=== PATIENT | female | born 1950 | race Caucasian/White ===

== ENCOUNTER 2017-05-29 08:55 | Inpatient (IN) | payer MEDICARE, MEDICAID ==
[~2017-05-29] VITALS: Ht 167.6 cm; Wt 69.6 kg
--- NOTE | 2017-05-29 09:23 | PHYS DOC ---
Past History Past Medical History: Dementia Past Surgical History: No Surgical History Smoking: Non-smoker Alcohol Use: None Drug Use: None Adult General Chief Complaint Chief Complaint: PSYCH EVALUATION HPI HPI Patient is a pleasant 66-year-old female who is living in a nursing facility right now with her caregivers brought her to the ER for a geriatric psychiatric evaluation secondary to her increased agitation, violence towards other members of the home and increased auditory hallucinations. Patient has had a six-month history of increasing aggression towards staff. There's been no change in medications, no trauma, her main complaint is bilateral ankle pain and foot pain is more increased with walking. She is also been refusing her medications refusing to eat and refusing to be compliant with staff. His continued to the point where staff cannot adequately take care of her. She denies any visual hallucinations, chest pain, shortness of breath, abdominal pain. Past medical problems include schizoaffective disorder SVT, hypothyroidism, Parkinson's, hypokalemia, hypertension, COPD, there is also report that given her schizoaffective disorder she is self harming by punching the wall throwing objects at staff and hallucinating. Hearing voices outside pinto and yelling refusing to eat meals and very paranoid. She was admitted to the monitor twice back in November 2016 in January 2017. Review of Systems Review of Systems Constitutional: Denies fever or chills [] Eyes: Denies change in visual acuity, redness, or eye pain [] HENT: Denies nasal congestion or sore throat [] Respiratory: Denies cough or shortness of breath [] Cardiovascular: No additional information not addressed in HPI [] GI: Denies abdominal pain, nausea, vomiting, bloody stools or diarrhea [] : Denies dysuria or hematuria [] Musculoskeletal: Denies back pain o chronic b/l ankle and foot pain Integument: Denies rash or skin lesions [] Neurologic: Denies headache, focal weakness or sensory changes [] Endocrine: Denies polyuria or polydipsia psych: She does hear voices. [] Physical Exam Physical Exam Impression is vital signs stable within normal limits with a normal blood pressure normal heart rate normal respiratory rate no fever. Constitutional: Well developed, well nourished, no acute distress, non-toxic appearance. [] HENT: Normocephalic, atraumatic, bilateral external ears normal, dry mucous members are no oral exudates poor dentition. Nose normal. [] Eyes: PERRLA, EOMI, conjunctiva normal, no discharge. [] Neck: Normal range of motion, no tenderness, supple, no stridor. [] Cardiovascular:Heart rate regular rhythm, no murmur [] Lungs & Thorax: Bilateral breath sounds clear to auscultation [] Abdomen: Bowel sounds normal, soft, no tenderness, no masses, no pulsatile masses. [] Skin: Warm, dry, no erythema, no rash. [] Back: No tenderness, no CVA tenderness. [] Extremities: No tenderness, no cyanosis, no clubbing, ROM intact, no edema. [] Neurologic: Patient is awake alert and oriented 2 with a resting tremor secondary to her Parkinson's. She was SPONTANEOUSLY WITH NORMAL 5 OUT OF 5 STRENGTH ACCORDING TO STAFF. PATIENT IS VASCULAR VENOUS CONGESTION OF THE LOWER EXTREMITY'S BILATERALLY CHANGE IN SKIN TONE AND COLOR.. [] Psychologic: sHe is very aggressive with regional understanding the situation. Is able to provide most of the history herself. [] Current Patient Data Vital Signs Vital Signs Date Time Temp Pulse Resp B/P (MAP) Pulse Ox O2 Delivery O2 Flow Rate FiO2 05/29/17 08:55 97.6 74 18 95 Room Air Lab Results Laboratory Tests Test 05/29/17 09:25 White Blood Count 8.4 x10^3/uL (4.0-11.0) Red Blood Count 4.10 x10^6/uL (3.50-5.40) Hemoglobin 12.4 g/dL (12.0-15.5) Hematocrit 37.6 % (36.0-47.0) Mean Corpuscular Volume 92 fL (79-100) Mean Corpuscular Hemoglobin 30 pg (25-35) Mean Corpuscular Hemoglobin Concent 33 g/dL (31-37) Red Cell Distribution Width 16.6 % (11.5-14.5) H Platelet Count 231 x10^3/uL (140-400) Neutrophils (%) (Auto) 54 % (31-73) Lymphocytes (%) (Auto) 36 % (24-48) Monocytes (%) (Auto) 6 % (0-9) Eosinophils (%) (Auto) 4 % (0-3) H Basophils (%) (Auto) 1 % (0-3) Neutrophils # (Auto) 4.5 x10^3uL (1.8-7.7) Lymphocytes # (Auto) 3.0 x10^3/uL (1.0-4.8) Monocytes # (Auto) 0.5 x10^3/uL (0.0-1.1) Eosinophils # (Auto) 0.3 x10^3/uL (0.0-0.7) Basophils # (Auto) 0.1 x10^3/uL (0.0-0.2) Sodium Level 146 mmol/L (136-145) H Potassium Level 4.3 mmol/L (3.5-5.1) Chloride Level 109 mmol/L (98-107) H Carbon Dioxide Level 33 mmol/L (21-32) H Anion Gap 4 (6-14) L Blood Urea Nitrogen 19 mg/dL (7-20) Creatinine 1.1 mg/dL (0.6-1.0) H Estimated GFR (Cockcroft-Gault) 49.5 BUN/Creatinine Ratio 17 (6-20) Glucose Level 112 mg/dL (70-99) H Calcium Level 9.2 mg/dL (8.5-10.1) Magnesium Level 2.3 mg/dL (1.8-2.4) Total Bilirubin 0.4 mg/dL (0.2-1.0) Aspartate Amino Transferase (AST) 13 U/L (15-37) L Alanine Aminotransferase (ALT) 11 U/L (14-59) L Alkaline Phosphatase 99 U/L (46-116) Troponin I Quantitative < 0.017 ng/mL (0-0.055) Total Protein 6.6 g/dL (6.4-8.2) Albumin 3.2 g/dL (3.4-5.0) L Albumin/Globulin Ratio 0.9 (1.0-1.7) L Salicylates Level 1.6 mg/dL (2.8-20.0) L Salicylate Last Dose Date 05/29/17 Salicylate Last Dose Time 0000 Acetaminophen Level < 2.0 mcg/mL (10-30) L Acetaminophen Last Dose Date Unknown Acetaminophen Last Dose Time Unknown EKG EKG [] EKG time 9:44 AM demonstrates atrial fibrillation with a heart rate of 56 no P waves discernible on EKG there is a nonspecific intraventricular delay with no specific ST segment elevations consistent with acute cardiac ischemia is a question will subtle ST segment depression in V1 and V2 [address] Krishnamurthy. Radiology/Procedures Radiology/Procedures [] Course & Med Decision Making Course & Med Decision Making Pertinent Labs and Imaging studies reviewed. (See chart for details) Here for medical screening exam for the psychiatric floor. Patient demonstrates an abnormal EKG chronic in nature likely, elevated sodium level CXLVI which will be concerning to her symptoms, elevated BUN/creatinine which looks chronic in nature as well. Patient's tox screen salicylates and acetaminophen level are all within unremarkable levels. Patient's been screened and ready for admission to the hospital once the urinalysis is complete Since urinalysis is returned there are no obvious signs of inflammation or infection causing her acute mental status changes. Patient is ready for admission to the psychiatric floor. [] Dragon Disclaimer Dragon Disclaimer This chart was dictated in whole or in part using Voice Recognition software in a busy, high-work load, and often noisy Emergency Department environment. It may contain unintended and wholly unrecognized errors or omissions. Departure Departure: Impression: Primary Impression: Dementia Additional Impression: Schizoaffective disorder Disposition: ADMITTED INPATIENT Admitting Physician: Other Condition: GUARDED Referrals: MARY ANN GRAY MD (PCP) Problem Qualifiers BRANDAN KRISHNAMURTHY MD May 29, 2017 09:23
[2017-05-29 09:40] LABS: BASO # 0.1 x10^3/uL (0.0-0.2); BASO % 1 % (0-3); EOS # 0.3 x10^3/uL (0.0-0.7); EOS % 4 % (0-3); HEMATOCRIT 37.6 % (36.0-47.0); HEMOGLOBIN 12.4 g/dL (12.0-15.5); LYMPH % 36 % (24-48); MEAN CORPUSCULAR HEMOGLOBIN 30 pg (25-35); MEAN CORPUSCULAR HGB CONC 33 g/dL (31-37); MEAN CORPUSCULAR VOLUME 92 fL (79-100); MONO # 0.5 x10^3/uL (0.0-1.1); MONO % 6 % (0-9); NEUT # 4.5 x10^3uL (1.8-7.7); NEUT % 54 % (31-73); PLATELET COUNT 231 x10^3/uL (140-400); RED CELL DISTRIBUTION WIDTH 16.6 % (11.5-14.5); WHITE BLOOD COUNT 8.4 x10^3/uL (4.0-11.0)
--- NOTE | 2017-05-29 09:53 | EKG ---
[address] [address] Test Date: 2017-05-29 Test Time: 09:44:42 Pat Name: AADIR PRECIADO Department: Room: Gender: F Upsetter: : 1950 Requested By: BRANDAN KRISHNAMURTHY Order Number: [id number] Reading MD: Mu Flores Measurements Intervals Pettigrew Rate: 56 P: PA: QRS: 45 QRSD: 132 T: 26 QT: 488 QTc: 474 Interpretive Statements SINUS RHYTHM NON SPECIFIC INTRAVENTRICULAR BLOCK RVH WITH REPOLARIZATION ABNORMALITY NONSPECIFIC ST-T WAVE CHANGES. RI6.01 Unconfirmed report No previous ECG available for comparison Electronically Signed On 06-04-2017 9:27:50 CDT by Mu Flores
[2017-05-29 09:54] LABS: ALBUMIN 3.2 g/dL (3.4-5.0); ALBUMIN/GLOBULIN RATIO 0.9 (1.0-1.7); CALCIUM 9.2 mg/dL (8.5-10.1); CREATININE 1.1 mg/dL (0.6-1.0); GFR 49.5; MAGNESIUM 2.3 mg/dL (1.8-2.4); POTASSIUM 4.3 mmol/L (3.5-5.1); TOTAL BILIRUBIN 0.4 mg/dL (0.2-1.0); TOTAL PROTEIN 6.6 g/dL (6.4-8.2)
[2017-05-29 09:55] LABS: ACETAMIN < 2.0 mcg/mL (10-30); SALIC 1.6 mg/dL (2.8-20.0)
[2017-05-29 11:37] LABS: AMPHETAMINE/METHAMPHETAMINE NEG (NEG); BARBITURATES NEG (NEG); BENZODIAZEPINES NEG (NEG); CANNABINOIDS NEG (NEG); COCAINE NEG (NEG); METHADONE NEG (NEG); OPIATES NEG (NEG); PHENCYCLIDINE NEG (NEG)
[2017-05-29 11:40] LABS: BACTERIA,URINE 0 /HPF (0-FEW); BILIRUBIN,URINE NEG (NEG); CLARITY,URINE CLEAR; COLOR,URINE YELLOW; GLUCOSE,URINE NEG (NEG); NITRITE,URINE NEG (NEG); RBC,URINE 0 /HPF (0-2); SQUAMOUS EPITHELIAL CELL,UR OCC /LPF; UROBILINOGEN,URINE 0.2 mg/dL (0.2 mg/dL); WBC,URINE RARE /HPF (0-4)
[2017-05-29 12:20] VITALS: BP 167/76
[2017-05-29] MEDS ORDERED: DILT60TA PO (13:32)
[2017-05-29] MEDS ORDERED: ALLO100T66 PO (13:32)
[2017-05-29] MEDS ORDERED: DEXT15DR5 OU (13:32)
[2017-05-29] MEDS ORDERED: ACET325T9 PO (13:32)
[2017-05-29] MEDS ORDERED: LEVO25TA55 PO (13:32)
[2017-05-29] MEDS ORDERED: ASPI-630 PO (13:32)
[2017-05-29] MEDS ORDERED: SENN8.6T99 PO (13:32)
[2017-05-29] MEDS ORDERED: POLY17PO5 PO (13:32)
[2017-05-29] MEDS ORDERED: NYST15PO9 TP (13:35)
[2017-05-29] MEDS ORDERED: DIVA125C PO ×2 (13:52)
[2017-05-29] MEDS ORDERED: OLAN5TAB5 PO (13:52)
[2017-05-29] MEDS ORDERED: QUET50TA5 PO (13:52)
[2017-05-29] MEDS ORDERED: QUET100T4 PO (13:52)
[2017-05-29] MEDS ORDERED: LORA0.5T PO (13:52)
[2017-05-29] MEDS ORDERED: OLAN10VI2 IM (13:52)
[2017-05-29] MEDS ORDERED: PRIM50TA PO (13:52)
[2017-05-29] MEDS ORDERED: NYSTATIN TOPICAL POWDER 15GM BOTTLE. TP PRN (14:15)
[2017-05-29] MEDS ORDERED: MAG HYDROX/AL HYDROX/SIMETH 30 ML ORAL.SUSP PO PRN (16:00)
[2017-05-29 16:05] VITALS: BP 168/71
[2017-05-29] MEDS: QUEtiapine 50 MG TABLET. PO SCH ×3 (16:58→21:00)
[2017-05-29] MEDS: LORazepam 0.5 MG TABLET PO PRN (16:58)
--- NOTE | 2017-05-29 19:57 | PDOC ---
Exam Darvin Demential Exam: Darvin Note: Please also refer to the separate dictated note~for this date of service dictated separately.~Patient seen individually. Discussed the patient with Nursing staff reviewed the chart.~Reviewed interim history and current functioning. Reviewed vital signs,~Labs/ Radiology~and current medications noted below. Continue current treatment with the changes noted in the dictated addendum note Assessment: Vital Signs: Vital Signs Date Time Temp Pulse Resp B/P (MAP) Pulse Ox O2 Delivery O2 Flow Rate FiO2 05/29/17 16:05 98.5 75 18 168/71 (103) 96 05/29/17 12:20 Room Air Labs: Laboratory Tests Test 05/29/17 09:25 05/29/17 11:10 White Blood Count 8.4 x10^3/uL (4.0-11.0) Red Blood Count 4.10 x10^6/uL (3.50-5.40) Hemoglobin 12.4 g/dL (12.0-15.5) Hematocrit 37.6 % (36.0-47.0) Mean Corpuscular Volume 92 fL (79-100) Mean Corpuscular Hemoglobin 30 pg (25-35) Mean Corpuscular Hemoglobin Concent 33 g/dL (31-37) Red Cell Distribution Width 16.6 % (11.5-14.5) H Platelet Count 231 x10^3/uL (140-400) Neutrophils (%) (Auto) 54 % (31-73) Lymphocytes (%) (Auto) 36 % (24-48) Monocytes (%) (Auto) 6 % (0-9) Eosinophils (%) (Auto) 4 % (0-3) H Basophils (%) (Auto) 1 % (0-3) Neutrophils # (Auto) 4.5 x10^3uL (1.8-7.7) Lymphocytes # (Auto) 3.0 x10^3/uL (1.0-4.8) Monocytes # (Auto) 0.5 x10^3/uL (0.0-1.1) Eosinophils # (Auto) 0.3 x10^3/uL (0.0-0.7) Basophils # (Auto) 0.1 x10^3/uL (0.0-0.2) Sodium Level 146 mmol/L (136-145) H Potassium Level 4.3 mmol/L (3.5-5.1) Chloride Level 109 mmol/L (98-107) H Carbon Dioxide Level 33 mmol/L (21-32) H Anion Gap 4 (6-14) L Blood Urea Nitrogen 19 mg/dL (7-20) Creatinine 1.1 mg/dL (0.6-1.0) H Estimated GFR (Cockcroft-Gault) 49.5 BUN/Creatinine Ratio 17 (6-20) Glucose Level 112 mg/dL (70-99) H Calcium Level 9.2 mg/dL (8.5-10.1) Magnesium Level 2.3 mg/dL (1.8-2.4) Iron Level 40 ug/dL (50-170) L Total Iron Binding Capacity 195 ug/dL (250-450) L Iron Saturation 21 % (15-34) Total Bilirubin 0.4 mg/dL (0.2-1.0) Aspartate Amino Transferase (AST) 13 U/L (15-37) L Alanine Aminotransferase (ALT) 11 U/L (14-59) L Alkaline Phosphatase 99 U/L (46-116) Troponin I Quantitative < 0.017 ng/mL (0-0.055) Total Protein 6.6 g/dL (6.4-8.2) Albumin 3.2 g/dL (3.4-5.0) L Albumin/Globulin Ratio 0.9 (1.0-1.7) L Vitamin B12 Level 275 pg/mL (247-911) Salicylates Level 1.6 mg/dL (2.8-20.0) L Salicylate Last Dose Date 05/29/17 Salicylate Last Dose Time 0000 Acetaminophen Level < 2.0 mcg/mL (10-30) L Acetaminophen Last Dose Date Unknown Acetaminophen Last Dose Time Unknown Urine Collection Type U cath Urine Color Yellow Urine Clarity Clear Urine pH 7.0 Urine Specific Dazey 1.015 Urine Protein Trace (NEG-TRACE) Urine Glucose (UA) Neg mg/dL (NEG) Urine Ketones (Stick) Neg mg/dL (NEG) Urine Blood Trace (NEG) Urine Nitrite Neg (NEG) Urine Bilirubin Neg (NEG) Urine Urobilinogen Dipstick 0.2 mg/dL (0.2 mg/dL) Urine Leukocyte Esterase Neg (NEG) Urine RBC 0 /HPF (0-2) Urine WBC Rare /HPF (0-4) Urine Squamous Epithelial Cells Occ /LPF Urine Bacteria 0 /HPF (0-FEW) Urine Opiates Screen Neg (NEG) Urine Methadone Screen Neg (NEG) Urine Barbiturates Neg (NEG) Urine Phencyclidine Screen Neg (NEG) Urine Amphetamine/Methamphetamine Neg (NEG) Urine Benzodiazepines Screen Neg (NEG) Urine Cocaine Screen Neg (NEG) Urine Cannabinoids Screen Neg (NEG) Urine Ethyl Alcohol Neg (NEG) Current Medications: Meds: Current Medications Acetaminophen (Tylenol) 650 mg PRN Q8HRS PRN PO PAIN; Start 05/29/17 at 14:15 Allopurinol (Zyloprim) 100 mg DAILY PO ; Start 05/30/17 at 09:00 Aspirin (Children'S Aspirin) 81 mg DAILY PO ; Start 05/30/17 at 09:00 Levothyroxine Sodium (Synthroid) 25 mcg DAILY06 PO ; Start 05/30/17 at 06:00 Nystatin (Nystop) 1 naida PRN BID PRN TP REDNESS; Start 05/29/17 at 14:15 Polyethylene Glycol (miraLAX) 17 gm DAILY PO ; Start 05/30/17 at 09:00 Primidone (Mysoline) 50 mg BID PO ; Start 05/29/17 at 21:00 Sennosides (Senna) 8.6 mg BID PO ; Start 05/29/17 at 21:00 Artificial Tears (Artificial Tears) 1 drop TID OU ; Start 05/29/17 at 21:00 Diltiazem HCl (Cardizem) 60 mg BID PO ; Start 05/29/17 at 21:00 Al Hydroxide/Mg Hydroxide (Mylanta Plus Xs) 15 ml PRN AFTMEALHC PRN PO DYSPEPSIA; Start 05/29/17 at 16:00 Magnesium Hydroxide (Milk Of Magnesia) 2,400 mg PRN QHS PRN PO CONSTIPATION; Start 05/29/17 at 16:00 Lorazepam (Ativan) 0.5 mg PRN Q4HRS PRN PO ANXIETY / AGITATION Last administered on 05/29/17 16:58; Start 05/29/17 at 16:45 Olanzapine (ZyPREXA ZYDIS) 5 mg PRN Q4HRS PRN PO PSYCHOSIS Last administered on 05/29/17 16:48; Start 8/8/17 at 16:45 Divalproex Sodium (Depakote Sprinkles) 500 mg DAILY PO ; Start 05/30/17 at 09:00 Divalproex Sodium (Depakote Sprinkles) 750 mg QHS PO ; Start 05/29/17 at 21:00 Quetiapine Fumarate (SEROquel) 150 mg 1700,2100 PO ; Start 05/29/17 at 17:00 Quetiapine Fumarate (SEROquel) 100 mg BIDWBKFT/ELINA PO ; Start 05/30/17 at 08:00; Stop 05/30/17 at 08:00; Status DC Pneumococcal Polyvalent Vaccine (Pneumovax 23) 0.5 ml ONCE ONCE VAX IM ; Start 05/30/17 at 09:00; Stop 05/30/17 at 09:01 Quetiapine Fumarate (SEROquel) 100 mg DAILY08 PO ; Start 05/30/17 at 08:00 Quetiapine Fumarate (SEROquel) 200 mg DAILYWLUN PO ; Start 05/30/17 at 12:00 Active Scripts Active Reported Lorazepam 0.5 Mg Tablet 1 Tab PO PRN Q4HRS PRN Zyprexa Zydis (Olanzapine) 5 Mg Tab.rapdis 5 Mg PO Q4HRS PRN Olanzapine Inj (Olanzapine) 10 Mg Vial 10 Mg IM PRN Q4HRS PRN Seroquel (Quetiapine Fumarate) 50 Mg Tablet 3 Tab PO BID17,21 Seroquel (Quetiapine Fumarate) 100 Mg Tablet 1 Tab PO BIDWBKFT/ELINA Primidone 50 Mg Tablet 50 Mg PO BID Depakote Sprinkle (Divalproex Sodium) 125 Mg Cap.sprink 750 Mg PO QHS Depakote Sprinkle (Divalproex Sodium) 125 Mg Cap.sprink 500 Mg PO DAILY Nystatin 15 Gm Powder 1 Naida TP BID PRN Diltiazem Hcl Tablet (Diltiazem Hcl) 60 Mg Tablet 60 Mg PO BID Tylenol (Acetaminophen) 325 Mg Tablet 2 Tab PO PRN Q8HRS PRN Artificial Tears Eye Drops (Dextran 70/Hypromellose) 15 Ml Drops 1 Drop EACHEYE TID Zyloprim (Allopurinol) 100 Mg Tablet 100 Mg PO DAILY Synthroid (Levothyroxine Sodium) 25 Mcg Tablet 1 Tab PO DAILY06 Senokot (Sennosides) 8.6 Mg Tablet 1 Tab PO BID Miralax (Polyethylene Glycol 3350) 17 Gm Powd.pack 1 Packet PO DAILY Aspirin 81 Mg Tab.chew 81 Mg PO DAILY Diagnosis: Problems: (1) Dementia (2) Schizoaffective disorder (3) Anxiety disorder (4) Impulse control disorder CARLA HOWARD MD May 29, 2017 19:57
[2017-05-29] MEDS: dilTIAZem HCL 30 MG TABLET PO SCH (20:09)
[2017-05-29] MEDS: SENNOSIDES 8.6 MG TABLET PO SCH (20:09)
[2017-05-29] MEDS: PRIMIDONE 50 MG TABLET PO SCH (20:09)
[2017-05-29] MEDS: DIVALPROEX 125 MG CAP.SPRINK PO SCH (20:10)
[2017-05-29] MEDS: POLYVINYL ALCOHOL 1.4% OPHTH SOLUTION 15ML BOTTLE. OU SCH (21:00)
--- NOTE | 2017-05-30 01:09 | ACF ---
Admission Criteria Forms PSYCHIATRIC DISORDERS Clinical Indications for Inpatient Care (Place 'X' for any and all applicable criteria): Ongoing inpatient care may be needed for 1 or more of the following(1)(2)(3)(4)( 6)(7)(8): [ ]I. Danger to self or others not manageable at lower level of care. [ ]II. Grave disability (eg, inability to perform self care necessary at lower level of care) [ ]III. Agitation or inappropriate behavior interfering with care for primary condition (eg, attempting to discontinue lines or drains prematurely, unable to cooperate with respiratory care) [X]IV. Severe disability or disorder indicated by ALL of the following: [X]a) Severe behavioral health disorder-related symptoms or condition indicated by 1 or more of the following: [ ]i) Severe problem with cognition, memory, judgment, or impulse control [X]ii) Severe clinical manifestations (eg, hallucinations, delusions, other acute psychotic symptoms, hebert, extreme agitation or anxiety) [X]b) Patient management at lower level of care is not feasible until acute intervention or modification is initiated. Extended stay beyond goal length of stay for the primary condition may be needed untilALLof the following are present(1)(2)(3)(4)(722)(23): [ ]a) Danger to self or others is absent or manageable at lower level of care [ ]b) Behavior crisis management, including physical or chemical restraints, is required and is not available at a lower level of care. [ ]c) Behavioral symptoms (e.g., agitation, somnolence, inappropriate behavior) are present, and are not manageable at a lower level of care. [ ]d) Patient cannot understand follow-up treatment and crisis plan. [ ]e) Provider and supports are sufficiently available at lower level of care. [ ]f) Patient can participate (e.g., verify absence of plan for harm) and is in needed of monitoring. The original [facility] Matter and Form content created by [facility] [employer] has been revised. The portions of the content which have been revised are identified through the use of italic text, and [employer] has neither reviewed nor approved the modified material. All other unmodified content is copyright [facility]. Please see references footnoted in the original [facility] edition 2015 Admission Criteria Met?: Yes MISHEL CRAWLEY May 30, 2017 01:09
--- NOTE | 2017-05-30 01:39 | PN ---
DATE: 05/29/2017 Psychiatric Admission History and Evaluation IDENTIFYING DATA: The patient is a 66-year-old female referred to us from [facility] in [place], [place] by Dr. Almita Gibson, her primary care physician, Dr. Mathew Traylor, psychiatrist, on account of worsening symptoms of her schizoaffective disorder, bipolar type. Reportedly, the patient has been "self harming, punching the pinto, throwing objects at staff members, oblivious of the danger posed by them." She has been hallucinating, hearing voices on the other side of the wall, yelling, refusing medications and paranoid. Symptoms have worsened for the past 3-4 months. She has failed outpatient psychiatric interventions and 2 psychiatric inpatient admissions at [facility] in [place], [place] in 11/2016 and 01/2017. CHIEF COMPLAINT: "Yes, I get upset. I am doing alright." HISTORY OF PRESENT ILLNESS: The patient has a long history of schizoaffective disorder, bipolar type. She has been residing at the [facility] nursing facility for some time. More recently getting angry, agitated, aggressive and increasingly psychotic. She has had significant sleep and appetite changes. Behaviors have been dangerous, staff have been using p.r.n. intramuscular Zyprexa and she has had to be on one-on-one status at the longterm due to her dangerous, out of control, unmanageable behaviors. REVIEW OF SYSTEMS: No clear suicidal or homicidal ideation other than the dangerous behaviors noted above. PAST PSYCHIATRIC HISTORY: Schizoaffective disorder, bipolar type, with psychotic features. MEDICAL HISTORY: Supraventricular tachycardia, hypothyroidism, Parkinson's disease, hypokalemia, hypertension, COPD, dry eye syndrome, functional dyspepsia, dysphagia, type 2 diabetes mellitus, gout. Diet is regular. She takes her medications. Whole UA in the ER is negative. DRUG ALLERGIES: CODEINE, FELDENE, PHENERGAN AND ORPHENOGEN. CODE STATUS: DNR. CURRENT PSYCHOTROPICS: Depakote 500 mg a.m. and 750 at bedtime, primidone 50 mg b.i.d., Seroquel 100 mg 0800 and noon and 150 mg at 1700 and 2100, Zyprexa IM p.r.n. and 5 mg q. 4 hours p.r.n. and Ativan 0.5 mg q. 4 hours p.r.n. FAMILY HISTORY: Noncontributory. SOCIAL HISTORY: No alcohol, drug abuse, physical, sexual or elder abuse history is noted. She is not known to be perpetrator . MENTAL STATUS EXAMINATION: The patient was seen individually on the evening of 05/29. She is oriented to herself and situation and she is in a wheelchair. jail staff report she can transfer herself with assistance, but more recently has been insistent that staff use the Gene lift. She has been paranoid, suspicious and has had intermittent hallucinations. Speech is coherent. Thought processes somewhat loose at times. Abstraction fair, computation impaired, attention span short, language function intact. Mood and affect remains labile. Intellect average. Insight limited, judgment marginal to standard questioning. Labs reviewed. REVIEW OF SYSTEMS: Ambulation impaired. No CV, , pulmonary, eye, ENT system symptoms on review. IMPRESSION: Schizoaffective disorder, bipolar type, mixed with psychotic features; anxiety disorder, unspecified; impulse control disorder, unspecified. Rest diagnoses as above. PLAN: Admit to the Geropsychiatry Unit at [facility]. I will see the patient daily individually from a psychiatric standpoint. Medical followup with Dr. Booth/Dr. Almeida. The patient has been quite demanding during the day today at lunchtime. At around 5:00 p.m., she has been screaming, spitting out her medications, quite psychotic and labile. We will increase her Seroquel, which is currently at a total dosage of 500 mg a day to a total dosage of 600 mg a day and continue Depakote. Check labs and valproic acid level to reach a therapeutic level of the Depakote. We will make further adjustments in the psychotropics as clinically indicated. CARLA HOWARD MD DR: MOISES/tamera JOB#: [id number] / [id number]
[2017-05-30] MEDS: LEVOTHYROXINE 25 MCG TABLET. PO SCH (05:06)
[2017-05-30 06:09] VITALS: BP 133/75
[2017-05-30 06:13] LABS: HEMOGLOBIN A1C 4.8 % (4.8-5.6); T3 TOTAL 81 ng/dL (71-180); THYROXINE 6.5 ug/dL (4.5-12.0)
[2017-05-30] MEDS ORDERED: QUEtiapine 100 MG TABLET. PO SCH (08:00)
[2017-05-30] MEDS: PRIMIDONE 50 MG TABLET PO SCH ×3 (09:00→19:55)
[2017-05-30] MEDS: SENNOSIDES 8.6 MG TABLET PO SCH ×3 (09:00→19:56)
[2017-05-30] MEDS: POLYVINYL ALCOHOL 1.4% OPHTH SOLUTION 15ML BOTTLE. OU SCH ×3 (09:00→20:43)
[2017-05-30] MEDS: ALLOPURINOL 100 MG TABLET. PO SCH ×2 (09:00→09:04)
[2017-05-30] MEDS: ASPIRIN 81 MG TAB.CHEW PO SCH ×2 (09:00→09:04)
[2017-05-30] MEDS ORDERED: PNEUMOC CONJ VACC 23-VALENT 0.5 ML VIAL. VAX IM ONE (09:00)
[2017-05-30] MEDS: dilTIAZem HCL 30 MG TABLET PO SCH ×2 (09:03→19:56)
[2017-05-30] MEDS: POLYETHYLENE GLYCOL 3350 17 GM PACKET. PO SCH (09:04)
[2017-05-30] MEDS: QUEtiapine 100 MG TABLET. PO SCH ×3 (09:04→11:53)
[2017-05-30] MEDS: DIVALPROEX 125 MG CAP.SPRINK PO SCH ×2 (09:04→19:57)
[2017-05-30 10:11] LABS: VAL ACID 46 mcg/mL (50-100)
[2017-05-30 13:46] LABS: THYROID STIM HORMONE (TSH) 3.865 uIU/mL (0.358-3.740)
[2017-05-30 16:18] VITALS: BP 119/69
[2017-05-30] MEDS: QUEtiapine 50 MG TABLET. PO SCH ×2 (17:23→19:55)
--- NOTE | 2017-05-30 19:51 | PDOC ---
Exam Darvin Demential Exam: Darvin Note: Please also refer to the separate dictated note~for this date of service dictated separately.~Patient seen individually. Discussed the patient with Nursing staff reviewed the chart.~Reviewed interim history and current functioning. Reviewed vital signs,~Labs/ Radiology~and current medications noted below. Continue current treatment with the changes noted in the dictated addendum note Assessment: Vital Signs: Vital Signs Date Time Temp Pulse Resp B/P (MAP) Pulse Ox O2 Delivery O2 Flow Rate FiO2 05/30/17 16:18 98.6 80 20 119/69 (86) 93 05/29/17 12:20 Room Air I&O Intake and Output 05/30/17 07:00 Intake Total 840 ml Balance 840 ml Intake Oral 840 ml # Voids 3 Labs: Laboratory Tests Test 05/30/17 09:22 Valproic Acid Level 46 mcg/mL (50-100) L Valproic Acid Last Dose Date 05/29/2017 Valproic Acid Last Dose Time 2100 Current Medications: Meds: Current Medications Acetaminophen (Tylenol) 650 mg PRN Q8HRS PRN PO PAIN; Start 05/29/17 at 14:15 Allopurinol (Zyloprim) 100 mg DAILY PO ; Start 05/30/17 at 09:00 Aspirin (Children'S Aspirin) 81 mg DAILY PO ; Start 05/30/17 at 09:00 Levothyroxine Sodium (Synthroid) 25 mcg DAILY06 PO Last administered on 05:06; Start 05/30/17 at 06:00 Nystatin (Nystop) 1 naida PRN BID PRN TP REDNESS; Start 05/29/17 at 14:15 Polyethylene Glycol (miraLAX) 17 gm DAILY PO Last administered on 05/30/17 09: 04; Start 05/30/17 at 09:00 Primidone (Mysoline) 50 mg BID PO Last administered on 05/29/17 20:09; Start at 21:00 Sennosides (Senna) 8.6 mg BID PO Last administered on 05/29/17 20:09; Start 05/29/17 at 21:00 Artificial Tears (Artificial Tears) 1 drop TID OU ; Start 05/29/17 at 21:00 Diltiazem HCl (Cardizem) 60 mg BID PO Last administered on 05/30/17 09:03; Start 05/29/17 at 21:00 Al Hydroxide/Mg Hydroxide (Mylanta Plus Xs) 15 ml PRN AFTMEALHC PRN PO DYSPEPSIA; Start 05/29/17 at 16:00 Magnesium Hydroxide (Milk Of Magnesia) 2,400 mg PRN QHS PRN PO CONSTIPATION; Start 05/29/17 at 16:00 Lorazepam (Ativan) 0.5 mg PRN Q4HRS PRN PO ANXIETY / AGITATION Last administered on 05/29/17 16:58; Start 05/29/17 at 16:45 Olanzapine (ZyPREXA ZYDIS) 5 mg PRN Q4HRS PRN PO PSYCHOSIS Last administered on 05/29/17 16:48; Start 05/29/17 at 16:45 Divalproex Sodium (Depakote Sprinkles) 500 mg DAILY PO Last administered on 05/30 09:04; Start 05/30/17 at 09:00 Divalproex Sodium (Depakote Sprinkles) 750 mg QHS PO Last administered on 20:10; Start 05/29/17 at 21:00 Quetiapine Fumarate (SEROquel) 150 mg 1700,2100 PO Last administered on 17:23; Start 05/29/17 at 17:00 Quetiapine Fumarate (SEROquel) 100 mg BIDWBKFT/ELINA PO ; Start 05/30/17 at 08:00; Stop 05/30/17 at 08:00; Status DC Pneumococcal Polyvalent Vaccine (Pneumovax 23) 0.5 ml ONCE ONCE VAX IM Last administered on 05/30/17 09:08; Start 05/30/17 at 09:00; Stop 05/30/17 at 09:01; Status DC Quetiapine Fumarate (SEROquel) 100 mg DAILY08 PO Last administered on 05/30/17 09:32; Start 05/30/17 at 08:00 Quetiapine Fumarate (SEROquel) 200 mg DAILYWLUN PO Last administered on 11:53; Start 05/30/17 at 12:00 Active Scripts Active Reported Lorazepam 0.5 Mg Tablet 1 Tab PO PRN Q4HRS PRN Zyprexa Zydis (Olanzapine) 5 Mg Tab.rapdis 5 Mg PO Q4HRS PRN Olanzapine Inj (Olanzapine) 10 Mg Vial 10 Mg IM PRN Q4HRS PRN Seroquel (Quetiapine Fumarate) 50 Mg Tablet 3 Tab PO BID17,21 Seroquel (Quetiapine Fumarate) 100 Mg Tablet 1 Tab PO BIDWBKFT/ELINA Primidone 50 Mg Tablet 50 Mg PO BID Depakote Sprinkle (Divalproex Sodium) 125 Mg Cap.sprink 750 Mg PO QHS Depakote Sprinkle (Divalproex Sodium) 125 Mg Cap.sprink 500 Mg PO DAILY Nystatin 15 Gm Powder 1 Naida TP BID PRN Diltiazem Hcl Tablet (Diltiazem Hcl) 60 Mg Tablet 60 Mg PO BID Tylenol (Acetaminophen) 325 Mg Tablet 2 Tab PO PRN Q8HRS PRN Artificial Tears Eye Drops (Dextran 70/Hypromellose) 15 Ml Drops 1 Drop EACHEYE TID Zyloprim (Allopurinol) 100 Mg Tablet 100 Mg PO DAILY Synthroid (Levothyroxine Sodium) 25 Mcg Tablet 1 Tab PO DAILY06 Senokot (Sennosides) 8.6 Mg Tablet 1 Tab PO BID Miralax (Polyethylene Glycol 3350) 17 Gm Powd.pack 1 Packet PO DAILY Aspirin 81 Mg Tab.chew 81 Mg PO DAILY Diagnosis: Problems: (1) Dementia (2) Schizoaffective disorder (3) Anxiety disorder (4) Impulse control disorder CARLA HOWARD MD May 30, 2017 19:51
[2017-05-31] MEDS: LEVOTHYROXINE 25 MCG TABLET. PO SCH (05:54)
[2017-05-31 06:52] VITALS: BP 102/60
[2017-05-31] MEDS: DIVALPROEX 125 MG CAP.SPRINK PO SCH ×2 (08:58→19:39)
[2017-05-31] MEDS: ALLOPURINOL 100 MG TABLET. PO SCH (08:58)
[2017-05-31] MEDS: dilTIAZem HCL 30 MG TABLET PO SCH ×2 (08:59→19:36)
[2017-05-31] MEDS: SENNOSIDES 8.6 MG TABLET PO SCH ×2 (08:59→19:36)
[2017-05-31] MEDS: ASPIRIN 81 MG TAB.CHEW PO SCH (08:59)
[2017-05-31] MEDS: POLYETHYLENE GLYCOL 3350 17 GM PACKET. PO SCH (08:59)
[2017-05-31] MEDS: PRIMIDONE 50 MG TABLET PO SCH ×2 (08:59→19:36)
[2017-05-31] MEDS: QUEtiapine 100 MG TABLET. PO SCH ×2 (08:59→12:14)
[2017-05-31] MEDS: POLYVINYL ALCOHOL 1.4% OPHTH SOLUTION 15ML BOTTLE. OU SCH ×3 (09:01→19:35)
[2017-05-31] MEDS: LORazepam 0.5 MG TABLET PO PRN (13:12)
[2017-05-31 16:32] VITALS: BP 114/70
[2017-05-31] MEDS: QUEtiapine 50 MG TABLET. PO SCH ×2 (17:28→19:36)
--- NOTE | 2017-05-31 18:51 | OP ---
DATE OF SURGERY: 05/30/2017 PSYCHIATRIC PROGRESS NOTE This is a late entry of 05/30/2017 covers elements not covered in my initial note of 05/30/2017. SUBJECTIVE: The patient slept 6-1/2 hours previous evening was somewhat paranoid in the morning. She is refusing the "white pills" because she feels these are poisonous. She took her Seroquel yelling is better. REVIEW OF SYSTEMS: Ambulation impaired. No CV, , pulmonary, eye, ENT system symptoms on review. MENTAL STATUS EXAM: Reasonably oriented. Speech coherent at times pressured. Abstraction fair, computation impaired, language function intact, attention span short. Mood and affect remains labile. IMPRESSION: Unchanged from initial note. PLAN: Continue current psychotropics including the increased Seroquel together with the Depakote. Check valproic acid level adjust to reach a therapeutic level. MAN Kranthi HOWARD MD DR: MOISES/tamera JOB#: [id number] / [id number]
--- NOTE | 2017-05-31 19:53 | PDOC ---
Exam Darvin Demential Exam: Darvin Note: Please also refer to the separate dictated note~for this date of service dictated separately.~Patient seen individually. Discussed the patient with Nursing staff reviewed the chart.~Reviewed interim history and current functioning. Reviewed vital signs,~Labs/ Radiology~and current medications noted below. Continue current treatment with the changes noted in the dictated addendum note Assessment: Vital Signs: Vital Signs Date Time Temp Pulse Resp B/P (MAP) Pulse Ox O2 Delivery O2 Flow Rate FiO2 05/31/17 19:36 68 114/70 05/31/17 16:32 98.6 18 97 Room Air I&O Intake and Output 05/31/17 07:00 Intake Total 1560 ml Balance 1560 ml Intake Oral 1560 ml # Voids 2 Current Medications: Meds: Current Medications Acetaminophen (Tylenol) 650 mg PRN Q8HRS PRN PO PAIN; Start 05/29/17 at 14:15 Allopurinol (Zyloprim) 100 mg DAILY PO Last administered on 05/31/17 08:58; Start 05/30/17 at 09:00 Aspirin (Children'S Aspirin) 81 mg DAILY PO Last administered on 05/31/17 08: 59; Start 05/30/17 at 09:00 Levothyroxine Sodium (Synthroid) 25 mcg DAILY06 PO Last administered on 05:54; Start 05/30/17 at 06:00 Nystatin (Nystop) 1 naida PRN BID PRN TP REDNESS; Start 05/29/17 at 14:15 Polyethylene Glycol (miraLAX) 17 gm DAILY PO Last administered on 05/31/17 08: 59; Start 05/30/17 at 09:00 Primidone (Mysoline) 50 mg BID PO Last administered on 05/31/17 19:36; Start 05/29/17 at 21:00 Sennosides (Senna) 8.6 mg BID PO Last administered on 05/31/17 19:36; Start at 21:00 Artificial Tears (Artificial Tears) 1 drop TID OU Last administered on 19:35; Start 05/29/17 at 21:00 Diltiazem HCl (Cardizem) 60 mg BID PO Last administered on 05/31/17 19:36; Start 05/29/17 at 21:00 Al Hydroxide/Mg Hydroxide (Mylanta Plus Xs) 15 ml PRN AFTMEALHC PRN PO DYSPEPSIA; Start 05/29/17 at 16:00 Magnesium Hydroxide (Milk Of Magnesia) 2,400 mg PRN QHS PRN PO CONSTIPATION; Start 05/29/17 at 16:00 Lorazepam (Ativan) 0.5 mg PRN Q4HRS PRN PO ANXIETY / AGITATION Last administered on 05/31/17 13:12; Start 05/29/17 at 16:45 Olanzapine (ZyPREXA ZYDIS) 5 mg PRN Q4HRS PRN PO PSYCHOSIS Last administered on 05/29/17 16:48; Start 05/29/17 at 16:45 Divalproex Sodium (Depakote Sprinkles) 500 mg DAILY PO Last administered on 08:58; Start 05/30/17 at 09:00; Stop 05/31/17 at 12:04; Status DC Divalproex Sodium (Depakote Sprinkles) 750 mg QHS PO Last administered on 19:57; Start 05/29/17 at 21:00; Stop 05/31/17 at 12:04; Status DC Quetiapine Fumarate (SEROquel) 150 mg 1700,2100 PO Last administered on 19:36; Start 05/29/17 at 17:00 Quetiapine Fumarate (SEROquel) 100 mg BIDWBKFT/ELINA PO ; Start 05/30/17 at 08:00; Stop 05/30/17 at 08:00; Status DC Pneumococcal Polyvalent Vaccine (Pneumovax 23) 0.5 ml ONCE ONCE VAX IM Last administered on 05/30/17 09:08; Start 05/30/17 at 09:00; Stop 05/30/17 at 09:01; Status DC Quetiapine Fumarate (SEROquel) 100 mg DAILY08 PO Last administered on 08:59; Start 05/30/17 at 08:00 Quetiapine Fumarate (SEROquel) 200 mg DAILYWLUN PO Last administered on 12:14; Start 05/30/17 at 12:00 Divalproex Sodium (Depakote Sprinkles) 1,000 mg QHS PO Last administered on t 19:39; Start 05/31/17 at 21:00 Divalproex Sodium (Depakote Sprinkles) 750 mg DAILY PO ; Start 06/01/17 at 09:00 Atorvastatin Calcium (Lipitor) 20 mg QHS PO ; Start 05/31/17 at 21:00 Cyanocobalamin (Vitamin B-12) 1,000 mcg [id number] IM ; Start 06/01/17 at 09:00 Vitamin D (Vitamin D3) 50,000 unit WEEKLY PO ; Start 06/01/17 at 09:00 Active Scripts Active Reported Lorazepam 0.5 Mg Tablet 1 Tab PO PRN Q4HRS PRN Zyprexa Zydis (Olanzapine) 5 Mg Tab.rapdis 5 Mg PO Q4HRS PRN Olanzapine Inj (Olanzapine) 10 Mg Vial 10 Mg IM PRN Q4HRS PRN Seroquel (Quetiapine Fumarate) 50 Mg Tablet 3 Tab PO BID17, Seroquel (Quetiapine Fumarate) 100 Mg Tablet 1 Tab PO BIDWBKFT/ELINA Primidone 50 Mg Tablet 50 Mg PO BID Depakote Sprinkle (Divalproex Sodium) 125 Mg Cap.sprink 750 Mg PO QHS Depakote Sprinkle (Divalproex Sodium) 125 Mg Cap.sprink 500 Mg PO DAILY Nystatin 15 Gm Powder 1 Naida TP BID PRN Diltiazem Hcl Tablet (Diltiazem Hcl) 60 Mg Tablet 60 Mg PO BID Tylenol (Acetaminophen) 325 Mg Tablet 2 Tab PO PRN Q8HRS PRN Artificial Tears Eye Drops (Dextran 70/Hypromellose) 15 Ml Drops 1 Drop EACHEYE TID Zyloprim (Allopurinol) 100 Mg Tablet 100 Mg PO DAILY Synthroid (Levothyroxine Sodium) 25 Mcg Tablet 1 Tab PO DAILY06 Senokot (Sennosides) 8.6 Mg Tablet 1 Tab PO BID Miralax (Polyethylene Glycol 3350) 17 Gm Powd.pack 1 Packet PO DAILY Aspirin 81 Mg Tab.chew 81 Mg PO DAILY Diagnosis: Problems: (1) Dementia (2) Schizoaffective disorder (3) Anxiety disorder (4) Impulse control disorder CARLA HOWARD MD May 31, 2017 19:53
--- NOTE | 2017-05-31 20:22 | HP ---
ADMIT DATE: 05/29/2017 REASON FOR ADMISSION TO [facility]: A 66-year-old female who was admitted on 05/29/2017 from [facility] in [place], [place]. She has been throwing objects at staff, hallucinating, hearing voices on the other side of the wall, yelling, refusing her meds and having paranoia. Onset of symptoms 3-4 months. PAST MEDICAL HISTORY: Schizoaffective disorder, supraventricular tachycardia, hypothyroidism, Parkinson disease, hypokalemia, hypertension, COPD, type 2 diabetes. ALLERGIES: CODEINE, ORPHENADRINE, PIROXICAM, PROMETHAZINE. MEDICATIONS: Reviewed. Do not see any p.r.n's that have been added except for lorazepam p.r.n. on 05/04/2017. HABITS: Do not believe she is able to smoke or drink. Functionality: The patient is [employer] total care patient. SOCIAL HISTORY: She does not walk. REVIEW OF SYSTEMS: The patient is very withdrawn and is not answering very many questions, very difficult to hear what she is saying. So did not get accurate review of systems because she is not answering my questions. OBJECTIVE: VITAL SIGNS: Blood pressure 119/69, pulse 80, respirations 20, temperature 98.6, pulse ox 93% on room air. Please note I had also gone to see this patient on 05/30/2017, but she was sleeping. GENERAL: The patient's color is pale. HEENT: Her eyes are clear. She has a significant ptosis of her eyelids, could not check the pupils. Her nose was patent. Her tongue was moist. NECK: Supple. LUNGS: Clear. CARDIOVASCULAR: Regular rhythm and rate with a 2/6 systolic murmur. ABDOMEN: Soft, nontender. EXTREMITIES: Without edema. NEUROLOGIC: Functionality, very limited use of hands and legs, can move her arms but minimally. She does have a tremor and could not take her through the cranial nerves. MENTAL STATUS: The patient is very quiet and withdrawn. LABORATORY DATA: Normal CBC and TSH is 3.865, vitamin D is 11.8. She also has elevated cholesterol and vitamin B12 was 275. ASSESSMENT: 1. Schizoaffective disorder. 2. Functional quadriplegia. 3. Fall risk. 4. Vitamin D deficiency. 5. Hyperlipidemia. 6. Low normal B12. We will replace per biological science technician's recommendation. 7. Diabetes. 8. Chronic obstructive pulmonary disease. 9. Hypertension. PLAN: Follow up with Dr. Fofana. Treat medical conditions. PAO ARRIOLA DO DR: JB/tamera JOB#: [id number] / [id number]
[2017-05-31] MEDS: ATORVASTATIN CALCIUM 20 MG TABLET PO SCH (21:00)
[2017-06-01 05:52] VITALS: BP 154/54
[2017-06-01] MEDS: LEVOTHYROXINE 25 MCG TABLET. PO SCH (06:42)
[2017-06-01] MEDS: QUEtiapine 100 MG TABLET. PO SCH ×3 (08:59→12:51)
[2017-06-01] MEDS ORDERED: CYANOCOBALAMIN (VITAMIN B-12) 1,000 MCG/ML VIAL IM SCH (09:00)
[2017-06-01] MEDS: SENNOSIDES 8.6 MG TABLET PO SCH ×2 (09:00→19:28)
[2017-06-01] MEDS: CHOLECALCIFEROL (VITAMIN D3) 50,000 UNIT CAPSULE PO SCH (09:00)
[2017-06-01] MEDS: DIVALPROEX 125 MG CAP.SPRINK PO SCH ×2 (09:06→19:25)
[2017-06-01] MEDS: POLYVINYL ALCOHOL 1.4% OPHTH SOLUTION 15ML BOTTLE. OU SCH ×3 (09:31→20:39)
[2017-06-01] MEDS: ASPIRIN 81 MG TAB.CHEW PO SCH (12:49)
[2017-06-01] MEDS: dilTIAZem HCL 30 MG TABLET PO SCH ×2 (12:49→19:25)
[2017-06-01] MEDS: POLYETHYLENE GLYCOL 3350 17 GM PACKET. PO SCH (12:50)
[2017-06-01] MEDS: ALLOPURINOL 100 MG TABLET. PO SCH (12:50)
[2017-06-01] MEDS: PRIMIDONE 50 MG TABLET PO SCH ×2 (12:50→19:29)
[2017-06-01 16:11] VITALS: BP 117/62
[2017-06-01] MEDS: QUEtiapine 50 MG TABLET. PO SCH ×2 (16:27→19:26)
[2017-06-01] MEDS: ATORVASTATIN CALCIUM 20 MG TABLET PO SCH (19:29)
[2017-06-01] MEDS: risperiDONE 0.5 MG TABLET. PO SCH (19:30)
--- NOTE | 2017-06-01 20:01 | PDOC ---
Exam Darvin Demential Exam: Darvin Note: Please also refer to the separate dictated note~for this date of service dictated separately.~Patient seen individually. Discussed the patient with Nursing staff reviewed the chart.~Reviewed interim history and current functioning. Reviewed vital signs,~Labs/ Radiology~and current medications noted below. Continue current treatment with the changes noted in the dictated addendum note Assessment: Vital Signs: Vital Signs Date Time Temp Pulse Resp B/P (MAP) Pulse Ox O2 Delivery O2 Flow Rate FiO2 06/01/17 19:25 81 117/62 06/01/17 16:11 97.9 16 98 05/31/17 16:32 Room Air I&O Intake and Output 06/01/17 07:00 Intake Total 1240 ml Balance 1240 ml Intake Oral 1240 ml Current Medications: Meds: Current Medications Acetaminophen (Tylenol) 650 mg PRN Q8HRS PRN PO PAIN; Start 05/29/17 at 14:15 Allopurinol (Zyloprim) 100 mg DAILY PO Last administered on 06/01/17 12:50; Start 05/30/17 at 09:00 Aspirin (Children'S Aspirin) 81 mg DAILY PO Last administered on 06/01/17 12: 49; Start 05/30/17 at 09:00 Levothyroxine Sodium (Synthroid) 25 mcg DAILY06 PO Last administered on 06:42; Start 05/30/17 at 06:00 Nystatin (Nystop) 1 naida PRN BID PRN TP REDNESS; Start 05/29/17 at 14:15 Polyethylene Glycol (miraLAX) 17 gm DAILY PO Last administered on 06/01/17 12: 50; Start 05/30/17 at 09:00 Primidone (Mysoline) 50 mg BID PO Last administered on 06/01/17 19:29; Start 05/29/17 at 21:00 Sennosides (Senna) 8.6 mg BID PO Last administered on 06/01/17 19:28; Start at 21:00 Artificial Tears (Artificial Tears) 1 drop TID OU Last administered on 19:35; Start 05/29/17 at 21:00 Diltiazem HCl (Cardizem) 60 mg BID PO Last administered on 06/01/17 19:25; Start 05/29/17 at 21:00 Al Hydroxide/Mg Hydroxide (Mylanta Plus Xs) 15 ml PRN AFTMEALHC PRN PO DYSPEPSIA; Start 05/29/17 at 16:00 Magnesium Hydroxide (Milk Of Magnesia) 2,400 mg PRN QHS PRN PO CONSTIPATION; Start 05/29/17 at 16:00 Lorazepam (Ativan) 0.5 mg PRN Q4HRS PRN PO ANXIETY / AGITATION Last administered on 05/31/17 13:12; Start 05/29/17 at 16:45 Olanzapine (ZyPREXA ZYDIS) 5 mg PRN Q4HRS PRN PO PSYCHOSIS Last administered on 06/01/17 18:37; Start 05/29/17 at 16:45 Divalproex Sodium (Depakote Sprinkles) 500 mg DAILY PO Last administered on 08:58; Start 05/30/17 at 09:00; Stop 05/31/17 at 12:04; Status DC Divalproex Sodium (Depakote Sprinkles) 750 mg QHS PO Last administered on 19:57; Start 05/29/17 at 21:00; Stop 05/31/17 at 12:04; Status DC Quetiapine Fumarate (SEROquel) 150 mg 1700,2100 PO Last administered on 19:26; Start 05/29/17 at 17:00 Quetiapine Fumarate (SEROquel) 100 mg BIDWBKFT/ELINA PO ; Start 05/30/17 at 08:00; Stop 05/30/17 at 08:00; Status DC Pneumococcal Polyvalent Vaccine (Pneumovax 23) 0.5 ml ONCE ONCE VAX IM Last administered on 05/30/17 09:08; Start 05/30/17 at 09:00; Stop 05/30/17 at 09:01; Status DC Quetiapine Fumarate (SEROquel) 100 mg DAILY08 PO Last administered on 12:51; Start 05/30/17 at 08:00; Stop 06/01/17 at 18:41; Status DC Quetiapine Fumarate (SEROquel) 200 mg DAILYWLUN PO Last administered on 12:14; Start 05/30/17 at 12:00 Divalproex Sodium (Depakote Sprinkles) 1,000 mg QHS PO Last administered on 19:25; Start 05/31/17 at 21:00 Divalproex Sodium (Depakote Sprinkles) 750 mg DAILY PO Last administered on 09:06; Start 06/01/17 at 09:00 Atorvastatin Calcium (Lipitor) 20 mg QHS PO Last administered on 06/01/17 19: 29; Start 05/31/17 at 21:00 Cyanocobalamin (Vitamin B-12) 1,000 mcg [id number] IM ; Start 06/01/17 at 09:00 Vitamin D (Vitamin D3) 50,000 unit WEEKLY PO ; Start 06/01/17 at 09:00 Quetiapine Fumarate (SEROquel) 50 mg DAILY08 PO ; Start 06/02/17 at 08:00 Risperidone (RisperDAL) 0.5 mg BID PO Last administered on 06/01/17 19:30; Start 06/01/17 at 21:00 Active Scripts Active Reported Lorazepam 0.5 Mg Tablet 1 Tab PO PRN Q4HRS PRN Zyprexa Zydis (Olanzapine) 5 Mg Tab.rapdis 5 Mg PO Q4HRS PRN Olanzapine Inj (Olanzapine) 10 Mg Vial 10 Mg IM PRN Q4HRS PRN Seroquel (Quetiapine Fumarate) 50 Mg Tablet 3 Tab PO BID17,21 Seroquel (Quetiapine Fumarate) 100 Mg Tablet 1 Tab PO BIDWBKFT/ELINA Primidone 50 Mg Tablet 50 Mg PO BID Depakote Sprinkle (Divalproex Sodium) 125 Mg Cap.sprink 750 Mg PO QHS Depakote Sprinkle (Divalproex Sodium) 125 Mg Cap.sprink 500 Mg PO DAILY Nystatin 15 Gm Powder 1 Naida TP BID PRN Diltiazem Hcl Tablet (Diltiazem Hcl) 60 Mg Tablet 60 Mg PO BID Tylenol (Acetaminophen) 325 Mg Tablet 2 Tab PO PRN Q8HRS PRN Artificial Tears Eye Drops (Dextran 70/Hypromellose) 15 Ml Drops 1 Drop EACHEYE TID Zyloprim (Allopurinol) 100 Mg Tablet 100 Mg PO DAILY Synthroid (Levothyroxine Sodium) 25 Mcg Tablet 1 Tab PO DAILY06 Senokot (Sennosides) 8.6 Mg Tablet 1 Tab PO BID Miralax (Polyethylene Glycol 3350) 17 Gm Powd.pack 1 Packet PO DAILY Aspirin 81 Mg Tab.chew 81 Mg PO DAILY Diagnosis: Problems: (1) Dementia (2) Schizoaffective disorder (3) Anxiety disorder (4) Impulse control disorder (5) Mild cognitive disorder CARLA HOWARD MD Jun 01, 2017 20:01
[2017-06-01] MEDS ORDERED: CHOL500050 PO (22:15)
[2017-06-01] MEDS ORDERED: CYAN10002 IM (22:17)
--- NOTE | 2017-06-01 22:18 | PN ---
DATE: 05/31/2017 This is a late entry for 05/31/2017 and covers elements not covered in my initial note of 05/31/2017. SUBJECTIVE: The patient was staffed at a treatment team meeting with the entire team the morning of 05/31/2017. She remains somewhat paranoid, psychotic, refuses white pills because she states they are poison and as I met with her the evening of 05/31/2017, she was convinced Seroquel was poison. She talks about having 31 children and then 300 children, something about burning the blending the bodies. REVIEW OF SYSTEMS: Ambulation impaired. No CV, , pulmonary, eye, ENT system symptoms on review. Reliability poor. MENTAL STATUS EXAM: Oriented to herself and situation. Speech is coherent, abstraction fair, computation impaired, language function intact. Attention span short. No active suicidal or homicidal ideation. LABORATORY DATA: Reviewed. IMPRESSION: Unchanged from initial note. PLAN: Valproic acid level is 47 on Depakote 500 in the morning and 750 at night, we will increase to 750 morning and 1000 at night. Check CBC, CMP, valproic acid level in 3 days. Maintain Seroquel at current dosage, Zyprexa and Ativan p.r.n. Adjust further as clinically indicated. If psychotic symptoms persist, may change Seroquel to Risperdal. MAN Kranthi HOWARD MD DR: MOISES/tamera JOB#: [id number] / [id number]
[2017-06-02 06:27] VITALS: BP 131/71
[2017-06-02] MEDS: LEVOTHYROXINE 25 MCG TABLET. PO SCH (06:38)
[2017-06-02] MEDS: POLYVINYL ALCOHOL 1.4% OPHTH SOLUTION 15ML BOTTLE. OU SCH ×4 (08:19→20:22)
[2017-06-02] MEDS: QUEtiapine 50 MG TABLET. PO SCH ×3 (08:19→20:00)
[2017-06-02] MEDS: dilTIAZem HCL 30 MG TABLET PO SCH ×2 (08:20→19:58)
[2017-06-02] MEDS: DIVALPROEX 125 MG CAP.SPRINK PO SCH ×2 (08:21→19:59)
[2017-06-02] MEDS: ASPIRIN 81 MG TAB.CHEW PO SCH (08:21)
[2017-06-02] MEDS: POLYETHYLENE GLYCOL 3350 17 GM PACKET. PO SCH (08:22)
[2017-06-02] MEDS: ALLOPURINOL 100 MG TABLET. PO SCH (08:22)
[2017-06-02] MEDS: SENNOSIDES 8.6 MG TABLET PO SCH ×3 (08:22→20:22)
[2017-06-02] MEDS: risperiDONE 0.5 MG TABLET. PO SCH ×2 (08:22→19:57)
[2017-06-02] MEDS: PRIMIDONE 50 MG TABLET PO SCH ×2 (08:22→19:57)
[2017-06-02] MEDS: QUEtiapine 100 MG TABLET. PO SCH (12:06)
[2017-06-02 16:32] VITALS: BP 119/64
[2017-06-02] MEDS: ATORVASTATIN CALCIUM 20 MG TABLET PO SCH (19:57)
--- NOTE | 2017-06-02 20:44 | PN ---
DATE: 06/01/2017 SUBJECTIVE: This is a late entry 06/01/2017, covers elements not covered in my initial note of 06/01/2017. The patient was seen individually evening of 06/01/2017. The patient has been actively hallucinating having visual hallucinations seeing people that are not there. She is quite labile in her mood, loud, verbally aggressive using racial slurs, and believes food is being poisoned, but she still got a reasonable appetite. She believes she is being fed rat poison and cyanide and that the Seroquel is rat poison. As a nursing staff attempted to administer her psychotropics, she looked to the corner of the room and said "the doctor told me not to take the medication." REVIEW OF SYSTEMS: Ambulation impaired in a wheelchair. No CV, , pulmonary, eye, or ENT system symptoms on review. Reliability is poor due to his psychotic symptoms. MENTAL STATUS EXAM: Oriented to herself and situation. Speech coherent, rapid, and loud at times. Insight limited, judgment marginal, and language function intact. Mood and affect labile and quite psychotic intermittently. LABORATORY DATA: Reviewed. IMPRESSION: Unchanged from initial note. PLAN: Staring it we will reduce the morning Seroquel from 100 mg down to 50 mg for two days and stop it. Maintain the rest of the Seroquel dosage and Depakote. Repeat labs level on the Depakote awaited on 06/03/2017. We will also start Risperdal 0.5 mg twice a day and as we get this to a therapeutic level, we will further taper and stop the Seroquel. Reviewed drug interactions in detail. Risk/benefit ratio favors no further change at this time. MAN Kranthi HOWARD MD DR: MOISES/tamera JOB#: [id number] / [id number]
--- NOTE | 2017-06-02 23:19 | PDOC ---
Exam Darvin Demential Exam: Darvin Note: Please also refer to the separate dictated note~for this date of service dictated separately.~Patient seen individually. Discussed the patient with Nursing staff reviewed the chart.~Reviewed interim history and current functioning. Reviewed vital signs,~Labs/ Radiology~and current medications noted below. Continue current treatment with the changes noted in the dictated addendum note Assessment: Vital Signs: Vital Signs Date Time Temp Pulse Resp B/P (MAP) Pulse Ox O2 Delivery O2 Flow Rate FiO2 06/02/17 19:58 66 119/64 06/02/17 16:32 98.7 16 95 06/02/17 06:27 Room Air I&O Intake and Output 06/02/17 07:00 Intake Total 840 ml Balance 840 ml Intake Oral 840 ml Current Medications: Meds: Current Medications Acetaminophen (Tylenol) 650 mg PRN Q8HRS PRN PO PAIN; Start 05/29/17 at 14:15 Allopurinol (Zyloprim) 100 mg DAILY PO Last administered on 06/02/17 08:22; Start 05/30/17 at 09:00 Aspirin (Children'S Aspirin) 81 mg DAILY PO Last administered on 06/02/17 08: 21; Start 05/30/17 at 09:00 Levothyroxine Sodium (Synthroid) 25 mcg DAILY06 PO Last administered on 06:38; Start 05/30/17 at 06:00 Nystatin (Nystop) 1 naida PRN BID PRN TP REDNESS; Start 05/29/17 at 14:15 Polyethylene Glycol (miraLAX) 17 gm DAILY PO Last administered on 06/02/17 08: 22; Start 05/30/17 at 09:00 Primidone (Mysoline) 50 mg BID PO Last administered on 06/02/17 19:57; Start 05/29/17 at 21:00 Sennosides (Senna) 8.6 mg BID PO Last administered on 06/02/17 08:22; Start at 21:00 Artificial Tears (Artificial Tears) 1 drop TID OU Last administered on 08:19; Start 05/29/17 at 21:00 Diltiazem HCl (Cardizem) 60 mg BID PO Last administered on 06/02/17 19:58; Start 05/29/17 at 21:00 Al Hydroxide/Mg Hydroxide (Mylanta Plus Xs) 15 ml PRN AFTMEALHC PRN PO DYSPEPSIA; Start 05/29/17 at 16:00 Magnesium Hydroxide (Milk Of Magnesia) 2,400 mg PRN QHS PRN PO CONSTIPATION; Start 05/29/17 at 16:00 Lorazepam (Ativan) 0.5 mg PRN Q4HRS PRN PO ANXIETY / AGITATION Last administered on 05/31/17 13:12; Start 05/29/17 at 16:45 Olanzapine (ZyPREXA ZYDIS) 5 mg PRN Q4HRS PRN PO PSYCHOSIS Last administered on 06/01/17 18:37; Start 05/29/17 at 16:45 Divalproex Sodium (Depakote Sprinkles) 500 mg DAILY PO Last administered on 08:58; Start 05/30/17 at 09:00; Stop 05/31/17 at 12:04; Status DC Divalproex Sodium (Depakote Sprinkles) 750 mg QHS PO Last administered on 19:57; Start 05/29/17 at 21:00; Stop 05/31/17 at 12:04; Status DC Quetiapine Fumarate (SEROquel) 150 mg 1700,2100 PO Last administered on 20:00; Start 05/29/17 at 17:00 Quetiapine Fumarate (SEROquel) 100 mg BIDWBKFT/ELINA PO ; Start 05/30/17 at 08:00; Stop 05/30/17 at 08:00; Status DC Pneumococcal Polyvalent Vaccine (Pneumovax 23) 0.5 ml ONCE ONCE VAX IM Last administered on 05/30/17 09:08; Start 05/30/17 at 09:00; Stop 05/30/17 at 09:01; Status DC Quetiapine Fumarate (SEROquel) 100 mg DAILY08 PO Last administered on 12:51; Start 05/30/17 at 08:00; Stop 06/01/17 at 18:41; Status DC Quetiapine Fumarate (SEROquel) 200 mg DAILYWLUN PO Last administered on 12:06; Start 05/30/17 at 12:00 Divalproex Sodium (Depakote Sprinkles) 1,000 mg QHS PO Last administered on 19:59; Start 05/31/17 at 21:00 Divalproex Sodium (Depakote Sprinkles) 750 mg DAILY PO Last administered on 08:21; Start 06/01/17 at 09:00 Atorvastatin Calcium (Lipitor) 20 mg QHS PO Last administered on 06/02/17 19: 57; Start 05/31/17 at 21:00 Cyanocobalamin (Vitamin B-12) 1,000 mcg [id number] IM ; Start 06/01/17 at 09:00 Vitamin D (Vitamin D3) 50,000 unit WEEKLY PO ; Start 06/01/17 at 09:00 Quetiapine Fumarate (SEROquel) 50 mg DAILY08 PO Last administered on 06/02/17 08:19; Start 06/02/17 at 08:00 Risperidone (RisperDAL) 0.5 mg BID PO Last administered on 06/02/17 19:57; Start 06/01/17 at 21:00 Active Scripts Active Reported Lorazepam 0.5 Mg Tablet 1 Tab PO PRN Q4HRS PRN Zyprexa Zydis (Olanzapine) 5 Mg Tab.rapdis 5 Mg PO Q4HRS PRN Olanzapine Inj (Olanzapine) 10 Mg Vial 10 Mg IM PRN Q4HRS PRN Seroquel (Quetiapine Fumarate) 50 Mg Tablet 3 Tab PO BID17,21 Seroquel (Quetiapine Fumarate) 100 Mg Tablet 1 Tab PO BIDWBKFT/ELINA Primidone 50 Mg Tablet 50 Mg PO BID Depakote Sprinkle (Divalproex Sodium) 125 Mg Cap.sprink 750 Mg PO QHS Depakote Sprinkle (Divalproex Sodium) 125 Mg Cap.sprink 500 Mg PO DAILY Nystatin 15 Gm Powder 1 Naida TP BID PRN Diltiazem Hcl Tablet (Diltiazem Hcl) 60 Mg Tablet 60 Mg PO BID Tylenol (Acetaminophen) 325 Mg Tablet 2 Tab PO PRN Q8HRS PRN Artificial Tears Eye Drops (Dextran 70/Hypromellose) 15 Ml Drops 1 Drop EACHEYE TID Zyloprim (Allopurinol) 100 Mg Tablet 100 Mg PO DAILY Synthroid (Levothyroxine Sodium) 25 Mcg Tablet 1 Tab PO DAILY06 Senokot (Sennosides) 8.6 Mg Tablet 1 Tab PO BID Miralax (Polyethylene Glycol 3350) 17 Gm Powd.pack 1 Packet PO DAILY Aspirin 81 Mg Tab.chew 81 Mg PO DAILY Diagnosis: Problems: (1) Dementia (2) Schizoaffective disorder (3) Anxiety disorder (4) Impulse control disorder (5) Mild cognitive disorder CARLA HOWARD MD Jun 02, 2017 23:19
[2017-06-03] MEDS: LEVOTHYROXINE 25 MCG TABLET. PO SCH (05:32)
[2017-06-03 06:20] VITALS: BP 159/69
[2017-06-03 07:51] LABS: BASO % 0 % (0-3); EOS # 0.1 x10^3/uL (0.0-0.7); EOS % 1 % (0-3); HEMATOCRIT 35.9 % (36.0-47.0); HEMOGLOBIN 11.7 g/dL (12.0-15.5); LYMPH # 2.1 x10^3/uL (1.0-4.8); LYMPH % 30 % (24-48); MEAN CORPUSCULAR HEMOGLOBIN 30 pg (25-35); MEAN CORPUSCULAR HGB CONC 33 g/dL (31-37); MEAN CORPUSCULAR VOLUME 91 fL (79-100); MONO # 0.4 x10^3/uL (0.0-1.1); MONO % 6 % (0-9); NEUT # 4.4 x10^3uL (1.8-7.7); NEUT % 63 % (31-73); PLATELET COUNT 224 x10^3/uL (140-400); RED BLOOD COUNT 3.93 x10^6/uL (3.50-5.40); RED CELL DISTRIBUTION WIDTH 16.2 % (11.5-14.5)
[2017-06-03] MEDS: QUEtiapine 50 MG TABLET. PO SCH ×4 (07:55→20:53)
[2017-06-03] MEDS: dilTIAZem HCL 30 MG TABLET PO SCH ×2 (07:56→20:55)
[2017-06-03] MEDS: ASPIRIN 81 MG TAB.CHEW PO SCH (07:56)
[2017-06-03] MEDS: risperiDONE 0.5 MG TABLET. PO SCH ×2 (07:58→20:53)
[2017-06-03] MEDS: PRIMIDONE 50 MG TABLET PO SCH ×2 (07:58→20:53)
[2017-06-03] MEDS: DIVALPROEX 125 MG CAP.SPRINK PO SCH (07:58)
[2017-06-03] MEDS: ALLOPURINOL 100 MG TABLET. PO SCH (07:59)
[2017-06-03 08:09] LABS: ALBUMIN/GLOBULIN RATIO 0.9 (1.0-1.7); ALK PHOS 96 U/L (46-116); ALT (SGPT) 7 U/L (14-59); ANION GAP 7 (6-14); AST (SGOT) 7 U/L (15-37); BLOOD UREA NITROGEN 33 mg/dL (7-20); BUN/CREATININE RATIO 28 (6-20); CALCIUM 9.6 mg/dL (8.5-10.1); CARBON DIOXIDE 29 mmol/L (21-32); CHLORIDE 106 mmol/L (98-107); CREATININE 1.2 mg/dL (0.6-1.0); GFR 44.8; GLUCOSE 101 mg/dL (70-99); MAGNESIUM 2.7 mg/dL (1.8-2.4); POTASSIUM 4.5 mmol/L (3.5-5.1); SODIUM 142 mmol/L (136-145); TOTAL BILIRUBIN 0.3 mg/dL (0.2-1.0); TOTAL PROTEIN 6.5 g/dL (6.4-8.2)
[2017-06-03 08:11] LABS: VAL ACID 129 mcg/mL (50-100)
[2017-06-03] MEDS: POLYVINYL ALCOHOL 1.4% OPHTH SOLUTION 15ML BOTTLE. OU SCH ×3 (09:00→20:52)
[2017-06-03] MEDS: POLYETHYLENE GLYCOL 3350 17 GM PACKET. PO SCH (09:00)
[2017-06-03] MEDS: SENNOSIDES 8.6 MG TABLET PO SCH ×2 (09:00→20:55)
[2017-06-03] MEDS: QUEtiapine 100 MG TABLET. PO SCH (13:06)
[2017-06-03 17:33] VITALS: BP 67/54
[2017-06-03 17:36] VITALS: BP 106/76
--- NOTE | 2017-06-03 20:26 | PDOC ---
Exam Dravin Demential Exam: Darvin Note: Please also refer to the separate dictated note~for this date of service dictated separately.~Patient seen individually. Discussed the patient with Nursing staff reviewed the chart.~Reviewed interim history and current functioning. Reviewed vital signs,~Labs/ Radiology~and current medications noted below. Continue current treatment with the changes noted in the dictated addendum note Assessment: Vital Signs: Vital Signs Date Time Temp Pulse Resp B/P (MAP) Pulse Ox O2 Delivery O2 Flow Rate FiO2 06/03/17 17:36 98.6 72 16 106/76 (86) 98 06/02/17 06:27 Room Air I&O Intake and Output 06/03/17 07:00 Intake Total 1300 ml Balance 1300 ml Intake Oral 1300 ml Labs: Laboratory Tests Test 06/03/17 07:20 White Blood Count 7.0 x10^3/uL (4.0-11.0) Red Blood Count 3.93 x10^6/uL (3.50-5.40) Hemoglobin 11.7 g/dL (12.0-15.5) L Hematocrit 35.9 % (36.0-47.0) L Mean Corpuscular Volume 91 fL (79-100) Mean Corpuscular Hemoglobin 30 pg (25-35) Mean Corpuscular Hemoglobin Concent 33 g/dL (31-37) Red Cell Distribution Width 16.2 % (11.5-14.5) H Platelet Count 224 x10^3/uL (140-400) Neutrophils (%) (Auto) 63 % (31-73) Lymphocytes (%) (Auto) 30 % (24-48) Monocytes (%) (Auto) 6 % (0-9) Eosinophils (%) (Auto) 1 % (0-3) Basophils (%) (Auto) 0 % (0-3) Neutrophils # (Auto) 4.4 x10^3uL (1.8-7.7) Lymphocytes # (Auto) 2.1 x10^3/uL (1.0-4.8) Monocytes # (Auto) 0.4 x10^3/uL (0.0-1.1) Eosinophils # (Auto) 0.1 x10^3/uL (0.0-0.7) Basophils # (Auto) 0.0 x10^3/uL (0.0-0.2) Sodium Level 142 mmol/L (136-145) Potassium Level 4.5 mmol/L (3.5-5.1) Chloride Level 106 mmol/L (98-107) Carbon Dioxide Level 29 mmol/L (21-32) Anion Gap 7 (6-14) Blood Urea Nitrogen 33 mg/dL (7-20) H Creatinine 1.2 mg/dL (0.6-1.0) H Estimated GFR (Cockcroft-Gault) 44.8 BUN/Creatinine Ratio 28 (6-20) H Glucose Level 101 mg/dL (70-99) H Calcium Level 9.6 mg/dL (8.5-10.1) Magnesium Level 2.7 mg/dL (1.8-2.4) H Total Bilirubin 0.3 mg/dL (0.2-1.0) Aspartate Amino Transferase (AST) 7 U/L (15-37) L Alanine Aminotransferase (ALT) 7 U/L (14-59) L Alkaline Phosphatase 96 U/L (46-116) Total Protein 6.5 g/dL (6.4-8.2) Albumin 3.0 g/dL (3.4-5.0) L Albumin/Globulin Ratio 0.9 (1.0-1.7) L Valproic Acid Level 129 mcg/mL (50-100) H Valproic Acid Last Dose Date 06/02/17 Valproic Acid Last Dose Time 2100 Current Medications: Meds: Current Medications Acetaminophen (Tylenol) 650 mg PRN Q8HRS PRN PO PAIN; Start 05/29/17 at 14:15 Allopurinol (Zyloprim) 100 mg DAILY PO Last administered on 06/03/17 07:59; Start 05/30/17 at 09:00 Aspirin (Children'S Aspirin) 81 mg DAILY PO Last administered on 06/03/17 07: 56; Start 05/30/17 at 09:00 Levothyroxine Sodium (Synthroid) 25 mcg DAILY06 PO Last administered on 05:32; Start 05/30/17 at 06:00 Nystatin (Nystop) 1 naida PRN BID PRN TP REDNESS; Start 05/29/17 at 14:15 Polyethylene Glycol (miraLAX) 17 gm DAILY PO Last administered on 06/02/17 08: 22; Start 05/30/17 at 09:00 Primidone (Mysoline) 50 mg BID PO Last administered on 06/03/17 07:58; Start 05/29/17 at 21:00 Sennosides (Senna) 8.6 mg BID PO Last administered on 06/02/17 08:22; Start at 21:00 Artificial Tears (Artificial Tears) 1 drop TID OU Last administered on 08:19; Start 05/29/17 at 21:00 Diltiazem HCl (Cardizem) 60 mg BID PO Last administered on 06/03/17 07:56; Start 05/29/17 at 21:00 Al Hydroxide/Mg Hydroxide (Mylanta Plus Xs) 15 ml PRN AFTMEALHC PRN PO DYSPEPSIA; Start 05/29/17 at 16:00 Magnesium Hydroxide (Milk Of Magnesia) 2,400 mg PRN QHS PRN PO CONSTIPATION; Start 05/29/17 at 16:00 Lorazepam (Ativan) 0.5 mg PRN Q4HRS PRN PO ANXIETY / AGITATION Last administered on 05/31/17 13:12; Start 05/29/17 at 16:45 Olanzapine (ZyPREXA ZYDIS) 5 mg PRN Q4HRS PRN PO PSYCHOSIS Last administered on 06/01/17 18:37; Start 05/29/17 at 16:45 Divalproex Sodium (Depakote Sprinkles) 500 mg DAILY PO Last administered on 08:58; Start 05/30/17 at 09:00; Stop 05/31/17 at 12:04; Status DC Divalproex Sodium (Depakote Sprinkles) 750 mg QHS PO Last administered on 19:57; Start 05/29/17 at 21:00; Stop 05/31/17 at 12:04; Status DC Quetiapine Fumarate (SEROquel) 150 mg 1700,2100 PO Last administered on 17:10; Start 05/29/17 at 17:00 Quetiapine Fumarate (SEROquel) 100 mg BIDWBKFT/ELINA PO ; Start 05/30/17 at 08:00; Stop 05/30/17 at 08:00; Status DC Pneumococcal Polyvalent Vaccine (Pneumovax 23) 0.5 ml ONCE ONCE VAX IM Last administered on 05/30/17 09:08; Start 05/30/17 at 09:00; Stop 05/30/17 at 09:01; Status DC Quetiapine Fumarate (SEROquel) 100 mg DAILY08 PO Last administered on 12:51; Start 05/30/17 at 08:00; Stop 06/01/17 at 18:41; Status DC Quetiapine Fumarate (SEROquel) 200 mg DAILYWLUN PO Last administered on 13:06; Start 05/30/17 at 12:00; Stop 06/03/17 at 19:21; Status DC Divalproex Sodium (Depakote Sprinkles) 1,000 mg QHS PO Last administered on 19:59; Start 05/31/17 at 21:00; Stop 06/03/17 at 09:51; Status DC Divalproex Sodium (Depakote Sprinkles) 750 mg DAILY PO Last administered on 07:58; Start 06/01/17 at 09:00; Stop 06/03/17 at 09:51; Status DC Atorvastatin Calcium (Lipitor) 20 mg QHS PO Last administered on 06/02/17 19: 57; Start 05/31/17 at 21:00 Cyanocobalamin (Vitamin B-12) 1,000 mcg [id number] IM ; Start 06/01/17 at 09:00 Vitamin D (Vitamin D3) 50,000 unit WEEKLY PO ; Start 06/01/17 at 09:00 Quetiapine Fumarate (SEROquel) 50 mg DAILY08 PO Last administered on 06/02/17 08:19; Start 06/02/17 at 08:00; Stop 06/03/17 at 19:22; Status DC Risperidone (RisperDAL) 0.5 mg BID PO Last administered on 06/03/17 07:58; Start 06/01/17 at 21:00 Divalproex Sodium (Depakote Sprinkles) 500 mg 1X ONCE PO ; Start 06/03/17 at 21 :00; Stop 06/03/17 at 21:01 Divalproex Sodium (Depakote Sprinkles) 500 mg DAILY PO ; Start 06/04/17 at 09:00 Divalproex Sodium (Depakote Sprinkles) 750 mg HS PO ; Start 06/04/17 at 21:00 Quetiapine Fumarate (SEROquel) 100 mg DAILYWLUN PO ; Start 06/04/17 at 12:00; Stop 06/05/17 at 12:01 Active Scripts Active Reported Lorazepam 0.5 Mg Tablet 1 Tab PO PRN Q4HRS PRN Zyprexa Zydis (Olanzapine) 5 Mg Tab.rapdis 5 Mg PO Q4HRS PRN Olanzapine Inj (Olanzapine) 10 Mg Vial 10 Mg IM PRN Q4HRS PRN Seroquel (Quetiapine Fumarate) 50 Mg Tablet 3 Tab PO BID17,21 Seroquel (Quetiapine Fumarate) 100 Mg Tablet 1 Tab PO BIDWBKFT/LEINA Primidone 50 Mg Tablet 50 Mg PO BID Depakote Sprinkle (Divalproex Sodium) 125 Mg Cap.sprink 750 Mg PO QHS Depakote Sprinkle (Divalproex Sodium) 125 Mg Cap.sprink 500 Mg PO DAILY Nystatin 15 Gm Powder 1 Naida TP BID PRN Diltiazem Hcl Tablet (Diltiazem Hcl) 60 Mg Tablet 60 Mg PO BID Tylenol (Acetaminophen) 325 Mg Tablet 2 Tab PO PRN Q8HRS PRN Artificial Tears Eye Drops (Dextran 70/Hypromellose) 15 Ml Drops 1 Drop EACHEYE TID Zyloprim (Allopurinol) 100 Mg Tablet 100 Mg PO DAILY Synthroid (Levothyroxine Sodium) 25 Mcg Tablet 1 Tab PO DAILY06 Senokot (Sennosides) 8.6 Mg Tablet 1 Tab PO BID Miralax (Polyethylene Glycol 3350) 17 Gm Powd.pack 1 Packet PO DAILY Aspirin 81 Mg Tab.chew 81 Mg PO DAILY Diagnosis: Problems: (1) Dementia (2) Schizoaffective disorder (3) Anxiety disorder (4) Impulse control disorder (5) Mild cognitive disorder CARLA HOWARD MD Jun 03, 2017 20:26
[2017-06-03] MEDS: ATORVASTATIN CALCIUM 20 MG TABLET PO SCH (20:55)
[2017-06-03] MEDS ORDERED: DIVALPROEX 125 MG CAP.SPRINK PO ONE (21:00)
--- NOTE | 2017-06-03 22:02 | PN ---
DATE: 06/02/2017 I met with the patient evening of 06/02/2017. Per nursing report, the patient remains somewhat paranoid, but has had a better day, less labile, less aggressive. REVIEW OF SYSTEMS: Ambulation impaired. No CV, , pulmonary, eye, ENT system symptoms on review, lability poor. MENTAL STATUS EXAM: Oriented to herself and situation. Speech is coherent, less pressured. Abstraction fair, computation impaired, language function intact, attention span short. Mood and affect less labile. LABORATORY DATA: Reviewed. IMPRESSION: Unchanged from initial note. PLAN: Check valproic acid level in the morning of 06/03/2017 and then adjust the Depakote. Last valproic acid level was 47, continue Risperdal, Seroquel and we will go ahead and increase the Risperdal by 0.25 mg daily and then reduce the Seroquel further. MAN Kranthi HOWARD MD DR: MOISES/tamera JOB#: [id number] / [id number]
[2017-06-04] MEDS: LEVOTHYROXINE 25 MCG TABLET. PO SCH (05:12)
[2017-06-04 06:28] VITALS: BP 144/80
[2017-06-04] MEDS: ASPIRIN 81 MG TAB.CHEW PO SCH (08:19)
[2017-06-04] MEDS: dilTIAZem HCL 30 MG TABLET PO SCH ×2 (08:19→20:18)
[2017-06-04] MEDS: DIVALPROEX 125 MG CAP.SPRINK PO SCH ×2 (08:20→20:21)
[2017-06-04] MEDS: PRIMIDONE 50 MG TABLET PO SCH ×2 (08:20→20:18)
[2017-06-04] MEDS: risperiDONE 0.5 MG TABLET. PO SCH (08:20)
[2017-06-04] MEDS: ALLOPURINOL 100 MG TABLET. PO SCH (08:21)
[2017-06-04] MEDS: POLYETHYLENE GLYCOL 3350 17 GM PACKET. PO SCH (09:00)
[2017-06-04] MEDS: SENNOSIDES 8.6 MG TABLET PO SCH ×2 (09:00→20:17)
[2017-06-04] MEDS: POLYVINYL ALCOHOL 1.4% OPHTH SOLUTION 15ML BOTTLE. OU SCH ×3 (09:00→20:19)
[2017-06-04] MEDS: QUEtiapine 100 MG TABLET. PO SCH (12:33)
[2017-06-04 16:58] VITALS: BP 146/79
[2017-06-04] MEDS: QUEtiapine 50 MG TABLET. PO SCH ×2 (17:14→20:17)
[2017-06-04] MEDS: ATORVASTATIN CALCIUM 20 MG TABLET PO SCH (20:18)
[2017-06-04] MEDS: risperiDONE 1 MG TABLET. PO SCH (20:20)
--- NOTE | 2017-06-04 20:25 | PDOC ---
Exam Darvin Demential Exam: Darvin Note: Please also refer to the separate dictated note~for this date of service dictated separately.~Patient seen individually. Discussed the patient with Nursing staff reviewed the chart.~Reviewed interim history and current functioning. Reviewed vital signs,~Labs/ Radiology~and current medications noted below. Continue current treatment with the changes noted in the dictated addendum note Assessment: Vital Signs: Vital Signs Date Time Temp Pulse Resp B/P (MAP) Pulse Ox O2 Delivery O2 Flow Rate FiO2 06/04/17 20:18 79 146/79 06/04/17 16:58 98.1 18 99 06/02/17 06:27 Room Air I&O Intake and Output 06/04/17 07:00 Intake Total 1460 ml Balance 1460 ml Intake Oral 1460 ml # Voids 3 Current Medications: Meds: Current Medications Acetaminophen (Tylenol) 650 mg PRN Q8HRS PRN PO PAIN; Start 05/29/17 at 14:15 Allopurinol (Zyloprim) 100 mg DAILY PO Last administered on 06/04/17 08:21; Start 05/30/17 at 09:00 Aspirin (Children'S Aspirin) 81 mg DAILY PO Last administered on 06/04/17 08: 19; Start 05/30/17 at 09:00 Levothyroxine Sodium (Synthroid) 25 mcg DAILY06 PO Last administered on 05:12; Start 05/30/17 at 06:00 Nystatin (Nystop) 1 naida PRN BID PRN TP REDNESS; Start 05/29/17 at 14:15 Polyethylene Glycol (miraLAX) 17 gm DAILY PO Last administered on 06/02/17 08: 22; Start 05/30/17 at 09:00 Primidone (Mysoline) 50 mg BID PO Last administered on 06/04/17 20:18; Start 05/29/17 at 21:00 Sennosides (Senna) 8.6 mg BID PO Last administered on 06/04/17 20:17; Start at 21:00 Artificial Tears (Artificial Tears) 1 drop TID OU Last administered on 20:19; Start 05/29/17 at 21:00 Diltiazem HCl (Cardizem) 60 mg BID PO Last administered on 06/04/17 20:18; Start 05/29/17 at 21:00 Al Hydroxide/Mg Hydroxide (Mylanta Plus Xs) 15 ml PRN AFTMEALHC PRN PO DYSPEPSIA; Start 05/29/17 at 16:00 Magnesium Hydroxide (Milk Of Magnesia) 2,400 mg PRN QHS PRN PO CONSTIPATION; Start 05/29/17 at 16:00 Lorazepam (Ativan) 0.5 mg PRN Q4HRS PRN PO ANXIETY / AGITATION Last administered on 05/31/17 13:12; Start 05/29/17 at 16:45 Olanzapine (ZyPREXA ZYDIS) 5 mg PRN Q4HRS PRN PO PSYCHOSIS Last administered on 06/01/17 18:37; Start 05/29/17 at 16:45 Divalproex Sodium (Depakote Sprinkles) 500 mg DAILY PO Last administered on 08:58; Start 05/30/17 at 09:00; Stop 05/31/17 at 12:04; Status DC Divalproex Sodium (Depakote Sprinkles) 750 mg QHS PO Last administered on 19:57; Start 05/29/17 at 21:00; Stop 05/31/17 at 12:04; Status DC Quetiapine Fumarate (SEROquel) 150 mg 1700,2100 PO Last administered on 20:17; Start 05/29/17 at 17:00 Quetiapine Fumarate (SEROquel) 100 mg BIDWBKFT/ELINA PO ; Start 05/30/17 at 08:00; Stop 05/30/17 at 08:00; Status DC Pneumococcal Polyvalent Vaccine (Pneumovax 23) 0.5 ml ONCE ONCE VAX IM Last administered on 05/30/17 09:08; Start 05/30/17 at 09:00; Stop 05/30/17 at 09:01; Status DC Quetiapine Fumarate (SEROquel) 100 mg DAILY08 PO Last administered on 12:51; Start 05/30/17 at 08:00; Stop 06/01/17 at 18:41; Status DC Quetiapine Fumarate (SEROquel) 200 mg DAILYWLUN PO Last administered on 13:06; Start 05/30/17 at 12:00; Stop 06/03/17 at 19:21; Status DC Divalproex Sodium (Depakote Sprinkles) 1,000 mg QHS PO Last administered on 19:59; Start 05/31/17 at 21:00; Stop 06/03/17 at 09:51; Status DC Divalproex Sodium (Depakote Sprinkles) 750 mg DAILY PO Last administered on 07:58; Start 06/01/17 at 09:00; Stop 06/03/17 at 09:51; Status DC Atorvastatin Calcium (Lipitor) 20 mg QHS PO Last administered on 06/04/17 20: 18; Start 05/31/17 at 21:00 Cyanocobalamin (Vitamin B-12) 1,000 mcg [id number] IM ; Start 06/01/17 at 09:00 Vitamin D (Vitamin D3) 50,000 unit WEEKLY PO ; Start 06/01/17 at 09:00 Quetiapine Fumarate (SEROquel) 50 mg DAILY08 PO Last administered on 06/02/17 08:19; Start 06/02/17 at 08:00; Stop 06/03/17 at 19:22; Status DC Risperidone (RisperDAL) 0.5 mg BID PO Last administered on 06/04/17 08:20; Start 06/01/17 at 21:00; Stop 06/04/17 at 17:55; Status DC Divalproex Sodium (Depakote Sprinkles) 500 mg 1X ONCE PO Last administered on 06/03/17 20:58; Start 06/03/17 at 21:00; Stop 06/03/17 at 21:01; Status DC Divalproex Sodium (Depakote Sprinkles) 500 mg DAILY PO Last administered on 08:20; Start 06/04/17 at 09:00 Divalproex Sodium (Depakote Sprinkles) 750 mg HS PO Last administered on 20:21; Start 06/04/17 at 21:00 Quetiapine Fumarate (SEROquel) 100 mg DAILYWLUN PO Last administered on 12:33; Start 06/04/17 at 12:00; Stop 06/05/17 at 12:01 Risperidone (RisperDAL) 0.5 mg DAILY PO ; Start 06/05/17 at 09:00 Risperidone (RisperDAL) 1 mg HS PO Last administered on 06/04/17t 20:20; Start 06/04/17 at 21:00 Active Scripts Active Reported Lorazepam 0.5 Mg Tablet 1 Tab PO PRN Q4HRS PRN Zyprexa Zydis (Olanzapine) 5 Mg Tab.rapdis 5 Mg PO Q4HRS PRN Olanzapine Inj (Olanzapine) 10 Mg Vial 10 Mg IM PRN Q4HRS PRN Seroquel (Quetiapine Fumarate) 50 Mg Tablet 3 Tab PO BID17,21 Seroquel (Quetiapine Fumarate) 100 Mg Tablet 1 Tab PO BIDWBKFT/ELINA Primidone 50 Mg Tablet 50 Mg PO BID Depakote Sprinkle (Divalproex Sodium) 125 Mg Cap.sprink 750 Mg PO QHS Depakote Sprinkle (Divalproex Sodium) 125 Mg Cap.sprink 500 Mg PO DAILY Nystatin 15 Gm Powder 1 Naida TP BID PRN Diltiazem Hcl Tablet (Diltiazem Hcl) 60 Mg Tablet 60 Mg PO BID Tylenol (Acetaminophen) 325 Mg Tablet 2 Tab PO PRN Q8HRS PRN Artificial Tears Eye Drops (Dextran 70/Hypromellose) 15 Ml Drops 1 Drop EACHEYE TID Zyloprim (Allopurinol) 100 Mg Tablet 100 Mg PO DAILY Synthroid (Levothyroxine Sodium) 25 Mcg Tablet 1 Tab PO DAILY06 Senokot (Sennosides) 8.6 Mg Tablet 1 Tab PO BID Miralax (Polyethylene Glycol 3350) 17 Gm Powd.pack 1 Packet PO DAILY Aspirin 81 Mg Tab.chew 81 Mg PO DAILY Diagnosis: Problems: (1) Dementia (2) Schizoaffective disorder (3) Anxiety disorder (4) Impulse control disorder (5) Mild cognitive disorder CARLA HOWARD MD Jun 04, 2017 20:25
[2017-06-04] MEDS: ACETAMINOPHEN 325 MG TABLET PO PRN (20:49)
[2017-06-05 05:36] VITALS: BP 139/92
[2017-06-05] MEDS: LEVOTHYROXINE 25 MCG TABLET. PO SCH (06:03)
[2017-06-05] MEDS: ALLOPURINOL 100 MG TABLET. PO SCH (08:21)
[2017-06-05] MEDS: POLYETHYLENE GLYCOL 3350 17 GM PACKET. PO SCH (08:22)
[2017-06-05] MEDS: dilTIAZem HCL 30 MG TABLET PO SCH ×2 (08:22→19:29)
[2017-06-05] MEDS: ASPIRIN 81 MG TAB.CHEW PO SCH (08:22)
[2017-06-05] MEDS: PRIMIDONE 50 MG TABLET PO SCH ×2 (08:22→19:29)
[2017-06-05] MEDS: DIVALPROEX 125 MG CAP.SPRINK PO SCH ×2 (08:22→19:28)
[2017-06-05] MEDS: SENNOSIDES 8.6 MG TABLET PO SCH ×2 (08:22→19:28)
[2017-06-05] MEDS: risperiDONE 0.5 MG TABLET. PO SCH (08:24)
[2017-06-05] MEDS: POLYVINYL ALCOHOL 1.4% OPHTH SOLUTION 15ML BOTTLE. OU SCH ×3 (08:24→19:34)
--- NOTE | 2017-06-05 10:24 | PN ---
DATE: 06/03/2017 PSYCHIATRIC PROGRESS NOTE This is a late entry of 06/03/2017 covers elements not covered in my initial note. SUBJECTIVE: I met with the patient evening of 06/03/2017. The patient slept 7-3/4 hours previous evening, still remains psychotic, believes Seroquel is rat poison, less resistive to care, less demanding. Nursing staff states she feels clearer. I have reviewed about 50-70 pages of records from [facility] where she was inpatient on the Psychiatry Service. She is being treated on Clozaril in the past and during that hospitalization was placed on Seroquel. REVIEW OF SYSTEMS: Ambulation impaired, in a wheelchair. No CV, , pulmonary, eye, ENT system symptoms on review. MENTAL STATUS EXAM: Oriented to herself and situation. Speech coherent, less pressured. Abstraction fair, computation impaired, language function intact, attention span short. Mood and affect remain somewhat labile, but less so than before. LABORATORY DATA: Reviewed. IMPRESSION: Unchanged from initial note. PLAN: Maintain Risperdal 0.5 mg b.i.d. Seroquel is at 200 mg at noon. We will reduce this to 100 mg for 2 days and stop the noon dosage, continue 150 mg at 1700 and 2100 and then gradually increase the Risperdal and taper off the Seroquel. Repeat valproic acid level since earlier level was at 129 and we will drop the dosage lower. Reviewed drug interactions, risk, benefit ratio for favors, no further change at this time. CARLA HOWARD MD DR: MOISES/tamera JOB#: [id number] / [id number]
[2017-06-05] MEDS: QUEtiapine 100 MG TABLET. PO SCH (14:24)
[2017-06-05 16:34] VITALS: BP 159/76
[2017-06-05] MEDS: QUEtiapine 50 MG TABLET. PO SCH ×2 (17:24→19:28)
[2017-06-05] MEDS: risperiDONE 1 MG TABLET. PO SCH (19:29)
[2017-06-05] MEDS: ATORVASTATIN CALCIUM 20 MG TABLET PO SCH (19:29)
--- NOTE | 2017-06-05 20:01 | PDOC ---
Exam Darvin Demential Exam: Darvin Note: Please also refer to the separate dictated note~for this date of service dictated separately.~Patient seen individually. Discussed the patient with Nursing staff reviewed the chart.~Reviewed interim history and current functioning. Reviewed vital signs,~Labs/ Radiology~and current medications noted below. Continue current treatment with the changes noted in the dictated addendum note Assessment: Vital Signs: Vital Signs Date Time Temp Pulse Resp B/P (MAP) Pulse Ox O2 Delivery O2 Flow Rate FiO2 06/05/17 19:29 72 159/76 06/05/17 16:34 98.0 18 100 06/02/17 06:27 Room Air I&O Intake and Output 06/05/17 07:00 Intake Total 600 ml Balance 600 ml Intake Oral 600 ml Current Medications: Meds: Current Medications Acetaminophen (Tylenol) 650 mg PRN Q8HRS PRN PO PAIN Last administered on 20:49; Start 05/29/17 at 14:15 Allopurinol (Zyloprim) 100 mg DAILY PO Last administered on 06/05/17 08:21; Start 05/30/17 at 09:00 Aspirin (Children'S Aspirin) 81 mg DAILY PO Last administered on 06/05/17 08: 22; Start 05/30/17 at 09:00 Levothyroxine Sodium (Synthroid) 25 mcg DAILY06 PO Last administered on 06:03; Start 05/30/17 at 06:00 Nystatin (Nystop) 1 naida PRN BID PRN TP REDNESS; Start 05/29/17 at 14:15 Polyethylene Glycol (miraLAX) 17 gm DAILY PO Last administered on 06/05/17 08: 22; Start 05/30/17 at 09:00 Primidone (Mysoline) 50 mg BID PO Last administered on 06/05/17 19:29; Start 05/29/17 at 21:00 Sennosides (Senna) 8.6 mg BID PO Last administered on 06/05/17 19:28; Start at 21:00 Artificial Tears (Artificial Tears) 1 drop TID OU Last administered on 19:34; Start 05/29/17 at 21:00 Diltiazem HCl (Cardizem) 60 mg BID PO Last administered on 06/05/17 19:29; Start 05/29/17 at 21:00 Al Hydroxide/Mg Hydroxide (Mylanta Plus Xs) 15 ml PRN AFTMEALHC PRN PO DYSPEPSIA; Start 05/29/17 at 16:00 Magnesium Hydroxide (Milk Of Magnesia) 2,400 mg PRN QHS PRN PO CONSTIPATION; Start 05/29/17 at 16:00 Lorazepam (Ativan) 0.5 mg PRN Q4HRS PRN PO ANXIETY / AGITATION Last administered on 05/31/17 13:12; Start 05/29/17 at 16:45 Olanzapine (ZyPREXA ZYDIS) 5 mg PRN Q4HRS PRN PO PSYCHOSIS Last administered on 06/01/17 18:37; Start 05/29/17 at 16:45 Divalproex Sodium (Depakote Sprinkles) 500 mg DAILY PO Last administered on 08:58; Start 05/30/17 at 09:00; Stop 05/31/17 at 12:04; Status DC Divalproex Sodium (Depakote Sprinkles) 750 mg QHS PO Last administered on 19:57; Start 05/29/17 at 21:00; Stop 05/31/17 at 12:04; Status DC Quetiapine Fumarate (SEROquel) 150 mg 1700,2100 PO Last administered on 19:28; Start 05/29/17 at 17:00 Quetiapine Fumarate (SEROquel) 100 mg BIDWBKFT/ELINA PO ; Start 05/30/17 at 08:00; Stop 05/30/17 at 08:00; Status DC Pneumococcal Polyvalent Vaccine (Pneumovax 23) 0.5 ml ONCE ONCE VAX IM Last administered on 05/30/17 09:08; Start 05/30/17 at 09:00; Stop 05/30/17 at 09:01; Status DC Quetiapine Fumarate (SEROquel) 100 mg DAILY08 PO Last administered on 12:51; Start 05/30/17 at 08:00; Stop 06/01/17 at 18:41; Status DC Quetiapine Fumarate (SEROquel) 200 mg DAILYWLUN PO Last administered on 13:06; Start 05/30/17 at 12:00; Stop 06/03/17 at 19:21; Status DC Divalproex Sodium (Depakote Sprinkles) 1,000 mg QHS PO Last administered on 19:59; Start 05/31/17 at 21:00; Stop 06/03/17 at 09:51; Status DC Divalproex Sodium (Depakote Sprinkles) 750 mg DAILY PO Last administered on 07:58; Start 06/01/17 at 09:00; Stop 06/03/17 at 09:51; Status DC Atorvastatin Calcium (Lipitor) 20 mg QHS PO Last administered on 06/05/17 19: 29; Start 05/31/17 at 21:00 Cyanocobalamin (Vitamin B-12) 1,000 mcg [id number] IM ; Start 06/01/17 at 09:00 Vitamin D (Vitamin D3) 50,000 unit WEEKLY PO ; Start 06/01/17 at 09:00 Quetiapine Fumarate (SEROquel) 50 mg DAILY08 PO Last administered on 06/02/17 08:19; Start 06/02/17 at 08:00; Stop 06/03/17 at 19:22; Status DC Risperidone (RisperDAL) 0.5 mg BID PO Last administered on 06/04/17 08:20; Start 06/01/17 at 21:00; Stop 06/04/17 at 17:55; Status DC Divalproex Sodium (Depakote Sprinkles) 500 mg 1X ONCE PO Last administered on 06/03/17 20:58; Start 06/03/17 at 21:00; Stop 06/03/17 at 21:01; Status DC Divalproex Sodium (Depakote Sprinkles) 500 mg DAILY PO Last administered on 08:22; Start 06/04/17 at 09:00 Divalproex Sodium (Depakote Sprinkles) 750 mg HS PO Last administered on 19:28; Start 06/04/17 at 21:00 Quetiapine Fumarate (SEROquel) 100 mg DAILYWLUN PO Last administered on 14:24; Start 06/04/17 at 12:00; Stop 06/05/17 at 12:01; Status DC Risperidone (RisperDAL) 0.5 mg DAILY PO Last administered on 06/05/17 08:24; Start 06/05/17 at 09:00 Risperidone (RisperDAL) 1 mg HS PO Last administered on 06/05/17 19:29; Start 06/04/17 at 21:00 Active Scripts Active Reported Lorazepam 0.5 Mg Tablet 1 Tab PO PRN Q4HRS PRN Zyprexa Zydis (Olanzapine) 5 Mg Tab.rapdis 5 Mg PO Q4HRS PRN Olanzapine Inj (Olanzapine) 10 Mg Vial 10 Mg IM PRN Q4HRS PRN Seroquel (Quetiapine Fumarate) 50 Mg Tablet 3 Tab PO BID17,21 Seroquel (Quetiapine Fumarate) 100 Mg Tablet 1 Tab PO BIDWBKFT/ELINA Primidone 50 Mg Tablet 50 Mg PO BID Depakote Sprinkle (Divalproex Sodium) 125 Mg Cap.sprink 750 Mg PO QHS Depakote Sprinkle (Divalproex Sodium) 125 Mg Cap.sprink 500 Mg PO DAILY Nystatin 15 Gm Powder 1 Naida TP BID PRN Diltiazem Hcl Tablet (Diltiazem Hcl) 60 Mg Tablet 60 Mg PO BID Tylenol (Acetaminophen) 325 Mg Tablet 2 Tab PO PRN Q8HRS PRN Artificial Tears Eye Drops (Dextran 70/Hypromellose) 15 Ml Drops 1 Drop EACHEYE TID Zyloprim (Allopurinol) 100 Mg Tablet 100 Mg PO DAILY Synthroid (Levothyroxine Sodium) 25 Mcg Tablet 1 Tab PO DAILY06 Senokot (Sennosides) 8.6 Mg Tablet 1 Tab PO BID Miralax (Polyethylene Glycol 3350) 17 Gm Powd.pack 1 Packet PO DAILY Aspirin 81 Mg Tab.chew 81 Mg PO DAILY Diagnosis: Problems: (1) Dementia (2) Schizoaffective disorder (3) Anxiety disorder (4) Impulse control disorder (5) Mild cognitive disorder CARLA HOWARD MD Jun 05, 2017 20:01
--- NOTE | 2017-06-06 04:14 | PN ---
DATE: 06/04/2017 This late entry for 06/04/2017 covers elements not covered in my initial note of 06/04/2017. SUBJECTIVE: I met with the patient in the evening of 06/04/2017. The patient remains intermittently psychotic, refuses some of her medications including Synthroid saying it is a rat poison, took it later. She has been delusional per nursing report regarding a banana, had an outburst earlier in the day, threw food on the floor, had to be placed in a separate hallway to reduce stimuli to help her. She thought that [employer] wanted to hurt her. REVIEW OF SYSTEMS: Ambulation impaired, in wheelchair. No CV, , pulmonary, eye, ENT system symptoms on review. MENTAL STATUS EXAM: Oriented to herself and situation. Speech has some latency, coherent. Abstraction fair, computation impaired, language function intact, attention span short. Mood and affect somewhat labile at times. LABORATORY DATA: Reviewed. IMPRESSION: Unchanged from initial note. PLAN: Risperdal is currently 0.5 mg b.i.d. We will increase to 0.5 mg in the morning and 1 mg at night. Continue to gradually taper the Seroquel. Maintain Depakote. We reduced the dosage since the level was 129 on the higher dosage. Repeat level. Adjust further as clinically indicated. MAN Kranthi HOWARD MD DR: MOISES/tamera JOB#: [id number] / [id number]
[2017-06-06] MEDS: LEVOTHYROXINE 25 MCG TABLET. PO SCH (05:34)
[2017-06-06 06:32] VITALS: BP 143/86
[2017-06-06] MEDS: PRIMIDONE 50 MG TABLET PO SCH ×2 (08:33→21:58)
[2017-06-06] MEDS: SENNOSIDES 8.6 MG TABLET PO SCH ×2 (08:35→21:58)
[2017-06-06] MEDS: dilTIAZem HCL 30 MG TABLET PO SCH (08:35)
[2017-06-06] MEDS: DIVALPROEX 125 MG CAP.SPRINK PO SCH ×2 (08:35→21:57)
[2017-06-06] MEDS: risperiDONE 0.5 MG TABLET. PO SCH (08:35)
[2017-06-06] MEDS: ASPIRIN 81 MG TAB.CHEW PO SCH (08:36)
[2017-06-06] MEDS: POLYVINYL ALCOHOL 1.4% OPHTH SOLUTION 15ML BOTTLE. OU SCH ×3 (08:36→21:00)
[2017-06-06] MEDS: POLYETHYLENE GLYCOL 3350 17 GM PACKET. PO SCH (08:36)
[2017-06-06] MEDS: ALLOPURINOL 100 MG TABLET. PO SCH (08:36)
[2017-06-06 16:36] VITALS: BP 162/93
[2017-06-06] MEDS: QUEtiapine 50 MG TABLET. PO SCH ×2 (16:59→21:58)
--- NOTE | 2017-06-06 20:00 | PDOC ---
Exam Darvin Demential Exam: Darvin Note: Please also refer to the separate dictated note~for this date of service dictated separately.~Patient seen individually. Discussed the patient with Nursing staff reviewed the chart.~Reviewed interim history and current functioning. Reviewed vital signs,~Labs/ Radiology~and current medications noted below. Continue current treatment with the changes noted in the dictated addendum note Assessment: Vital Signs: Vital Signs Date Time Temp Pulse Resp B/P (MAP) Pulse Ox O2 Delivery O2 Flow Rate FiO2 06/06/17 16:59 77 162/93 06/06/17 16:36 97.2 20 98 06/02/17 06:27 Room Air I&O Intake and Output 06/06/17 07:00 Intake Total 1660 ml Balance 1660 ml Intake Oral 1660 ml Current Medications: Meds: Current Medications Acetaminophen (Tylenol) 650 mg PRN Q8HRS PRN PO PAIN Last administered on 20:49; Start 05/29/17 at 14:15 Allopurinol (Zyloprim) 100 mg DAILY PO Last administered on 06/06/17 08:36; Start 05/30/17 at 09:00 Aspirin (Children'S Aspirin) 81 mg DAILY PO Last administered on 06/06/17 08: 36; Start 05/30/17 at 09:00 Levothyroxine Sodium (Synthroid) 25 mcg DAILY06 PO Last administered on 05:34; Start 05/30/17 at 06:00 Nystatin (Nystop) 1 naida PRN BID PRN TP REDNESS; Start 05/29/17 at 14:15 Polyethylene Glycol (miraLAX) 17 gm DAILY PO Last administered on 06/06/17 08: 36; Start 05/30/17 at 09:00 Primidone (Mysoline) 50 mg BID PO Last administered on 06/06/17 08:33; Start 05/29/17 at 21:00 Sennosides (Senna) 8.6 mg BID PO Last administered on 06/06/17 08:35; Start at 21:00 Artificial Tears (Artificial Tears) 1 drop TID OU Last administered on 08:36; Start 05/29/17 at 21:00 Diltiazem HCl (Cardizem) 60 mg BID PO Last administered on 06/06/17 08:35; Start 05/29/17 at 21:00; Stop 06/06/17 at 16:16; Status DC Al Hydroxide/Mg Hydroxide (Mylanta Plus Xs) 15 ml PRN AFTMEALHC PRN PO DYSPEPSIA; Start 05/29/17 at 16:00 Magnesium Hydroxide (Milk Of Magnesia) 2,400 mg PRN QHS PRN PO CONSTIPATION; Start 05/29/17 at 16:00 Lorazepam (Ativan) 0.5 mg PRN Q4HRS PRN PO ANXIETY / AGITATION Last administered on 05/31/17 13:12; Start 05/29/17 at 16:45 Olanzapine (ZyPREXA ZYDIS) 5 mg PRN Q4HRS PRN PO PSYCHOSIS Last administered on 06/01/17 18:37; Start 05/29/17 at 16:45 Divalproex Sodium (Depakote Sprinkles) 500 mg DAILY PO Last administered on 08:58; Start 05/30/17 at 09:00; Stop 05/31/17 at 12:04; Status DC Divalproex Sodium (Depakote Sprinkles) 750 mg QHS PO Last administered on 19:57; Start 05/29/17 at 21:00; Stop 05/31/17 at 12:04; Status DC Quetiapine Fumarate (SEROquel) 150 mg 1700,2100 PO Last administered on 16:59; Start 05/29/17 at 17:00 Quetiapine Fumarate (SEROquel) 100 mg BIDWBKFT/ELINA PO ; Start 05/30/17 at 08:00; Stop 05/30/17 at 08:00; Status DC Pneumococcal Polyvalent Vaccine (Pneumovax 23) 0.5 ml ONCE ONCE VAX IM Last administered on 05/30/17 09:08; Start 05/30/17 at 09:00; Stop 05/30/17 at 09:01; Status DC Quetiapine Fumarate (SEROquel) 100 mg DAILY08 PO Last administered on 12:51; Start 05/30/17 at 08:00; Stop 06/01/17 at 18:41; Status DC Quetiapine Fumarate (SEROquel) 200 mg DAILYWLUN PO Last administered on 13:06; Start 05/30/17 at 12:00; Stop 06/03/17 at 19:21; Status DC Divalproex Sodium (Depakote Sprinkles) 1,000 mg QHS PO Last administered on 19:59; Start 05/31/17 at 21:00; Stop 06/03/17 at 09:51; Status DC Divalproex Sodium (Depakote Sprinkles) 750 mg DAILY PO Last administered on 07:58; Start 06/01/17 at 09:00; Stop 06/03/17 at 09:51; Status DC Atorvastatin Calcium (Lipitor) 20 mg QHS PO Last administered on 06/05/17 19: 29; Start 05/31/17 at 21:00 Cyanocobalamin (Vitamin B-12) 1,000 mcg [id number] IM ; Start 06/01/17 at 09:00 Vitamin D (Vitamin D3) 50,000 unit WEEKLY PO ; Start 06/01/17 at 09:00 Quetiapine Fumarate (SEROquel) 50 mg DAILY08 PO Last administered on 06/02/17 08:19; Start 06/02/17 at 08:00; Stop 06/03/17 at 19:22; Status DC Risperidone (RisperDAL) 0.5 mg BID PO Last administered on 06/04/17 08:20; Start 06/01/17 at 21:00; Stop 06/04/17 at 17:55; Status DC Divalproex Sodium (Depakote Sprinkles) 500 mg 1X ONCE PO Last administered on 06/03/17 20:58; Start 06/03/17 at 21:00; Stop 06/03/17 at 21:01; Status DC Divalproex Sodium (Depakote Sprinkles) 500 mg DAILY PO Last administered on 08:35; Start 06/04/17 at 09:00 Divalproex Sodium (Depakote Sprinkles) 750 mg HS PO Last administered on 19:28; Start 06/04/17 at 21:00 Quetiapine Fumarate (SEROquel) 100 mg DAILYWLUN PO Last administered on 14:24; Start 06/04/17 at 12:00; Stop 06/05/17 at 12:01; Status DC Risperidone (RisperDAL) 0.5 mg DAILY PO Last administered on 06/06/17 08:35; Start 06/05/17 at 09:00; Stop 06/06/17 at 18:20; Status DC Risperidone (RisperDAL) 1 mg HS PO Last administered on 06/05/17 19:29; Start 06/04/17 at 21:00 Diltiazem HCl (Cardizem 24hr Cd) 120 mg 1X ONCE PO Last administered on 16:59; Start 06/06/17 at 16:30; Stop 06/06/17 at 16:31; Status DC Diltiazem HCl (Cardizem 24hr Cd) 120 mg DAILY PO ; Start 06/07/17 at 09:00 Risperidone (RisperDAL) 1 mg DAILY PO ; Start 06/07/17 at 09:00 Active Scripts Active Reported Lorazepam 0.5 Mg Tablet 1 Tab PO PRN Q4HRS PRN Zyprexa Zydis (Olanzapine) 5 Mg Tab.rapdis 5 Mg PO Q4HRS PRN Olanzapine Inj (Olanzapine) 10 Mg Vial 10 Mg IM PRN Q4HRS PRN Seroquel (Quetiapine Fumarate) 50 Mg Tablet 3 Tab PO BID17,21 Seroquel (Quetiapine Fumarate) 100 Mg Tablet 1 Tab PO BIDWBKFT/ELINA Primidone 50 Mg Tablet 50 Mg PO BID Depakote Sprinkle (Divalproex Sodium) 125 Mg Cap.sprink 750 Mg PO QHS Depakote Sprinkle (Divalproex Sodium) 125 Mg Cap.sprink 500 Mg PO DAILY Nystatin 15 Gm Powder 1 Naida TP BID PRN Diltiazem Hcl Tablet (Diltiazem Hcl) 60 Mg Tablet 60 Mg PO BID Tylenol (Acetaminophen) 325 Mg Tablet 2 Tab PO PRN Q8HRS PRN Artificial Tears Eye Drops (Dextran 70/Hypromellose) 15 Ml Drops 1 Drop EACHEYE TID Zyloprim (Allopurinol) 100 Mg Tablet 100 Mg PO DAILY Synthroid (Levothyroxine Sodium) 25 Mcg Tablet 1 Tab PO DAILY06 Senokot (Sennosides) 8.6 Mg Tablet 1 Tab PO BID Miralax (Polyethylene Glycol 3350) 17 Gm Powd.pack 1 Packet PO DAILY Aspirin 81 Mg Tab.chew 81 Mg PO DAILY Diagnosis: Problems: (1) Dementia (2) Schizoaffective disorder (3) Anxiety disorder (4) Impulse control disorder (5) Mild cognitive disorder CARLA HOWARD MD Jun 06, 2017 20:00
[2017-06-06] MEDS: risperiDONE 1 MG TABLET. PO SCH (21:58)
[2017-06-06] MEDS: ATORVASTATIN CALCIUM 20 MG TABLET PO SCH (21:58)
[2017-06-07] MEDS: LEVOTHYROXINE 25 MCG TABLET. PO SCH (05:54)
[2017-06-07 05:58] VITALS: BP 142/71
[2017-06-07 08:48] LABS: BASO % 0 % (0-3); EOS # 0.2 x10^3/uL (0.0-0.7); EOS % 2 % (0-3); HEMATOCRIT 39.8 % (36.0-47.0); LYMPH # 2.2 x10^3/uL (1.0-4.8); LYMPH % 33 % (24-48); MEAN CORPUSCULAR HEMOGLOBIN 30 pg (25-35); MEAN CORPUSCULAR HGB CONC 33 g/dL (31-37); MEAN CORPUSCULAR VOLUME 93 fL (79-100); MONO # 0.4 x10^3/uL (0.0-1.1); MONO % 7 % (0-9); NEUT # 3.9 x10^3uL (1.8-7.7); NEUT % 58 % (31-73); PLATELET COUNT 211 x10^3/uL (140-400); RED BLOOD COUNT 4.29 x10^6/uL (3.50-5.40); RED CELL DISTRIBUTION WIDTH 16.3 % (11.5-14.5); WHITE BLOOD COUNT 6.6 x10^3/uL (4.0-11.0)
[2017-06-07] MEDS: POLYVINYL ALCOHOL 1.4% OPHTH SOLUTION 15ML BOTTLE. OU SCH ×3 (09:00→19:31)
[2017-06-07 09:11] LABS: ALBUMIN 3.4 g/dL (3.4-5.0); ALK PHOS 119 U/L (46-116); ALT (SGPT) 8 U/L (14-59); ANION GAP 9 (6-14); AST (SGOT) 8 U/L (15-37); BLOOD UREA NITROGEN 32 mg/dL (7-20); BUN/CREATININE RATIO 27 (6-20); CALCIUM 9.4 mg/dL (8.5-10.1); CARBON DIOXIDE 30 mmol/L (21-32); CHLORIDE 105 mmol/L (98-107); CREATININE 1.2 mg/dL (0.6-1.0); GFR 44.8; GLUCOSE 108 mg/dL (70-99); SODIUM 144 mmol/L (136-145); TOTAL BILIRUBIN 0.3 mg/dL (0.2-1.0); TOTAL PROTEIN 6.7 g/dL (6.4-8.2)
[2017-06-07 09:28] LABS: VAL ACID 114 mcg/mL (50-100)
[2017-06-07] MEDS: PRIMIDONE 50 MG TABLET PO SCH ×2 (09:35→19:32)
[2017-06-07] MEDS: DIVALPROEX 125 MG CAP.SPRINK PO SCH ×2 (09:35→19:32)
[2017-06-07] MEDS: ALLOPURINOL 100 MG TABLET. PO SCH (09:35)
[2017-06-07] MEDS: SENNOSIDES 8.6 MG TABLET PO SCH ×2 (09:35→19:32)
[2017-06-07] MEDS: ASPIRIN 81 MG TAB.CHEW PO SCH (09:35)
[2017-06-07] MEDS: POLYETHYLENE GLYCOL 3350 17 GM PACKET. PO SCH (09:36)
[2017-06-07] MEDS: risperiDONE 0.5 MG TABLET. PO SCH (09:37)
--- NOTE | 2017-06-07 13:10 | PN ---
DATE: 06/05/2017 SUBJECTIVE: This late entry 05/26/2017 covers elements not covered in my initial note of 06/05/2017. Met with the patient evening of 06/05/2017. The patient has been little irritable through her medications on the floor on the morning of 06/05/2017, said they were cyanide and poison. She took them later, gets irritable, labile. REVIEW OF SYSTEMS: Ambulation impaired, in a wheelchair. No CV, , pulmonary, eye, ENT system symptoms on review. MENTAL STATUS EXAM: Oriented to herself and situation. Speech has some latency, coherent. Abstraction fair, computation impaired, language function intact, attention span short. Mood and affect remains intermittently labile. LABORATORY DATA: Reviewed. IMPRESSION: Schizoaffective disorder, bipolar type, mixed; anxiety disorder, unspecified; impulse control disorder, unspecified. Rest unchanged. PLAN: Continue Risperdal, which was increased to 0.5 mg in the morning and 1 mg at night, Depakote, primidone, Zyprexa, Ativan p.r.n. Seroquel is being tapered. Check valproic acid level in the morning of 06/06/2017 to ensure it is therapeutic. CARLA HOWARD MD DR: MOISES/tamera JOB#: [id number] / [id number]
[2017-06-07] MEDS: QUEtiapine 50 MG TABLET. PO SCH ×2 (16:07→19:37)
[2017-06-07 16:21] VITALS: BP 139/63
[2017-06-07] MEDS: risperiDONE 1 MG TABLET. PO SCH (19:32)
[2017-06-07] MEDS: ATORVASTATIN CALCIUM 20 MG TABLET PO SCH (19:32)
--- NOTE | 2017-06-07 19:59 | PDOC ---
Exam Darvin Demential Exam: Darvin Note: Please also refer to the separate dictated note~for this date of service dictated separately.~Patient seen individually. Discussed the patient with Nursing staff reviewed the chart.~Reviewed interim history and current functioning. Reviewed vital signs,~Labs/ Radiology~and current medications noted below. Continue current treatment with the changes noted in the dictated addendum note Assessment: Vital Signs: Vital Signs Date Time Temp Pulse Resp B/P (MAP) Pulse Ox O2 Delivery O2 Flow Rate FiO2 06/07/17 16:21 98.1 58 20 139/63 (88) 100 06/02/17 06:27 Room Air I&O Intake and Output 06/07/17 07:00 Intake Total 960 ml Balance 960 ml Intake Oral 960 ml # Voids 1 Labs: Laboratory Tests Test 06/07/17 08:34 White Blood Count 6.6 x10^3/uL (4.0-11.0) Red Blood Count 4.29 x10^6/uL (3.50-5.40) Hemoglobin 13.0 g/dL (12.0-15.5) Hematocrit 39.8 % (36.0-47.0) Mean Corpuscular Volume 93 fL (79-100) Mean Corpuscular Hemoglobin 30 pg (25-35) Mean Corpuscular Hemoglobin Concent 33 g/dL (31-37) Red Cell Distribution Width 16.3 % (11.5-14.5) H Platelet Count 211 x10^3/uL (140-400) Neutrophils (%) (Auto) 58 % (31-73) Lymphocytes (%) (Auto) 33 % (24-48) Monocytes (%) (Auto) 7 % (0-9) Eosinophils (%) (Auto) 2 % (0-3) Basophils (%) (Auto) 0 % (0-3) Neutrophils # (Auto) 3.9 x10^3uL (1.8-7.7) Lymphocytes # (Auto) 2.2 x10^3/uL (1.0-4.8) Monocytes # (Auto) 0.4 x10^3/uL (0.0-1.1) Eosinophils # (Auto) 0.2 x10^3/uL (0.0-0.7) Basophils # (Auto) 0.0 x10^3/uL (0.0-0.2) Sodium Level 144 mmol/L (136-145) Potassium Level 4.0 mmol/L (3.5-5.1) Chloride Level 105 mmol/L (98-107) Carbon Dioxide Level 30 mmol/L (21-32) Anion Gap 9 (6-14) Blood Urea Nitrogen 32 mg/dL (7-20) H Creatinine 1.2 mg/dL (0.6-1.0) H Estimated GFR (Cockcroft-Gault) 44.8 BUN/Creatinine Ratio 27 (6-20) H Glucose Level 108 mg/dL (70-99) H Calcium Level 9.4 mg/dL (8.5-10.1) Total Bilirubin 0.3 mg/dL (0.2-1.0) Aspartate Amino Transferase (AST) 8 U/L (15-37) L Alanine Aminotransferase (ALT) 8 U/L (14-59) L Alkaline Phosphatase 119 U/L (46-116) H Total Protein 6.7 g/dL (6.4-8.2) Albumin 3.4 g/dL (3.4-5.0) Albumin/Globulin Ratio 1.0 (1.0-1.7) Valproic Acid Level 114 mcg/mL (50-100) H Valproic Acid Last Dose Date 06/06/17 Valproic Acid Last Dose Time 2100 Current Medications: Meds: Current Medications Acetaminophen (Tylenol) 650 mg PRN Q8HRS PRN PO PAIN Last administered on 20:49; Start 05/29/17 at 14:15 Allopurinol (Zyloprim) 100 mg DAILY PO Last administered on 06/07/17 09:35; Start 05/30/17 at 09:00 Aspirin (Children'S Aspirin) 81 mg DAILY PO Last administered on 06/07/17 09: 35; Start 05/30/17 at 09:00 Levothyroxine Sodium (Synthroid) 25 mcg DAILY06 PO Last administered on 05:54; Start 05/30/17 at 06:00 Nystatin (Nystop) 1 naida PRN BID PRN TP REDNESS; Start 05/29/17 at 14:15 Polyethylene Glycol (miraLAX) 17 gm DAILY PO Last administered on 06/07/17 09: 36; Start 05/30/17 at 09:00 Primidone (Mysoline) 50 mg BID PO Last administered on 06/07/17 19:32; Start 05/29/17 at 21:00 Sennosides (Senna) 8.6 mg BID PO Last administered on 06/07/17 19:32; Start at 21:00 Artificial Tears (Artificial Tears) 1 drop TID OU Last administered on 14:50; Start 05/29/17 at 21:00 Diltiazem HCl (Cardizem) 60 mg BID PO Last administered on 06/06/17 08:35; Start 05/29/17 at 21:00; Stop 06/06/17 at 16:16; Status DC Al Hydroxide/Mg Hydroxide (Mylanta Plus Xs) 15 ml PRN AFTMEALHC PRN PO DYSPEPSIA; Start 05/29/17 at 16:00 Magnesium Hydroxide (Milk Of Magnesia) 2,400 mg PRN QHS PRN PO CONSTIPATION; Start 05/29/17 at 16:00 Lorazepam (Ativan) 0.5 mg PRN Q4HRS PRN PO ANXIETY / AGITATION Last administered on 05/31/17 13:12; Start 05/29/17 at 16:45 Olanzapine (ZyPREXA ZYDIS) 5 mg PRN Q4HRS PRN PO PSYCHOSIS Last administered on 06/01/17 18:37; Start 05/29/17 at 16:45 Divalproex Sodium (Depakote Sprinkles) 500 mg DAILY PO Last administered on 08:58; Start 05/30/17 at 09:00; Stop 05/31/17 at 12:04; Status DC Divalproex Sodium (Depakote Sprinkles) 750 mg QHS PO Last administered on 19:57; Start 05/29/17 at 21:00; Stop 05/31/17 at 12:04; Status DC Quetiapine Fumarate (SEROquel) 150 mg 1700,2100 PO Last administered on 19:37; Start 05/29/17 at 17:00 Quetiapine Fumarate (SEROquel) 100 mg BIDWBK/ PO ; Start 05/30/17 at 08:00; Stop 05/30/17 at 08:00; Status DC Pneumococcal Polyvalent Vaccine (Pneumovax 23) 0.5 ml ONCE ONCE VAX IM Last administered on 05/30/17 09:08; Start 05/30/17 at 09:00; Stop 05/30/17 at 09:01; Status DC Quetiapine Fumarate (SEROquel) 100 mg DAILY08 PO Last administered on 12:51; Start 05/30/17 at 08:00; Stop 06/01/17 at 18:41; Status DC Quetiapine Fumarate (SEROquel) 200 mg DAILYWLUN PO Last administered on 13:06; Start 05/30/17 at 12:00; Stop 06/03/17 at 19:21; Status DC Divalproex Sodium (Depakote Sprinkles) 1,000 mg QHS PO Last administered on 19:59; Start 05/31/17 at 21:00; Stop 06/03/17 at 09:51; Status DC Divalproex Sodium (Depakote Sprinkles) 750 mg DAILY PO Last administered on 07:58; Start 06/01/17 at 09:00; Stop 06/03/17 at 09:51; Status DC Atorvastatin Calcium (Lipitor) 20 mg QHS PO Last administered on 06/07/17 19: 32; Start 05/31/17 at 21:00 Cyanocobalamin (Vitamin B-12) 1,000 mcg [id number] IM ; Start 06/01/17 at 09:00 Vitamin D (Vitamin D3) 50,000 unit WEEKLY PO ; Start 06/01/17 at 09:00 Quetiapine Fumarate (SEROquel) 50 mg DAILY08 PO Last administered on 06/02/17 08:19; Start 06/02/17 at 08:00; Stop 06/03/17 at 19:22; Status DC Risperidone (RisperDAL) 0.5 mg BID PO Last administered on 06/04/17 08:20; Start 06/01/17 at 21:00; Stop 06/04/17 at 17:55; Status DC Divalproex Sodium (Depakote Sprinkles) 500 mg 1X ONCE PO Last administered on 06/03/17 20:58; Start 06/03/17 at 21:00; Stop 06/03/17 at 21:01; Status DC Divalproex Sodium (Depakote Sprinkles) 500 mg DAILY PO Last administered on 09:35; Start 06/04/17 at 09:00 Divalproex Sodium (Depakote Sprinkles) 750 mg HS PO Last administered on 19:32; Start 06/04/17 at 21:00 Quetiapine Fumarate (SEROquel) 100 mg DAILYWLUN PO Last administered on 14:24; Start 06/04/17 at 12:00; Stop 06/05/17 at 12:01; Status DC Risperidone (RisperDAL) 0.5 mg DAILY PO Last administered on 06/06/17 08:35; Start 06/05/17 at 09:00; Stop 06/06/17 at 18:20; Status DC Risperidone (RisperDAL) 1 mg HS PO Last administered on 06/07/17 19:32; Start 06/04/17 at 21:00 Diltiazem HCl (Cardizem 24hr Cd) 120 mg 1X ONCE PO Last administered on 16:59; Start 06/06/17 at 16:30; Stop 06/06/17 at 16:31; Status DC Diltiazem HCl (Cardizem 24hr Cd) 120 mg DAILY PO Last administered on 09:37; Start 06/07/17 at 09:00 Risperidone (RisperDAL) 1 mg DAILY PO Last administered on 06/07/17 09:37; Start 06/07/17 at 09:00 Active Scripts Active Reported Lorazepam 0.5 Mg Tablet 1 Tab PO PRN Q4HRS PRN Zyprexa Zydis (Olanzapine) 5 Mg Tab.rapdis 5 Mg PO Q4HRS PRN Olanzapine Inj (Olanzapine) 10 Mg Vial 10 Mg IM PRN Q4HRS PRN Seroquel (Quetiapine Fumarate) 50 Mg Tablet 3 Tab PO BID17,21 Seroquel (Quetiapine Fumarate) 100 Mg Tablet 1 Tab PO BIDWBKFT/ELINA Primidone 50 Mg Tablet 50 Mg PO BID Depakote Sprinkle (Divalproex Sodium) 125 Mg Cap.sprink 750 Mg PO QHS Depakote Sprinkle (Divalproex Sodium) 125 Mg Cap.sprink 500 Mg PO DAILY Nystatin 15 Gm Powder 1 Naida TP BID PRN Diltiazem Hcl Tablet (Diltiazem Hcl) 60 Mg Tablet 60 Mg PO BID Tylenol (Acetaminophen) 325 Mg Tablet 2 Tab PO PRN Q8HRS PRN Artificial Tears Eye Drops (Dextran 70/Hypromellose) 15 Ml Drops 1 Drop EACHEYE TID Zyloprim (Allopurinol) 100 Mg Tablet 100 Mg PO DAILY Synthroid (Levothyroxine Sodium) 25 Mcg Tablet 1 Tab PO DAILY06 Senokot (Sennosides) 8.6 Mg Tablet 1 Tab PO BID Miralax (Polyethylene Glycol 3350) 17 Gm Powd.pack 1 Packet PO DAILY Aspirin 81 Mg Tab.chew 81 Mg PO DAILY Diagnosis: Problems: (1) Dementia (2) Schizoaffective disorder (3) Anxiety disorder (4) Impulse control disorder CARLA HOWARD MD Jun 07, 2017 19:59
[2017-06-08 06:17] VITALS: BP 144/85
[2017-06-08] MEDS: LEVOTHYROXINE 25 MCG TABLET. PO SCH (06:26)
--- NOTE | 2017-06-08 07:45 | PN ---
DATE: 06/06/2017 This late entry 06/06/2017 covers elements not covered in my initial note. SUBJECTIVE: I met with the patient evening of 06/06/2017. The patient has had a very difficult day, has been loud, yelling, screaming, evening of 06/06/2017. States her medications are dipped in motor oil. She refused to take them earlier, took them later, resistive in this respect. Ambulation impaired. No CV, , pulmonary, eye, ENT system symptoms on review. Reliability poor. MENTAL STATUS EXAM: Oriented to herself and situation. Speech coherent, rapid, loud, yelling, screaming, disrupting the entire unit evening of 06/06/2017 as I met with her. Insight limited, judgment marginal, language function intact, attention span short, mood and affect labile and psychotic. LABORATORY DATA: Labs were to be done on 06/06/2017 were not drawn, we will draw then on 06/07/2017. IMPRESSION: Unchanged from initial note. PLAN: The patient is currently on Risperdal 0.5 mg in the morning and 1 mg at night. We will increase to 1 mg twice a day. Continue Seroquel at current dosage and we will continue to taper this. Check labs level on the Depakote. Remains on primidone along with Ativan p.r.n. Adjust further as clinically indicated. MAN Kranthi HOWARD MD DR: MOISES/tamera JOB#: [id number] / [id number]
[2017-06-08] MEDS: POLYVINYL ALCOHOL 1.4% OPHTH SOLUTION 15ML BOTTLE. OU SCH ×2 (08:37→14:00)
[2017-06-08] MEDS: risperiDONE 0.5 MG TABLET. PO SCH (08:39)
[2017-06-08] MEDS: DIVALPROEX 125 MG CAP.SPRINK PO SCH ×2 (08:39→19:31)
[2017-06-08] MEDS: PRIMIDONE 50 MG TABLET PO SCH ×2 (08:39→19:32)
[2017-06-08] MEDS: SENNOSIDES 8.6 MG TABLET PO SCH ×2 (08:39→19:32)
[2017-06-08] MEDS: ALLOPURINOL 100 MG TABLET. PO SCH (08:39)
[2017-06-08] MEDS: ASPIRIN 81 MG TAB.CHEW PO SCH (08:39)
[2017-06-08] MEDS: POLYETHYLENE GLYCOL 3350 17 GM PACKET. PO SCH (08:40)
[2017-06-08] MEDS: CHOLECALCIFEROL (VITAMIN D3) 50,000 UNIT CAPSULE PO SCH (08:40)
[2017-06-08 16:47] VITALS: BP 143/62
[2017-06-08] MEDS: QUEtiapine 50 MG TABLET. PO SCH ×2 (17:26→19:30)
[2017-06-08] MEDS: risperiDONE 1 MG TABLET. PO SCH (19:31)
[2017-06-08] MEDS: ATORVASTATIN CALCIUM 20 MG TABLET PO SCH (19:32)
--- NOTE | 2017-06-08 20:04 | PDOC ---
Exam Darvin Demential Exam: Darvin Note: Please also refer to the separate dictated note~for this date of service dictated separately.~Patient seen individually. Discussed the patient with Nursing staff reviewed the chart.~Reviewed interim history and current functioning. Reviewed vital signs,~Labs/ Radiology~and current medications noted below. Continue current treatment with the changes noted in the dictated addendum note Assessment: Vital Signs: Vital Signs Date Time Temp Pulse Resp B/P (MAP) Pulse Ox O2 Delivery O2 Flow Rate FiO2 06/08/17 16:47 97.9 83 16 143/62 (89) 99 I&O Intake and Output 06/08/17 07:00 Intake Total 860 ml Balance 860 ml Intake Oral 860 ml Current Medications: Meds: Current Medications Acetaminophen (Tylenol) 650 mg PRN Q8HRS PRN PO PAIN Last administered on 20:49; Start 05/29/17 at 14:15 Allopurinol (Zyloprim) 100 mg DAILY PO Last administered on 06/08/17 08:39; Start 05/30/17 at 09:00 Aspirin (Children'S Aspirin) 81 mg DAILY PO Last administered on 06/08/17 08: 39; Start 05/30/17 at 09:00 Levothyroxine Sodium (Synthroid) 25 mcg DAILY06 PO Last administered on 06:26; Start 05/30/17 at 06:00 Nystatin (Nystop) 1 naida PRN BID PRN TP REDNESS; Start 05/29/17 at 14:15 Polyethylene Glycol (miraLAX) 17 gm DAILY PO Last administered on 06/07/17 09: 36; Start 05/30/17 at 09:00 Primidone (Mysoline) 50 mg BID PO Last administered on 06/08/17 19:32; Start 05/29/17 at 21:00 Sennosides (Senna) 8.6 mg BID PO Last administered on 06/08/17 19:32; Start at 21:00 Artificial Tears (Artificial Tears) 1 drop TID OU Last administered on 14:50; Start 05/29/17 at 21:00 Diltiazem HCl (Cardizem) 60 mg BID PO Last administered on 06/06/17 08:35; Start 05/29/17 at 21:00; Stop 06/06/17 at 16:16; Status DC Al Hydroxide/Mg Hydroxide (Mylanta Plus Xs) 15 ml PRN AFTMEALHC PRN PO DYSPEPSIA; Start 05/29/17 at 16:00 Magnesium Hydroxide (Milk Of Magnesia) 2,400 mg PRN QHS PRN PO CONSTIPATION; Start 05/29/17 at 16:00 Lorazepam (Ativan) 0.5 mg PRN Q4HRS PRN PO ANXIETY / AGITATION Last administered on 05/31/17 13:12; Start 05/29/17 at 16:45 Olanzapine (ZyPREXA ZYDIS) 5 mg PRN Q4HRS PRN PO PSYCHOSIS Last administered on 06/01/17 18:37; Start 05/29/17 at 16:45 Divalproex Sodium (Depakote Sprinkles) 500 mg DAILY PO Last administered on 08:58; Start 05/30/17 at 09:00; Stop 05/31/17 at 12:04; Status DC Divalproex Sodium (Depakote Sprinkles) 750 mg QHS PO Last administered on 19:57; Start 05/29/17 at 21:00; Stop 05/31/17 at 12:04; Status DC Quetiapine Fumarate (SEROquel) 150 mg 1700,2100 PO Last administered on 19:30; Start 05/29/17 at 17:00 Quetiapine Fumarate (SEROquel) 100 mg BIDWBKFT/ELINA PO ; Start 05/30/17 at 08:00; Stop 05/30/17 at 08:00; Status DC Pneumococcal Polyvalent Vaccine (Pneumovax 23) 0.5 ml ONCE ONCE VAX IM Last administered on 05/30/17 09:08; Start 05/30/17 at 09:00; Stop 05/30/17 at 09:01; Status DC Quetiapine Fumarate (SEROquel) 100 mg DAILY08 PO Last administered on 12:51; Start 05/30/17 at 08:00; Stop 06/01/17 at 18:41; Status DC Quetiapine Fumarate (SEROquel) 200 mg DAILYWLUN PO Last administered on 13:06; Start 05/30/17 at 12:00; Stop 06/03/17 at 19:21; Status DC Divalproex Sodium (Depakote Sprinkles) 1,000 mg QHS PO Last administered on 19:59; Start 05/31/17 at 21:00; Stop 06/03/17 at 09:51; Status DC Divalproex Sodium (Depakote Sprinkles) 750 mg DAILY PO Last administered on 07:58; Start 06/01/17 at 09:00; Stop 06/03/17 at 09:51; Status DC Atorvastatin Calcium (Lipitor) 20 mg QHS PO Last administered on 06/08/17 19: 32; Start 05/31/17 at 21:00 Cyanocobalamin (Vitamin B-12) 1,000 mcg [id number] IM ; Start 06/01/17 at 09:00 Vitamin D (Vitamin D3) 50,000 unit WEEKLY PO Last administered on 06/08/17 08: 40; Start 06/01/17 at 09:00 Quetiapine Fumarate (SEROquel) 50 mg DAILY08 PO Last administered on 06/02/17 08:19; Start 06/02/17 at 08:00; Stop 06/03/17 at 19:22; Status DC Risperidone (RisperDAL) 0.5 mg BID PO Last administered on 06/04/17 08:20; Start 06/01/17 at 21:00; Stop 06/04/17 at 17:55; Status DC Divalproex Sodium (Depakote Sprinkles) 500 mg 1X ONCE PO Last administered on 06/03/17 20:58; Start 06/03/17 at 21:00; Stop 06/03/17 at 21:01; Status DC Divalproex Sodium (Depakote Sprinkles) 500 mg DAILY PO Last administered on 08:39; Start 06/04/17 at 09:00 Divalproex Sodium (Depakote Sprinkles) 750 mg HS PO Last administered on 19:31; Start 06/04/17 at 21:00 Quetiapine Fumarate (SEROquel) 100 mg DAILYWLUN PO Last administered on 14:24; Start 06/04/17 at 12:00; Stop 06/05/17 at 12:01; Status DC Risperidone (RisperDAL) 0.5 mg DAILY PO Last administered on 06/06/17 08:35; Start 06/05/17 at 09:00; Stop 06/06/17 at 18:20; Status DC Risperidone (RisperDAL) 1 mg HS PO Last administered on 06/07/17 19:32; Start 06/04/17 at 21:00; Stop 06/08/17 at 18:30; Status DC Diltiazem HCl (Cardizem 24hr Cd) 120 mg 1X ONCE PO Last administered on 16:59; Start 06/06/17 at 16:30; Stop 06/06/17 at 16:31; Status DC Diltiazem HCl (Cardizem 24hr Cd) 120 mg DAILY PO Last administered on 08:39; Start 06/07/17 at 09:00 Risperidone (RisperDAL) 1 mg DAILY PO Last administered on 06/08/17 08:39; Start 06/07/17 at 09:00 Risperidone (RisperDAL) 1.5 mg HS PO Last administered on 06/08/17 19:31; Start 06/08/17 at 21:00 Active Scripts Active Reported Lorazepam 0.5 Mg Tablet 1 Tab PO PRN Q4HRS PRN Zyprexa Zydis (Olanzapine) 5 Mg Tab.rapdis 5 Mg PO Q4HRS PRN Olanzapine Inj (Olanzapine) 10 Mg Vial 10 Mg IM PRN Q4HRS PRN Seroquel (Quetiapine Fumarate) 50 Mg Tablet 3 Tab PO BID17,21 Seroquel (Quetiapine Fumarate) 100 Mg Tablet 1 Tab PO BIDWBKFT/ELINA Primidone 50 Mg Tablet 50 Mg PO BID Depakote Sprinkle (Divalproex Sodium) 125 Mg Cap.sprink 750 Mg PO QHS Depakote Sprinkle (Divalproex Sodium) 125 Mg Cap.sprink 500 Mg PO DAILY Nystatin 15 Gm Powder 1 Naida TP BID PRN Diltiazem Hcl Tablet (Diltiazem Hcl) 60 Mg Tablet 60 Mg PO BID Tylenol (Acetaminophen) 325 Mg Tablet 2 Tab PO PRN Q8HRS PRN Artificial Tears Eye Drops (Dextran 70/Hypromellose) 15 Ml Drops 1 Drop EACHEYE TID Zyloprim (Allopurinol) 100 Mg Tablet 100 Mg PO DAILY Synthroid (Levothyroxine Sodium) 25 Mcg Tablet 1 Tab PO DAILY06 Senokot (Sennosides) 8.6 Mg Tablet 1 Tab PO BID Miralax (Polyethylene Glycol 3350) 17 Gm Powd.pack 1 Packet PO DAILY Aspirin 81 Mg Tab.chew 81 Mg PO DAILY Diagnosis: Problems: (1) Dementia (2) Schizoaffective disorder (3) Anxiety disorder (4) Impulse control disorder (5) Mild cognitive disorder CARLA HOWARD MD Jun 08, 2017 20:04
[2017-06-09] MEDS: POLYVINYL ALCOHOL 1.4% OPHTH SOLUTION 15ML BOTTLE. OU SCH ×4 (01:26→19:32)
--- NOTE | 2017-06-09 02:28 | PN ---
DATE: 06/07/2017 This late entry 06/07/2017 covers elements not covered in my initial note of 06/07/2017. SUBJECTIVE: The patient was staffed at a treatment team meeting morning of 06/07/2017, seen individually evening of 06/07/2017. She often refuses her psychotropics saying that dipped in motor oil or the cyanide. REVIEW OF SYSTEMS: Ambulation impaired. No CV, , pulmonary, eye, ENT system symptoms on review. Reliability poor. MENTAL STATUS EXAM: Oriented to herself. Insight, judgment, recent and remote memory, attention, concentration, fund of knowledge poor, consistent with her diagnosis as mentioned in my initial note, schizoaffective disorder, bipolar type, mixed with psychotic features; anxiety disorder, unspecified; impulse control disorder, unspecified mild cognitive impairment. PLAN: Continue psychotropics mentioned in my initial note, increase Risperdal to 1 mg twice a day, Seroquel is being tapered. Check labs level and ammonia level on Sunday06/09/2017 and adjust Depakote thereafter. MAN Kranthi HOWARD MD DR: MOISES/tamera JOB#: [id number] / [id number]
[2017-06-09] MEDS: LEVOTHYROXINE 25 MCG TABLET. PO SCH (05:45)
[2017-06-09 06:16] VITALS: BP 119/67
[2017-06-09] MEDS: DIVALPROEX 125 MG CAP.SPRINK PO SCH ×2 (08:59→19:26)
[2017-06-09] MEDS: ASPIRIN 81 MG TAB.CHEW PO SCH (08:59)
[2017-06-09] MEDS: PRIMIDONE 50 MG TABLET PO SCH ×2 (09:00→19:24)
[2017-06-09] MEDS: POLYETHYLENE GLYCOL 3350 17 GM PACKET. PO SCH (09:00)
[2017-06-09] MEDS: SENNOSIDES 8.6 MG TABLET PO SCH ×3 (09:00→19:32)
[2017-06-09] MEDS: ALLOPURINOL 100 MG TABLET. PO SCH (09:01)
[2017-06-09] MEDS: risperiDONE 0.5 MG TABLET. PO SCH (09:01)
[2017-06-09 15:54] VITALS: BP 147/65
[2017-06-09] MEDS: QUEtiapine 50 MG TABLET. PO SCH ×2 (16:58→19:25)
[2017-06-09] MEDS: risperiDONE 1 MG TABLET. PO SCH (19:25)
[2017-06-09] MEDS: ATORVASTATIN CALCIUM 20 MG TABLET PO SCH (19:25)
--- NOTE | 2017-06-09 22:03 | PN ---
DATE: 06/08/2017 This late entry 06/08/2017 covers elements not covered in my initial note of 06/08/2017. SUBJECTIVE: Met with the patient evening of 06/08/2017. Per nursing report, the patient remains paranoid, suspicious, somewhat bizarre in the behavior. Has drinks in cup. Her psychotropics are mixed and refused MiraLax. REVIEW OF SYSTEMS: Ambulation impaired, in a wheelchair. No CV, , pulmonary, eye, ENT system symptoms on review. MENTAL STATUS EXAM: Oriented to herself and situation. Speech is coherent, has some latency. Abstraction fair, computation impaired, language function intact. Mood and affect somewhat withdrawn. She is much calmer as I met with her, said she felt "much better." She said she felt less anxious, was thankful that she met with me. LABORATORY DATA: Reviewed. IMPRESSION: Unchanged from initial note. PLAN: Continue current psychotropics. Depakote was reduced. Repeat labs are awaited. Risperdal was increased. Adjust further as clinically indicated. CARLA HOWARD MD DR: MOISES/tamera JOB#: [id number] / [id number]
--- NOTE | 2017-06-09 23:30 | PDOC ---
Exam Darvin Demential Exam: Darvin Note: Please also refer to the separate dictated note~for this date of service dictated separately.~Patient seen individually. Discussed the patient with Nursing staff reviewed the chart.~Reviewed interim history and current functioning. Reviewed vital signs,~Labs/ Radiology~and current medications noted below. Continue current treatment with the changes noted in the dictated addendum note Assessment: Vital Signs: Vital Signs Date Time Temp Pulse Resp B/P (MAP) Pulse Ox O2 Delivery O2 Flow Rate FiO2 06/09/17 15:54 98.5 79 20 147/65 (92) 100 I&O Intake and Output 06/09/17 07:00 Intake Total 1120 ml Balance 1120 ml Intake Oral 1120 ml Current Medications: Meds: Current Medications Acetaminophen (Tylenol) 650 mg PRN Q8HRS PRN PO PAIN Last administered on 20:49; Start 05/29/17 at 14:15 Allopurinol (Zyloprim) 100 mg DAILY PO Last administered on 06/09/17 09:01; Start 05/30/17 at 09:00 Aspirin (Children'S Aspirin) 81 mg DAILY PO Last administered on 06/09/17 08: 59; Start 05/30/17 at 09:00 Levothyroxine Sodium (Synthroid) 25 mcg DAILY06 PO Last administered on 05:45; Start 05/30/17 at 06:00 Nystatin (Nystop) 1 naida PRN BID PRN TP REDNESS; Start 05/29/17 at 14:15 Polyethylene Glycol (miraLAX) 17 gm DAILY PO Last administered on 06/07/17 09: 36; Start 05/30/17 at 09:00 Primidone (Mysoline) 50 mg BID PO Last administered on 06/09/17 19:24; Start 05/29/17 at 21:00 Sennosides (Senna) 8.6 mg BID PO Last administered on 06/09/17 19:32; Start at 21:00 Artificial Tears (Artificial Tears) 1 drop TID OU Last administered on 19:32; Start 05/29/17 at 21:00 Diltiazem HCl (Cardizem) 60 mg BID PO Last administered on 06/06/17 08:35; Start 05/29/17 at 21:00; Stop 06/06/17 at 16:16; Status DC Al Hydroxide/Mg Hydroxide (Mylanta Plus Xs) 15 ml PRN AFTMEALHC PRN PO DYSPEPSIA; Start 05/29/17 at 16:00 Magnesium Hydroxide (Milk Of Magnesia) 2,400 mg PRN QHS PRN PO CONSTIPATION; Start 05/29/17 at 16:00 Lorazepam (Ativan) 0.5 mg PRN Q4HRS PRN PO ANXIETY / AGITATION Last administered on 05/31/17 13:12; Start 05/29/17 at 16:45 Olanzapine (ZyPREXA ZYDIS) 5 mg PRN Q4HRS PRN PO PSYCHOSIS Last administered on 06/01/17 18:37; Start 05/29/17 at 16:45 Divalproex Sodium (Depakote Sprinkles) 500 mg DAILY PO Last administered on 08:58; Start 05/30/17 at 09:00; Stop 05/31/17 at 12:04; Status DC Divalproex Sodium (Depakote Sprinkles) 750 mg QHS PO Last administered on 19:57; Start 05/29/17 at 21:00; Stop 05/31/17 at 12:04; Status DC Quetiapine Fumarate (SEROquel) 150 mg 1700,2100 PO Last administered on 19:25; Start 05/29/17 at 17:00; Stop 06/09/17 at 22:05; Status DC Quetiapine Fumarate (SEROquel) 100 mg BIDWBKFT/ELINA PO ; Start 05/30/17 at 08:00; Stop 05/30/17 at 08:00; Status DC Pneumococcal Polyvalent Vaccine (Pneumovax 23) 0.5 ml ONCE ONCE VAX IM Last administered on 05/30/17 09:08; Start 05/30/17 at 09:00; Stop 05/30/17 at 09:01; Status DC Quetiapine Fumarate (SEROquel) 100 mg DAILY08 PO Last administered on 12:51; Start 05/30/17 at 08:00; Stop 06/01/17 at 18:41; Status DC Quetiapine Fumarate (SEROquel) 200 mg DAILYWLUN PO Last administered on 13:06; Start 05/30/17 at 12:00; Stop 06/03/17 at 19:21; Status DC Divalproex Sodium (Depakote Sprinkles) 1,000 mg QHS PO Last administered on 19:59; Start 05/31/17 at 21:00; Stop 06/03/17 at 09:51; Status DC Divalproex Sodium (Depakote Sprinkles) 750 mg DAILY PO Last administered on 07:58; Start 06/01/17 at 09:00; Stop 06/03/17 at 09:51; Status DC Atorvastatin Calcium (Lipitor) 20 mg QHS PO Last administered on 06/09/17 19: 25; Start 05/31/17 at 21:00 Cyanocobalamin (Vitamin B-12) 1,000 mcg [id number] IM ; Start 06/01/17 at 09:00 Vitamin D (Vitamin D3) 50,000 unit WEEKLY PO Last administered on 06/08/17 08: 40; Start 06/01/17 at 09:00 Quetiapine Fumarate (SEROquel) 50 mg DAILY08 PO Last administered on 06/02/17 08:19; Start 06/02/17 at 08:00; Stop 06/03/17 at 19:22; Status DC Risperidone (RisperDAL) 0.5 mg BID PO Last administered on 06/04/17 08:20; Start 06/01/17 at 21:00; Stop 06/04/17 at 17:55; Status DC Divalproex Sodium (Depakote Sprinkles) 500 mg 1X ONCE PO Last administered on 06/03/17 20:58; Start 06/03/17 at 21:00; Stop 06/03/17 at 21:01; Status DC Divalproex Sodium (Depakote Sprinkles) 500 mg DAILY PO Last administered on 08:59; Start 06/04/17 at 09:00 Divalproex Sodium (Depakote Sprinkles) 750 mg HS PO Last administered on 19:26; Start 06/04/17 at 21:00 Quetiapine Fumarate (SEROquel) 100 mg DAILYWLUN PO Last administered on 14:24; Start 06/04/17 at 12:00; Stop 06/05/17 at 12:01; Status DC Risperidone (RisperDAL) 0.5 mg DAILY PO Last administered on 06/06/17 08:35; Start 06/05/17 at 09:00; Stop 06/06/17 at 18:20; Status DC Risperidone (RisperDAL) 1 mg HS PO Last administered on 06/07/17 19:32; Start 06/04/17 at 21:00; Stop 06/08/17 at 18:30; Status DC Diltiazem HCl (Cardizem 24hr Cd) 120 mg 1X ONCE PO Last administered on 16:59; Start 06/06/17 at 16:30; Stop 06/06/17 at 16:31; Status DC Diltiazem HCl (Cardizem 24hr Cd) 120 mg DAILY PO Last administered on 08:59; Start 06/07/17 at 09:00 Risperidone (RisperDAL) 1 mg DAILY PO Last administered on 06/09/17 09:01; Start 06/07/17 at 09:00 Risperidone (RisperDAL) 1.5 mg HS PO Last administered on 06/09/17 19:25; Start 06/08/17 at 21:00 Quetiapine Fumarate (SEROquel) 100 mg QHS PO ; Start 06/10/17 at 21:00; Stop at 21:01 Quetiapine Fumarate (SEROquel) 150 mg QPM PO ; Start 06/10/17 at 17:00; Stop at 17:01 Quetiapine Fumarate (SEROquel) 100 mg BID@1700,2100 PO ; Start 06/13/17 at 17:00 Active Scripts Active Reported Lorazepam 0.5 Mg Tablet 1 Tab PO PRN Q4HRS PRN Zyprexa Zydis (Olanzapine) 5 Mg Tab.rapdis 5 Mg PO Q4HRS PRN Olanzapine Inj (Olanzapine) 10 Mg Vial 10 Mg IM PRN Q4HRS PRN Seroquel (Quetiapine Fumarate) 50 Mg Tablet 3 Tab PO BID17,21 Seroquel (Quetiapine Fumarate) 100 Mg Tablet 1 Tab PO BIDWBKFT/ELINA Primidone 50 Mg Tablet 50 Mg PO BID Depakote Sprinkle (Divalproex Sodium) 125 Mg Cap.sprink 750 Mg PO QHS Depakote Sprinkle (Divalproex Sodium) 125 Mg Cap.sprink 500 Mg PO DAILY Nystatin 15 Gm Powder 1 Naida TP BID PRN Diltiazem Hcl Tablet (Diltiazem Hcl) 60 Mg Tablet 60 Mg PO BID Tylenol (Acetaminophen) 325 Mg Tablet 2 Tab PO PRN Q8HRS PRN Artificial Tears Eye Drops (Dextran 70/Hypromellose) 15 Ml Drops 1 Drop EACHEYE TID Zyloprim (Allopurinol) 100 Mg Tablet 100 Mg PO DAILY Synthroid (Levothyroxine Sodium) 25 Mcg Tablet 1 Tab PO DAILY06 Senokot (Sennosides) 8.6 Mg Tablet 1 Tab PO BID Miralax (Polyethylene Glycol 3350) 17 Gm Powd.pack 1 Packet PO DAILY Aspirin 81 Mg Tab.chew 81 Mg PO DAILY Diagnosis: Problems: (1) Dementia (2) Schizoaffective disorder (3) Anxiety disorder (4) Impulse control disorder (5) Mild cognitive disorder CARLA HOWARD MD Jun 09, 2017 23:30
[2017-06-10] MEDS: LEVOTHYROXINE 25 MCG TABLET. PO SCH (05:28)
[2017-06-10 05:48] VITALS: BP 141/75
[2017-06-10] MEDS: POLYVINYL ALCOHOL 1.4% OPHTH SOLUTION 15ML BOTTLE. OU SCH ×3 (07:58→20:18)
[2017-06-10] MEDS: ASPIRIN 81 MG TAB.CHEW PO SCH (07:59)
[2017-06-10] MEDS: DIVALPROEX 125 MG CAP.SPRINK PO SCH ×2 (07:59→20:18)
[2017-06-10] MEDS: POLYETHYLENE GLYCOL 3350 17 GM PACKET. PO SCH (08:00)
[2017-06-10] MEDS: risperiDONE 0.5 MG TABLET. PO SCH (08:01)
[2017-06-10] MEDS: SENNOSIDES 8.6 MG TABLET PO SCH ×2 (08:01→20:19)
[2017-06-10] MEDS: PRIMIDONE 50 MG TABLET PO SCH ×2 (08:01→20:19)
[2017-06-10] MEDS: ALLOPURINOL 100 MG TABLET. PO SCH (08:01)
[2017-06-10 16:03] LABS: BASO % 0 % (0-3); EOS # 0.2 x10^3/uL (0.0-0.7); EOS % 2 % (0-3); HEMATOCRIT 32.6 % (36.0-47.0); HEMOGLOBIN 10.9 g/dL (12.0-15.5); LYMPH # 2.7 x10^3/uL (1.0-4.8); LYMPH % 37 % (24-48); MEAN CORPUSCULAR HEMOGLOBIN 31 pg (25-35); MEAN CORPUSCULAR HGB CONC 34 g/dL (31-37); MEAN CORPUSCULAR VOLUME 92 fL (79-100); MONO # 0.5 x10^3/uL (0.0-1.1); MONO % 7 % (0-9); NEUT # 3.8 x10^3uL (1.8-7.7); NEUT % 53 % (31-73); PLATELET COUNT 188 x10^3/uL (140-400); RED BLOOD COUNT 3.55 x10^6/uL (3.50-5.40); RED CELL DISTRIBUTION WIDTH 15.8 % (11.5-14.5); WHITE BLOOD COUNT 7.1 x10^3/uL (4.0-11.0)
[2017-06-10 16:11] LABS: ALBUMIN 2.8 g/dL (3.4-5.0); ALBUMIN/GLOBULIN RATIO 0.9 (1.0-1.7); ALK PHOS 93 U/L (46-116); ANION GAP 5 (6-14); AST (SGOT) 5 U/L (15-37); BLOOD UREA NITROGEN 31 mg/dL (7-20); BUN/CREATININE RATIO 26 (6-20); CALCIUM 8.7 mg/dL (8.5-10.1); CARBON DIOXIDE 28 mmol/L (21-32); CHLORIDE 109 mmol/L (98-107); CREATININE 1.2 mg/dL (0.6-1.0); DIRECT BILIRUBIN 0.1 mg/dL (0.0-0.2); GFR 44.8; GLUCOSE 117 mg/dL (70-99); POTASSIUM 4.4 mmol/L (3.5-5.1); SODIUM 142 mmol/L (136-145); TOTAL BILIRUBIN 0.2 mg/dL (0.2-1.0); TOTAL PROTEIN 5.9 g/dL (6.4-8.2)
[2017-06-10 16:13] LABS: ALT (SGPT) < 6 U/L (14-59); VAL ACID 102 mcg/mL (50-100)
[2017-06-10 16:25] VITALS: BP 148/68
[2017-06-10] MEDS: QUEtiapine 100 MG TABLET. PO SCH ×2 (17:30→18:00)
--- NOTE | 2017-06-10 19:58 | PDOC ---
Exam Darvin Demential Exam: Darvin Note: Please also refer to the separate dictated note~for this date of service dictated separately.~Patient seen individually. Discussed the patient with Nursing staff reviewed the chart.~Reviewed interim history and current functioning. Reviewed vital signs,~Labs/ Radiology~and current medications noted below. Continue current treatment with the changes noted in the dictated addendum note Assessment: Vital Signs: Vital Signs Date Time Temp Pulse Resp B/P (MAP) Pulse Ox O2 Delivery O2 Flow Rate FiO2 06/10/17 16:25 97.6 67 20 148/68 (94) 100 Room Air I&O Intake and Output 06/10/17 07:00 Intake Total 820 ml Balance 820 ml Intake Oral 820 ml # Voids 1 Labs: Laboratory Tests Test 06/10/17 15:45 White Blood Count 7.1 x10^3/uL (4.0-11.0) Red Blood Count 3.55 x10^6/uL (3.50-5.40) Hemoglobin 10.9 g/dL (12.0-15.5) L Hematocrit 32.6 % (36.0-47.0) L Mean Corpuscular Volume 92 fL (79-100) Mean Corpuscular Hemoglobin 31 pg (25-35) Mean Corpuscular Hemoglobin Concent 34 g/dL (31-37) Red Cell Distribution Width 15.8 % (11.5-14.5) H Platelet Count 188 x10^3/uL (140-400) Neutrophils (%) (Auto) 53 % (31-73) Lymphocytes (%) (Auto) 37 % (24-48) Monocytes (%) (Auto) 7 % (0-9) Eosinophils (%) (Auto) 2 % (0-3) Basophils (%) (Auto) 0 % (0-3) Neutrophils # (Auto) 3.8 x10^3uL (1.8-7.7) Lymphocytes # (Auto) 2.7 x10^3/uL (1.0-4.8) Monocytes # (Auto) 0.5 x10^3/uL (0.0-1.1) Eosinophils # (Auto) 0.2 x10^3/uL (0.0-0.7) Basophils # (Auto) 0.0 x10^3/uL (0.0-0.2) Sodium Level 142 mmol/L (136-145) Potassium Level 4.4 mmol/L (3.5-5.1) Chloride Level 109 mmol/L (98-107) H Carbon Dioxide Level 28 mmol/L (21-32) Anion Gap 5 (6-14) L Blood Urea Nitrogen 31 mg/dL (7-20) H Creatinine 1.2 mg/dL (0.6-1.0) H Estimated GFR (Cockcroft-Gault) 44.8 BUN/Creatinine Ratio 26 (6-20) H Glucose Level 117 mg/dL (70-99) H Calcium Level 8.7 mg/dL (8.5-10.1) Total Bilirubin 0.2 mg/dL (0.2-1.0) Direct Bilirubin 0.1 mg/dL (0.0-0.2) Aspartate Amino Transferase (AST) 5 U/L (15-37) L Alanine Aminotransferase (ALT) < 6 U/L (14-59) L Alkaline Phosphatase 93 U/L (46-116) Ammonia 68 mcmol/L (11-34) H Total Protein 5.9 g/dL (6.4-8.2) L Albumin 2.8 g/dL (3.4-5.0) L Albumin/Globulin Ratio 0.9 (1.0-1.7) L Valproic Acid Level 102 mcg/mL (50-100) H Valproic Acid Last Dose Date 06/09/17 Valproic Acid Last Dose Time 0900 Current Medications: Meds: Current Medications Acetaminophen (Tylenol) 650 mg PRN Q8HRS PRN PO PAIN Last administered on 20:49; Start 05/29/17 at 14:15 Allopurinol (Zyloprim) 100 mg DAILY PO Last administered on 06/10/17 08:01; Start 05/30/17 at 09:00 Aspirin (Children'S Aspirin) 81 mg DAILY PO Last administered on 06/10/17 07: 59; Start 05/30/17 at 09:00 Levothyroxine Sodium (Synthroid) 25 mcg DAILY06 PO Last administered on 05:28; Start 05/30/17 at 06:00 Nystatin (Nystop) 1 naida PRN BID PRN TP REDNESS; Start 05/29/17 at 14:15 Polyethylene Glycol (miraLAX) 17 gm DAILY PO Last administered on 06/07/17 09: 36; Start 05/30/17 at 09:00 Primidone (Mysoline) 50 mg BID PO Last administered on 06/10/17 08:01; Start 05/29/17 at 21:00 Sennosides (Senna) 8.6 mg BID PO Last administered on 06/09/17 19:32; Start at 21:00 Artificial Tears (Artificial Tears) 1 drop TID OU Last administered on 19:32; Start 05/29/17 at 21:00 Diltiazem HCl (Cardizem) 60 mg BID PO Last administered on 06/06/17 08:35; Start 05/29/17 at 21:00; Stop 06/06/17 at 16:16; Status DC Al Hydroxide/Mg Hydroxide (Mylanta Plus Xs) 15 ml PRN AFTMEALHC PRN PO DYSPEPSIA; Start 05/29/17 at 16:00 Magnesium Hydroxide (Milk Of Magnesia) 2,400 mg PRN QHS PRN PO CONSTIPATION; Start 05/29/17 at 16:00 Lorazepam (Ativan) 0.5 mg PRN Q4HRS PRN PO ANXIETY / AGITATION Last administered on 05/31/17 13:12; Start 05/29/17 at 16:45 Olanzapine (ZyPREXA ZYDIS) 5 mg PRN Q4HRS PRN PO PSYCHOSIS Last administered on 06/01/17 18:37; Start 05/29/17 at 16:45 Divalproex Sodium (Depakote Sprinkles) 500 mg DAILY PO Last administered on 08:58; Start 05/30/17 at 09:00; Stop 05/31/17 at 12:04; Status DC Divalproex Sodium (Depakote Sprinkles) 750 mg QHS PO Last administered on 19:57; Start 05/29/17 at 21:00; Stop 05/31/17 at 12:04; Status DC Quetiapine Fumarate (SEROquel) 150 mg 1700,2100 PO Last administered on 19:25; Start 05/29/17 at 17:00; Stop 06/09/17 at 22:05; Status DC Quetiapine Fumarate (SEROquel) 100 mg BIDWBKFT/ELINA PO ; Start 05/30/17 at 08:00; Stop 05/30/17 at 08:00; Status DC Pneumococcal Polyvalent Vaccine (Pneumovax 23) 0.5 ml ONCE ONCE VAX IM Last administered on 05/30/17 09:08; Start 05/30/17 at 09:00; Stop 05/30/17 at 09:01; Status DC Quetiapine Fumarate (SEROquel) 100 mg DAILY08 PO Last administered on 12:51; Start 05/30/17 at 08:00; Stop 06/01/17 at 18:41; Status DC Quetiapine Fumarate (SEROquel) 200 mg DAILYWLUN PO Last administered on 13:06; Start 05/30/17 at 12:00; Stop 06/03/17 at 19:21; Status DC Divalproex Sodium (Depakote Sprinkles) 1,000 mg QHS PO Last administered on 19:59; Start 05/31/17 at 21:00; Stop 06/03/17 at 09:51; Status DC Divalproex Sodium (Depakote Sprinkles) 750 mg DAILY PO Last administered on 07:58; Start 06/01/17 at 09:00; Stop 06/03/17 at 09:51; Status DC Atorvastatin Calcium (Lipitor) 20 mg QHS PO Last administered on 06/09/17 19: 25; Start 05/31/17 at 21:00 Cyanocobalamin (Vitamin B-12) 1,000 mcg [id number] IM ; Start 06/01/17 at 09:00 Vitamin D (Vitamin D3) 50,000 unit WEEKLY PO Last administered on 06/08/17 08: 40; Start 06/01/17 at 09:00 Quetiapine Fumarate (SEROquel) 50 mg DAILY08 PO Last administered on 06/02/17 08:19; Start 06/02/17 at 08:00; Stop 06/03/17 at 19:22; Status DC Risperidone (RisperDAL) 0.5 mg BID PO Last administered on 06/04/17 08:20; Start 06/01/17 at 21:00; Stop 06/04/17 at 17:55; Status DC Divalproex Sodium (Depakote Sprinkles) 500 mg 1X ONCE PO Last administered on 06/03/17 20:58; Start 06/03/17 at 21:00; Stop 06/03/17 at 21:01; Status DC Divalproex Sodium (Depakote Sprinkles) 500 mg DAILY PO Last administered on 07:59; Start 06/04/17 at 09:00 Divalproex Sodium (Depakote Sprinkles) 750 mg HS PO Last administered on 19:26; Start 06/04/17 at 21:00 Quetiapine Fumarate (SEROquel) 100 mg DAILYWLUN PO Last administered on 14:24; Start 06/04/17 at 12:00; Stop 06/05/17 at 12:01; Status DC Risperidone (RisperDAL) 0.5 mg DAILY PO Last administered on 06/06/17 08:35; Start 06/05/17 at 09:00; Stop 06/06/17 at 18:20; Status DC Risperidone (RisperDAL) 1 mg HS PO Last administered on 06/07/17 19:32; Start 06/04/17 at 21:00; Stop 06/08/17 at 18:30; Status DC Diltiazem HCl (Cardizem 24hr Cd) 120 mg 1X ONCE PO Last administered on 16:59; Start 06/06/17 at 16:30; Stop 06/06/17 at 16:31; Status DC Diltiazem HCl (Cardizem 24hr Cd) 120 mg DAILY PO Last administered on 07:59; Start 06/07/17 at 09:00 Risperidone (RisperDAL) 1 mg DAILY PO Last administered on 06/10/17 08:01; Start 06/07/17 at 09:00 Risperidone (RisperDAL) 1.5 mg HS PO Last administered on 06/09/17 19:25; Start 06/08/17 at 21:00 Quetiapine Fumarate (SEROquel) 100 mg QHS PO ; Start 06/10/17 at 21:00; Stop at 21:01 Quetiapine Fumarate (SEROquel) 150 mg QPM PO Last administered on 06/10/17t 17: 30; Start 06/10/17 at 17:00; Stop 06/12/17 at 17:01 Quetiapine Fumarate (SEROquel) 100 mg BID@1700,2100 PO ; Start 06/13/17 at 17:00 Active Scripts Active Reported Lorazepam 0.5 Mg Tablet 1 Tab PO PRN Q4HRS PRN Zyprexa Zydis (Olanzapine) 5 Mg Tab.rapdis 5 Mg PO Q4HRS PRN Olanzapine Inj (Olanzapine) 10 Mg Vial 10 Mg IM PRN Q4HRS PRN Seroquel (Quetiapine Fumarate) 50 Mg Tablet 3 Tab PO BID17,21 Seroquel (Quetiapine Fumarate) 100 Mg Tablet 1 Tab PO BIDWBKFT/ELINA Primidone 50 Mg Tablet 50 Mg PO BID Depakote Sprinkle (Divalproex Sodium) 125 Mg Cap.sprink 750 Mg PO QHS Depakote Sprinkle (Divalproex Sodium) 125 Mg Cap.sprink 500 Mg PO DAILY Nystatin 15 Gm Powder 1 Naida TP BID PRN Diltiazem Hcl Tablet (Diltiazem Hcl) 60 Mg Tablet 60 Mg PO BID Tylenol (Acetaminophen) 325 Mg Tablet 2 Tab PO PRN Q8HRS PRN Artificial Tears Eye Drops (Dextran 70/Hypromellose) 15 Ml Drops 1 Drop EACHEYE TID Zyloprim (Allopurinol) 100 Mg Tablet 100 Mg PO DAILY Synthroid (Levothyroxine Sodium) 25 Mcg Tablet 1 Tab PO DAILY06 Senokot (Sennosides) 8.6 Mg Tablet 1 Tab PO BID Miralax (Polyethylene Glycol 3350) 17 Gm Powd.pack 1 Packet PO DAILY Aspirin 81 Mg Tab.chew 81 Mg PO DAILY Diagnosis: Problems: (1) Dementia (2) Schizoaffective disorder (3) Anxiety disorder (4) Impulse control disorder CARLA HOWARD MD Jun 10, 2017 19:58
[2017-06-10] MEDS: ATORVASTATIN CALCIUM 20 MG TABLET PO SCH (20:19)
[2017-06-10] MEDS: risperiDONE 1 MG TABLET. PO SCH (20:20)
[2017-06-10] MEDS: QUEtiapine 25 MG TABLET. PO SCH (20:23)
--- NOTE | 2017-06-11 00:34 | PN ---
DATE: 06/09/2017 SUBJECTIVE: This is a late entry 06/09/2017, covers elements not covered in my initial note of 06/09/2017. I met with the patient evening of 06/09/2017. The patient took her medications, compliant, calmer, less psychotic, less delusional, and less agitated. REVIEW OF SYSTEMS: Ambulation impaired in wheelchair. Complains of some sedation. No CV, , pulmonary, or eye system symptoms on review. MENTAL STATUS EXAM: Oriented to herself and situation. Speech moderate latency and often responses monosyllabic. Insight limited, judgment marginal, language function intact, and attention span short. Mood, affect, and lability is improved and less psychotic. LABORATORY DATA: Reviewed. IMPRESSION: Unchanged from initial note. PLAN: Continue Risperdal total of 2.5 mg a day and Depakote at current dosages. Labs to be repeated 06/10/2017 to make sure level is therapeutic and Seroquel will be reduced ____ dosage from 150 down to 100 and in three days ____ 150 mg dosage will be reduced down as well to 100. We will taper it further thereafter to avoid using two atypical antipsychotics. CARLA HOWARD MD DR: MOISES/tamera JOB#: [id number] / [id number]
[2017-06-11] MEDS: LEVOTHYROXINE 25 MCG TABLET. PO SCH (05:58)
[2017-06-11 06:15] VITALS: BP 141/70
[2017-06-11] MEDS: ALLOPURINOL 100 MG TABLET. PO SCH (07:18)
[2017-06-11] MEDS: PRIMIDONE 50 MG TABLET PO SCH ×2 (07:19→19:25)
[2017-06-11] MEDS: risperiDONE 0.5 MG TABLET. PO SCH (07:20)
[2017-06-11] MEDS: ASPIRIN 81 MG TAB.CHEW PO SCH (07:20)
[2017-06-11] MEDS: SENNOSIDES 8.6 MG TABLET PO SCH ×2 (07:20→19:25)
[2017-06-11] MEDS: POLYETHYLENE GLYCOL 3350 17 GM PACKET. PO SCH (07:21)
[2017-06-11] MEDS: DIVALPROEX 125 MG CAP.SPRINK PO SCH ×2 (07:21→19:25)
[2017-06-11] MEDS: POLYVINYL ALCOHOL 1.4% OPHTH SOLUTION 15ML BOTTLE. OU SCH ×3 (07:23→19:24)
[2017-06-11] MEDS: MAGNESIUM HYDROXIDE 2,400 MG/30 ML ORAL.SUSP. PO PRN (08:39)
[2017-06-11 16:08] VITALS: BP 158/92
[2017-06-11] MEDS: QUEtiapine 100 MG TABLET. PO SCH (17:33)
[2017-06-11] MEDS: ATORVASTATIN CALCIUM 20 MG TABLET PO SCH (19:25)
[2017-06-11] MEDS: risperiDONE 1 MG TABLET. PO SCH (19:25)
[2017-06-11] MEDS: QUEtiapine 25 MG TABLET. PO SCH (19:28)
--- NOTE | 2017-06-11 19:55 | PDOC ---
Exam Darvin Demential Exam: Darvin Note: Please also refer to the separate dictated note~for this date of service dictated separately.~Patient seen individually. Discussed the patient with Nursing staff reviewed the chart.~Reviewed interim history and current functioning. Reviewed vital signs,~Labs/ Radiology~and current medications noted below. Continue current treatment with the changes noted in the dictated addendum note Assessment: Vital Signs: Vital Signs Date Time Temp Pulse Resp B/P (MAP) Pulse Ox O2 Delivery O2 Flow Rate FiO2 06/11/17 16:08 97.1 68 18 158/92 (114) 06/11/17 06:15 97 06/10/17 16:25 Room Air I&O Intake and Output 06/11/17 06:59 Intake Total 1480 ml Balance 1480 ml Intake Oral 1480 ml # Voids 2 Current Medications: Meds: Current Medications Acetaminophen (Tylenol) 650 mg PRN Q8HRS PRN PO PAIN Last administered on 20:49; Start 05/29/17 at 14:15 Allopurinol (Zyloprim) 100 mg DAILY PO Last administered on 06/11/17 07:18; Start 05/30/17 at 09:00 Aspirin (Children'S Aspirin) 81 mg DAILY PO Last administered on 06/11/17 07: 20; Start 05/30/17 at 09:00 Levothyroxine Sodium (Synthroid) 25 mcg DAILY06 PO Last administered on 05:58; Start 05/30/17 at 06:00 Nystatin (Nystop) 1 naida PRN BID PRN TP REDNESS; Start 05/29/17 at 14:15 Polyethylene Glycol (miraLAX) 17 gm DAILY PO Last administered on 06/11/17 07: 21; Start 05/30/17 at 09:00 Primidone (Mysoline) 50 mg BID PO Last administered on 06/11/17 19:25; Start 05/29/17 at 21:00 Sennosides (Senna) 8.6 mg BID PO Last administered on 06/11/17 19:25; Start at 21:00 Artificial Tears (Artificial Tears) 1 drop TID OU Last administered on 19:24; Start 05/29/17 at 21:00 Diltiazem HCl (Cardizem) 60 mg BID PO Last administered on 06/06/17 08:35; Start 05/29/17 at 21:00; Stop 06/06/17 at 16:16; Status DC Al Hydroxide/Mg Hydroxide (Mylanta Plus Xs) 15 ml PRN AFTMEALHC PRN PO DYSPEPSIA; Start 05/29/17 at 16:00 Magnesium Hydroxide (Milk Of Magnesia) 2,400 mg PRN QHS PRN PO CONSTIPATION Last administered on 06/11/17 08:39; Start 05/29/17 at 16:00 Lorazepam (Ativan) 0.5 mg PRN Q4HRS PRN PO ANXIETY / AGITATION Last administered on 05/31/17 13:12; Start 05/29/17 at 16:45 Olanzapine (ZyPREXA ZYDIS) 5 mg PRN Q4HRS PRN PO PSYCHOSIS Last administered on 06/01/17 18:37; Start 05/29/17 at 16:45 Divalproex Sodium (Depakote Sprinkles) 500 mg DAILY PO Last administered on 08:58; Start 05/30/17 at 09:00; Stop 05/31/17 at 12:04; Status DC Divalproex Sodium (Depakote Sprinkles) 750 mg QHS PO Last administered on 19:57; Start 05/29/17 at 21:00; Stop 05/31/17 at 12:04; Status DC Quetiapine Fumarate (SEROquel) 150 mg 1700,2100 PO Last administered on 19:25; Start 05/29/17 at 17:00; Stop 06/09/17 at 22:05; Status DC Quetiapine Fumarate (SEROquel) 100 mg BIDWBKFT/ELINA PO ; Start 05/30/17 at 08:00; Stop 05/30/17 at 08:00; Status DC Pneumococcal Polyvalent Vaccine (Pneumovax 23) 0.5 ml ONCE ONCE VAX IM Last administered on 05/30/17 09:08; Start 05/30/17 at 09:00; Stop 05/30/17 at 09:01; Status DC Quetiapine Fumarate (SEROquel) 100 mg DAILY08 PO Last administered on 12:51; Start 05/30/17 at 08:00; Stop 06/01/17 at 18:41; Status DC Quetiapine Fumarate (SEROquel) 200 mg DAILYWLUN PO Last administered on 13:06; Start 05/30/17 at 12:00; Stop 06/03/17 at 19:21; Status DC Divalproex Sodium (Depakote Sprinkles) 1,000 mg QHS PO Last administered on 19:59; Start 05/31/17 at 21:00; Stop 06/03/17 at 09:51; Status DC Divalproex Sodium (Depakote Sprinkles) 750 mg DAILY PO Last administered on 07:58; Start 06/01/17 at 09:00; Stop 06/03/17 at 09:51; Status DC Atorvastatin Calcium (Lipitor) 20 mg QHS PO Last administered on 06/11/17 19: 25; Start 05/31/17 at 21:00 Cyanocobalamin (Vitamin B-12) 1,000 mcg [id number] IM ; Start 06/01/17 at 09:00 Vitamin D (Vitamin D3) 50,000 unit WEEKLY PO Last administered on 06/08/17 08: 40; Start 06/01/17 at 09:00 Quetiapine Fumarate (SEROquel) 50 mg DAILY08 PO Last administered on 06/02/17 08:19; Start 06/02/17 at 08:00; Stop 06/03/17 at 19:22; Status DC Risperidone (RisperDAL) 0.5 mg BID PO Last administered on 06/04/17 08:20; Start 06/01/17 at 21:00; Stop 06/04/17 at 17:55; Status DC Divalproex Sodium (Depakote Sprinkles) 500 mg 1X ONCE PO Last administered on 06/03/17 20:58; Start 06/03/17 at 21:00; Stop 06/03/17 at 21:01; Status DC Divalproex Sodium (Depakote Sprinkles) 500 mg DAILY PO Last administered on 07:21; Start 06/04/17 at 09:00 Divalproex Sodium (Depakote Sprinkles) 750 mg HS PO Last administered on 19:25; Start 06/04/17 at 21:00 Quetiapine Fumarate (SEROquel) 100 mg DAILYWLUN PO Last administered on 14:24; Start 06/04/17 at 12:00; Stop 06/05/17 at 12:01; Status DC Risperidone (RisperDAL) 0.5 mg DAILY PO Last administered on 06/06/17 08:35; Start 06/05/17 at 09:00; Stop 06/06/17 at 18:20; Status DC Risperidone (RisperDAL) 1 mg HS PO Last administered on 06/07/17 19:32; Start 06/04/17 at 21:00; Stop 06/08/17 at 18:30; Status DC Diltiazem HCl (Cardizem 24hr Cd) 120 mg 1X ONCE PO Last administered on 16:59; Start 06/06/17 at 16:30; Stop 06/06/17 at 16:31; Status DC Diltiazem HCl (Cardizem 24hr Cd) 120 mg DAILY PO Last administered on 07:20; Start 06/07/17 at 09:00 Risperidone (RisperDAL) 1 mg DAILY PO Last administered on 06/11/17 07:20; Start 06/07/17 at 09:00 Risperidone (RisperDAL) 1.5 mg HS PO Last administered on 06/11/17 19:25; Start 06/08/17 at 21:00 Quetiapine Fumarate (SEROquel) 100 mg QHS PO Last administered on 06/11/17 19: 28; Start 06/10/17 at 21:00; Stop 06/12/17 at 21:01 Quetiapine Fumarate (SEROquel) 150 mg QPM PO Last administered on 06/11/17 17: 33; Start 06/10/17 at 17:00; Stop 06/12/17 at 17:01 Quetiapine Fumarate (SEROquel) 100 mg BID@1700,2100 PO ; Start 06/13/17 at 17:00 Active Scripts Active Reported Lorazepam 0.5 Mg Tablet 1 Tab PO PRN Q4HRS PRN Zyprexa Zydis (Olanzapine) 5 Mg Tab.rapdis 5 Mg PO Q4HRS PRN Olanzapine Inj (Olanzapine) 10 Mg Vial 10 Mg IM PRN Q4HRS PRN Seroquel (Quetiapine Fumarate) 50 Mg Tablet 3 Tab PO BID17,21 Seroquel (Quetiapine Fumarate) 100 Mg Tablet 1 Tab PO BIDWBKFT/ELINA Primidone 50 Mg Tablet 50 Mg PO BID Depakote Sprinkle (Divalproex Sodium) 125 Mg Cap.sprink 750 Mg PO QHS Depakote Sprinkle (Divalproex Sodium) 125 Mg Cap.sprink 500 Mg PO DAILY Nystatin 15 Gm Powder 1 Naida TP BID PRN Diltiazem Hcl Tablet (Diltiazem Hcl) 60 Mg Tablet 60 Mg PO BID Tylenol (Acetaminophen) 325 Mg Tablet 2 Tab PO PRN Q8HRS PRN Artificial Tears Eye Drops (Dextran 70/Hypromellose) 15 Ml Drops 1 Drop EACHEYE TID Zyloprim (Allopurinol) 100 Mg Tablet 100 Mg PO DAILY Synthroid (Levothyroxine Sodium) 25 Mcg Tablet 1 Tab PO DAILY06 Senokot (Sennosides) 8.6 Mg Tablet 1 Tab PO BID Miralax (Polyethylene Glycol 3350) 17 Gm Powd.pack 1 Packet PO DAILY Aspirin 81 Mg Tab.chew 81 Mg PO DAILY Diagnosis: Problems: (1) Dementia (2) Schizoaffective disorder (3) Anxiety disorder (4) Impulse control disorder CARLA HOWARD MD Jun 11, 2017 19:55
[2017-06-12] MEDS: LEVOTHYROXINE 25 MCG TABLET. PO SCH (05:05)
[2017-06-12] MEDS: ACETAMINOPHEN 325 MG TABLET PO PRN (05:06)
[2017-06-12 05:59] VITALS: BP 118/67
--- NOTE | 2017-06-12 06:29 | PN ---
DATE: 06/10/2017 This late entry 06/10/2017 covers elements not covered in my initial note of 06/10/2017. I met with the patient evening of 06/10/2017. The patient took all her medications well, has been calm, compliant, less paranoid, delusional. REVIEW OF SYSTEMS: Ambulation impaired in wheelchair. No CV, , pulmonary, eye, ENT system symptoms on review. MENTAL STATUS EXAM: The patient is reasonably oriented. Speech is coherent, has some latency. Eye contact somewhat poor, abstraction fair, computation impaired, language function intact, intellect average, insight improving, judgment intact to standard questioning. LABORATORY DATA: Reviewed. IMPRESSION: Unchanged from initial note. PLAN: Repeat valproic acid level is awaited. We will continue rest of psychotropics, await the repeat level, then adjust as clinically indicated to maintain a therapeutic valproic acid level. Continue Risperdal at a total of 2.5 mg a day. Seroquel is being tapered. CARLA HOWARD MD DR: MOISES/tamera JOB#: [id number] / [id number]
[2017-06-12] MEDS: SENNOSIDES 8.6 MG TABLET PO SCH ×2 (08:12→19:50)
[2017-06-12] MEDS: risperiDONE 0.5 MG TABLET. PO SCH ×2 (08:12→19:56)
[2017-06-12] MEDS: ALLOPURINOL 100 MG TABLET. PO SCH (08:12)
[2017-06-12] MEDS: DIVALPROEX 125 MG CAP.SPRINK PO SCH ×2 (08:12→19:51)
[2017-06-12] MEDS: PRIMIDONE 50 MG TABLET PO SCH ×2 (08:12→19:50)
[2017-06-12] MEDS: ASPIRIN 81 MG TAB.CHEW PO SCH (08:12)
[2017-06-12] MEDS: POLYETHYLENE GLYCOL 3350 17 GM PACKET. PO SCH (08:12)
[2017-06-12] MEDS: POLYVINYL ALCOHOL 1.4% OPHTH SOLUTION 15ML BOTTLE. OU SCH ×3 (08:14→19:52)
[2017-06-12] MEDS: LORazepam 0.5 MG TABLET PO PRN (09:07)
[2017-06-12 16:12] VITALS: BP 165/98
--- NOTE | 2017-06-12 18:52 | PDOC ---
Exam Darvin Demential Exam: Darvin Note: Please also refer to the separate dictated note~for this date of service dictated separately.~Patient seen individually. Discussed the patient with Nursing staff reviewed the chart.~Reviewed interim history and current functioning. Reviewed vital signs,~Labs/ Radiology~and current medications noted below. Continue current treatment with the changes noted in the dictated addendum note Assessment: Vital Signs: Vital Signs Date Time Temp Pulse Resp B/P (MAP) Pulse Ox O2 Delivery O2 Flow Rate FiO2 06/12/17 16:12 97.8 66 20 165/98 (120) 99 06/10/17 16:25 Room Air I&O Intake and Output 06/12/17 07:00 Intake Total 360 ml Balance 360 ml Intake Oral 360 ml Current Medications: Meds: Current Medications Acetaminophen (Tylenol) 650 mg PRN Q8HRS PRN PO PAIN Last administered on 05:06; Start 05/29/17 at 14:15 Allopurinol (Zyloprim) 100 mg DAILY PO Last administered on 06/12/17 08:12; Start 05/30/17 at 09:00 Aspirin (Children'S Aspirin) 81 mg DAILY PO Last administered on 06/12/17 08: 12; Start 05/30/17 at 09:00 Levothyroxine Sodium (Synthroid) 25 mcg DAILY06 PO Last administered on 05:05; Start 05/30/17 at 06:00 Nystatin (Nystop) 1 naida PRN BID PRN TP REDNESS; Start 05/29/17 at 14:15 Polyethylene Glycol (miraLAX) 17 gm DAILY PO Last administered on 06/12/17 08: 12; Start 05/30/17 at 09:00 Primidone (Mysoline) 50 mg BID PO Last administered on 06/12/17 08:12; Start 05/29/17 at 21:00 Sennosides (Senna) 8.6 mg BID PO Last administered on 06/12/17 08:12; Start at 21:00 Artificial Tears (Artificial Tears) 1 drop TID OU Last administered on 13:32; Start 05/29/17 at 21:00 Diltiazem HCl (Cardizem) 60 mg BID PO Last administered on 06/06/17 08:35; Start 05/29/17 at 21:00; Stop 06/06/17 at 16:16; Status DC Al Hydroxide/Mg Hydroxide (Mylanta Plus Xs) 15 ml PRN AFTMEALHC PRN PO DYSPEPSIA; Start 05/29/17 at 16:00 Magnesium Hydroxide (Milk Of Magnesia) 2,400 mg PRN QHS PRN PO CONSTIPATION Last administered on 06/11/17 08:39; Start 05/29/17 at 16:00 Lorazepam (Ativan) 0.5 mg PRN Q4HRS PRN PO ANXIETY / AGITATION Last administered on 06/12/17 09:07; Start 05/29/17 at 16:45 Olanzapine (ZyPREXA ZYDIS) 5 mg PRN Q4HRS PRN PO PSYCHOSIS Last administered on 06/01/17 18:37; Start 05/29/17 at 16:45 Divalproex Sodium (Depakote Sprinkles) 500 mg DAILY PO Last administered on 08:58; Start 05/30/17 at 09:00; Stop 05/31/17 at 12:04; Status DC Divalproex Sodium (Depakote Sprinkles) 750 mg QHS PO Last administered on 19:57; Start 05/29/17 at 21:00; Stop 05/31/17 at 12:04; Status DC Quetiapine Fumarate (SEROquel) 150 mg 1700,2100 PO Last administered on 19:25; Start 05/29/17 at 17:00; Stop 06/09/17 at 22:05; Status DC Quetiapine Fumarate (SEROquel) 100 mg BIDWBKFT/ELINA PO ; Start 05/30/17 at 08:00; Stop 05/30/17 at 08:00; Status DC Pneumococcal Polyvalent Vaccine (Pneumovax 23) 0.5 ml ONCE ONCE VAX IM Last administered on 05/30/17 09:08; Start 05/30/17 at 09:00; Stop 05/30/17 at 09:01; Status DC Quetiapine Fumarate (SEROquel) 100 mg DAILY08 PO Last administered on 12:51; Start 05/30/17 at 08:00; Stop 06/01/17 at 18:41; Status DC Quetiapine Fumarate (SEROquel) 200 mg DAILYWLUN PO Last administered on 13:06; Start 05/30/17 at 12:00; Stop 06/03/17 at 19:21; Status DC Divalproex Sodium (Depakote Sprinkles) 1,000 mg QHS PO Last administered on 19:59; Start 05/31/17 at 21:00; Stop 06/03/17 at 09:51; Status DC Divalproex Sodium (Depakote Sprinkles) 750 mg DAILY PO Last administered on 07:58; Start 06/01/17 at 09:00; Stop 06/03/17 at 09:51; Status DC Atorvastatin Calcium (Lipitor) 20 mg QHS PO Last administered on 06/11/17 19: 25; Start 05/31/17 at 21:00 Cyanocobalamin (Vitamin B-12) 1,000 mcg [id number] IM ; Start 06/01/17 at 09:00 Vitamin D (Vitamin D3) 50,000 unit WEEKLY PO Last administered on 06/08/17 08: 40; Start 06/01/17 at 09:00 Quetiapine Fumarate (SEROquel) 50 mg DAILY08 PO Last administered on 06/02/17 08:19; Start 06/02/17 at 08:00; Stop 06/03/17 at 19:22; Status DC Risperidone (RisperDAL) 0.5 mg BID PO Last administered on 06/04/17 08:20; Start 06/01/17 at 21:00; Stop 06/04/17 at 17:55; Status DC Divalproex Sodium (Depakote Sprinkles) 500 mg 1X ONCE PO Last administered on 06/03/17 20:58; Start 06/03/17 at 21:00; Stop 06/03/17 at 21:01; Status DC Divalproex Sodium (Depakote Sprinkles) 500 mg DAILY PO Last administered on 08:12; Start 06/04/17 at 09:00 Divalproex Sodium (Depakote Sprinkles) 750 mg HS PO Last administered on 19:25; Start 06/04/17 at 21:00 Quetiapine Fumarate (SEROquel) 100 mg DAILYWLUN PO Last administered on 14:24; Start 06/04/17 at 12:00; Stop 06/05/17 at 12:01; Status DC Risperidone (RisperDAL) 0.5 mg DAILY PO Last administered on 06/06/17 08:35; Start 06/05/17 at 09:00; Stop 06/06/17 at 18:20; Status DC Risperidone (RisperDAL) 1 mg HS PO Last administered on 06/07/17 19:32; Start 06/04/17 at 21:00; Stop 06/08/17 at 18:30; Status DC Diltiazem HCl (Cardizem 24hr Cd) 120 mg 1X ONCE PO Last administered on 16:59; Start 06/06/17 at 16:30; Stop 06/06/17 at 16:31; Status DC Diltiazem HCl (Cardizem 24hr Cd) 120 mg DAILY PO Last administered on 08:13; Start 06/07/17 at 09:00 Risperidone (RisperDAL) 1 mg DAILY PO Last administered on 06/12/17 08:12; Start 06/07/17 at 09:00; Stop 06/12/17 at 18:37; Status DC Risperidone (RisperDAL) 1.5 mg HS PO Last administered on 06/11/17 19:25; Start 06/08/17 at 21:00; Stop 06/12/17 at 18:37; Status DC Quetiapine Fumarate (SEROquel) 100 mg QHS PO Last administered on 06/11/17 19: 28; Start 06/10/17 at 21:00; Stop 06/12/17 at 18:42; Status DC Quetiapine Fumarate (SEROquel) 150 mg QPM PO Last administered on 06/11/17 17: 33; Start 06/10/17 at 17:00; Stop 06/12/17 at 17:01; Status DC Quetiapine Fumarate (SEROquel) 100 mg BID@1700,2100 PO ; Start 06/13/17 at 17:00 ; Stop 06/13/17 at 17:00; Status DC Risperidone (RisperDAL) 1.5 mg BID PO ; Start 06/12/17 at 21:00; Status UNV Quetiapine Fumarate (SEROquel) 50 mg QHS PO ; Start 06/12/17 at 21:00; Stop at 23:59; Status UNV Active Scripts Active Reported Lorazepam 0.5 Mg Tablet 1 Tab PO PRN Q4HRS PRN Zyprexa Zydis (Olanzapine) 5 Mg Tab.rapdis 5 Mg PO Q4HRS PRN Olanzapine Inj (Olanzapine) 10 Mg Vial 10 Mg IM PRN Q4HRS PRN Seroquel (Quetiapine Fumarate) 50 Mg Tablet 3 Tab PO BID17,21 Seroquel (Quetiapine Fumarate) 100 Mg Tablet 1 Tab PO BIDWBKFT/ELINA Primidone 50 Mg Tablet 50 Mg PO BID Depakote Sprinkle (Divalproex Sodium) 125 Mg Cap.sprink 750 Mg PO QHS Depakote Sprinkle (Divalproex Sodium) 125 Mg Cap.sprink 500 Mg PO DAILY Nystatin 15 Gm Powder 1 Naida TP BID PRN Diltiazem Hcl Tablet (Diltiazem Hcl) 60 Mg Tablet 60 Mg PO BID Tylenol (Acetaminophen) 325 Mg Tablet 2 Tab PO PRN Q8HRS PRN Artificial Tears Eye Drops (Dextran 70/Hypromellose) 15 Ml Drops 1 Drop EACHEYE TID Zyloprim (Allopurinol) 100 Mg Tablet 100 Mg PO DAILY Synthroid (Levothyroxine Sodium) 25 Mcg Tablet 1 Tab PO DAILY06 Senokot (Sennosides) 8.6 Mg Tablet 1 Tab PO BID Miralax (Polyethylene Glycol 3350) 17 Gm Powd.pack 1 Packet PO DAILY Aspirin 81 Mg Tab.chew 81 Mg PO DAILY Diagnosis: Problems: (1) Schizoaffective disorder (2) Anxiety disorder (3) Impulse control disorder (4) Mild cognitive disorder CARLA HOWARD MD Jun 12, 2017 18:52
[2017-06-12] MEDS: ATORVASTATIN CALCIUM 20 MG TABLET PO SCH (19:49)
[2017-06-12] MEDS: QUEtiapine 50 MG TABLET. PO SCH (19:56)
[2017-06-13] MEDS: LEVOTHYROXINE 25 MCG TABLET. PO SCH (06:02)
[2017-06-13 06:27] VITALS: BP 126/74
--- NOTE | 2017-06-13 08:22 | PN ---
DATE: 06/11/2017 This late entry 06/11/2017 covers elements not covered in my initial note of 06/11/2017. SUBJECTIVE: ____ previous evening quite constipated and wants an enema, staff addressing this symptomatically. REVIEW OF SYSTEMS: Ambulation impaired, in wheelchair. No CV, , pulmonary, eye system symptoms on review other than the constipation. MENTAL STATUS EXAM: Reasonably oriented. Speech, low in volume, coherent, abstraction fair, computation impaired, language function intact, attention span short. Mood and affect and lability is definitely improved. No active suicidal or homicidal ideation. LABORATORY DATA: Reviewed. IMPRESSION: Unchanged from initial note. PLAN: Continue current psychotropics mentioned in my initial note. Valproic acid level, repeat is 102, slightly over the upper limit but clinically adequate for now and she is tolerating it well. Labs otherwise unremarkable. CARLA HOWARD MD DR: MOISES/tamera JOB#: [id number] / [id number]
[2017-06-13] MEDS: risperiDONE 0.5 MG TABLET. PO SCH ×2 (08:30→19:24)
[2017-06-13] MEDS: ALLOPURINOL 100 MG TABLET. PO SCH (08:30)
[2017-06-13] MEDS: DIVALPROEX 125 MG CAP.SPRINK PO SCH ×2 (08:30→19:25)
[2017-06-13] MEDS: POLYETHYLENE GLYCOL 3350 17 GM PACKET. PO SCH (08:30)
[2017-06-13] MEDS: SENNOSIDES 8.6 MG TABLET PO SCH ×2 (08:30→19:24)
[2017-06-13] MEDS: ASPIRIN 81 MG TAB.CHEW PO SCH (08:30)
[2017-06-13] MEDS: PRIMIDONE 50 MG TABLET PO SCH ×2 (08:31→19:24)
[2017-06-13] MEDS: POLYVINYL ALCOHOL 1.4% OPHTH SOLUTION 15ML BOTTLE. OU SCH ×3 (08:32→19:24)
[2017-06-13] MEDS: MAGNESIUM HYDROXIDE 2,400 MG/30 ML ORAL.SUSP. PO PRN ×2 (08:38→20:04)
[2017-06-13] MEDS ORDERED: BISACODYL 10 MG SUPP.RECT PR PRN (16:00)
[2017-06-13 16:31] VITALS: BP 143/80
[2017-06-13] MEDS ORDERED: QUEtiapine 100 MG TABLET. PO SCH (17:00)
--- NOTE | 2017-06-13 18:36 | PDOC ---
Exam Darvin Demential Exam: Darvin Note: Please also refer to the separate dictated note~for this date of service dictated separately.~Patient seen individually. Discussed the patient with Nursing staff reviewed the chart.~Reviewed interim history and current functioning. Reviewed vital signs,~Labs/ Radiology~and current medications noted below. Continue current treatment with the changes noted in the dictated addendum note Assessment: Vital Signs: Vital Signs Date Time Temp Pulse Resp B/P (MAP) Pulse Ox O2 Delivery O2 Flow Rate FiO2 06/13/17 16:31 98.3 69 18 143/80 (101) 99 06/10/17 16:25 Room Air I&O Intake and Output 06/13/17 07:00 Intake Total 1140 ml Balance 1140 ml Intake Oral 1140 ml Current Medications: Meds: Current Medications Acetaminophen (Tylenol) 650 mg PRN Q8HRS PRN PO PAIN Last administered on 05:06; Start 05/29/17 at 14:15 Allopurinol (Zyloprim) 100 mg DAILY PO Last administered on 06/13/17 08:30; Start 05/30/17 at 09:00 Aspirin (Children'S Aspirin) 81 mg DAILY PO Last administered on 06/13/17 08: 30; Start 05/30/17 at 09:00 Levothyroxine Sodium (Synthroid) 25 mcg DAILY06 PO Last administered on 06:02; Start 05/30/17 at 06:00 Nystatin (Nystop) 1 naida PRN BID PRN TP REDNESS; Start 05/29/17 at 14:15 Polyethylene Glycol (miraLAX) 17 gm DAILY PO Last administered on 06/13/17 08: 30; Start 05/30/17 at 09:00 Primidone (Mysoline) 50 mg BID PO Last administered on 06/13/17 08:31; Start 05/29/17 at 21:00 Sennosides (Senna) 8.6 mg BID PO Last administered on 06/13/17 08:30; Start at 21:00 Artificial Tears (Artificial Tears) 1 drop TID OU Last administered on 08:32; Start 05/29/17 at 21:00 Diltiazem HCl (Cardizem) 60 mg BID PO Last administered on 06/06/17 08:35; Start 05/29/17 at 21:00; Stop 06/06/17 at 16:16; Status DC Al Hydroxide/Mg Hydroxide (Mylanta Plus Xs) 15 ml PRN AFTMEALHC PRN PO DYSPEPSIA; Start 05/29/17 at 16:00 Magnesium Hydroxide (Milk Of Magnesia) 2,400 mg PRN QHS PRN PO CONSTIPATION Last administered on 06/13/17 08:38; Start 05/29/17 at 16:00 Lorazepam (Ativan) 0.5 mg PRN Q4HRS PRN PO ANXIETY / AGITATION Last administered on 06/12/17 09:07; Start 05/29/17 at 16:45 Olanzapine (ZyPREXA ZYDIS) 5 mg PRN Q4HRS PRN PO PSYCHOSIS Last administered on 06/01/17 18:37; Start 05/29/17 at 16:45 Divalproex Sodium (Depakote Sprinkles) 500 mg DAILY PO Last administered on 08:58; Start 05/30/17 at 09:00; Stop 05/31/17 at 12:04; Status DC Divalproex Sodium (Depakote Sprinkles) 750 mg QHS PO Last administered on 19:57; Start 05/29/17 at 21:00; Stop 05/31/17 at 12:04; Status DC Quetiapine Fumarate (SEROquel) 150 mg 1700,2100 PO Last administered on 19:25; Start 05/29/17 at 17:00; Stop 06/09/17 at 22:05; Status DC Quetiapine Fumarate (SEROquel) 100 mg BIDWBKFT/ELINA PO ; Start 05/30/17 at 08:00; Stop 05/30/17 at 08:00; Status DC Pneumococcal Polyvalent Vaccine (Pneumovax 23) 0.5 ml ONCE ONCE VAX IM Last administered on 05/30/17 09:08; Start 05/30/17 at 09:00; Stop 05/30/17 at 09:01; Status DC Quetiapine Fumarate (SEROquel) 100 mg DAILY08 PO Last administered on 12:51; Start 05/30/17 at 08:00; Stop 06/01/17 at 18:41; Status DC Quetiapine Fumarate (SEROquel) 200 mg DAILYWLUN PO Last administered on 13:06; Start 05/30/17 at 12:00; Stop 06/03/17 at 19:21; Status DC Divalproex Sodium (Depakote Sprinkles) 1,000 mg QHS PO Last administered on 19:59; Start 05/31/17 at 21:00; Stop 06/03/17 at 09:51; Status DC Divalproex Sodium (Depakote Sprinkles) 750 mg DAILY PO Last administered on 07:58; Start 06/01/17 at 09:00; Stop 06/03/17 at 09:51; Status DC Atorvastatin Calcium (Lipitor) 20 mg QHS PO Last administered on 06/12/17 19: 49; Start 05/31/17 at 21:00 Cyanocobalamin (Vitamin B-12) 1,000 mcg [id number] IM ; Start 06/01/17 at 09:00 Vitamin D (Vitamin D3) 50,000 unit WEEKLY PO Last administered on 06/08/17 08: 40; Start 06/01/17 at 09:00 Quetiapine Fumarate (SEROquel) 50 mg DAILY08 PO Last administered on 06/02/17 08:19; Start 06/02/17 at 08:00; Stop 06/03/17 at 19:22; Status DC Risperidone (RisperDAL) 0.5 mg BID PO Last administered on 06/04/17 08:20; Start 06/01/17 at 21:00; Stop 06/04/17 at 17:55; Status DC Divalproex Sodium (Depakote Sprinkles) 500 mg 1X ONCE PO Last administered on 06/03/17 20:58; Start 06/03/17 at 21:00; Stop 06/03/17 at 21:01; Status DC Divalproex Sodium (Depakote Sprinkles) 500 mg DAILY PO Last administered on 08:30; Start 06/04/17 at 09:00 Divalproex Sodium (Depakote Sprinkles) 750 mg HS PO Last administered on 19:51; Start 06/04/17 at 21:00 Quetiapine Fumarate (SEROquel) 100 mg DAILYWLUN PO Last administered on 14:24; Start 06/04/17 at 12:00; Stop 06/05/17 at 12:01; Status DC Risperidone (RisperDAL) 0.5 mg DAILY PO Last administered on 06/06/17 08:35; Start 06/05/17 at 09:00; Stop 06/06/17 at 18:20; Status DC Risperidone (RisperDAL) 1 mg HS PO Last administered on 06/07/17 19:32; Start 06/04/17 at 21:00; Stop 06/08/17 at 18:30; Status DC Diltiazem HCl (Cardizem 24hr Cd) 120 mg 1X ONCE PO Last administered on 16:59; Start 06/06/17 at 16:30; Stop 06/06/17 at 16:31; Status DC Diltiazem HCl (Cardizem 24hr Cd) 120 mg DAILY PO Last administered on 08:37; Start 06/07/17 at 09:00 Risperidone (RisperDAL) 1 mg DAILY PO Last administered on 06/12/17 08:12; Start 06/07/17 at 09:00; Stop 06/12/17 at 18:37; Status DC Risperidone (RisperDAL) 1.5 mg HS PO Last administered on 06/11/17 19:25; Start 06/08/17 at 21:00; Stop 06/12/17 at 18:37; Status DC Quetiapine Fumarate (SEROquel) 100 mg QHS PO Last administered on 06/11/17 19: 28; Start 06/10/17 at 21:00; Stop 06/12/17 at 18:42; Status DC Quetiapine Fumarate (SEROquel) 150 mg QPM PO Last administered on 06/11/17 17: 33; Start 06/10/17 at 17:00; Stop 06/12/17 at 17:01; Status DC Quetiapine Fumarate (SEROquel) 100 mg BID@1700,2100 PO ; Start 06/13/17 at 17:00 ; Stop 06/13/17 at 17:00; Status DC Risperidone (RisperDAL) 1.5 mg BID PO Last administered on 06/13/17 08:30; Start 06/12/17 at 21:00 Quetiapine Fumarate (SEROquel) 50 mg QHS PO Last administered on 06/12/17 19: 56; Start 06/12/17 at 21:00; Stop 06/13/17 at 23:59 Bisacodyl (Dulcolax Supp) 10 mg PRN DAILY PRN [place] CONSTIPATION; Start 06/13/17 at 16:00 Active Scripts Active Reported Lorazepam 0.5 Mg Tablet 1 Tab PO PRN Q4HRS PRN Zyprexa Zydis (Olanzapine) 5 Mg Tab.rapdis 5 Mg PO Q4HRS PRN Olanzapine Inj (Olanzapine) 10 Mg Vial 10 Mg IM PRN Q4HRS PRN Seroquel (Quetiapine Fumarate) 50 Mg Tablet 3 Tab PO BID17, Seroquel (Quetiapine Fumarate) 100 Mg Tablet 1 Tab PO BIDWBKFT/ELINA Primidone 50 Mg Tablet 50 Mg PO BID Depakote Sprinkle (Divalproex Sodium) 125 Mg Cap.sprink 750 Mg PO QHS Depakote Sprinkle (Divalproex Sodium) 125 Mg Cap.sprink 500 Mg PO DAILY Nystatin 15 Gm Powder 1 Naida TP BID PRN Diltiazem Hcl Tablet (Diltiazem Hcl) 60 Mg Tablet 60 Mg PO BID Tylenol (Acetaminophen) 325 Mg Tablet 2 Tab PO PRN Q8HRS PRN Artificial Tears Eye Drops (Dextran 70/Hypromellose) 15 Ml Drops 1 Drop EACHEYE TID Zyloprim (Allopurinol) 100 Mg Tablet 100 Mg PO DAILY Synthroid (Levothyroxine Sodium) 25 Mcg Tablet 1 Tab PO DAILY06 Senokot (Sennosides) 8.6 Mg Tablet 1 Tab PO BID Miralax (Polyethylene Glycol 3350) 17 Gm Powd.pack 1 Packet PO DAILY Aspirin 81 Mg Tab.chew 81 Mg PO DAILY Diagnosis: Problems: (1) Mild cognitive disorder (2) Impulse control disorder (3) Anxiety disorder (4) Schizoaffective disorder CARLA HOWARD MD Jun 13, 2017 18:36
[2017-06-13] MEDS: QUEtiapine 50 MG TABLET. PO SCH (19:24)
[2017-06-13] MEDS: ATORVASTATIN CALCIUM 20 MG TABLET PO SCH (19:24)
--- NOTE | 2017-06-14 03:19 | PN ---
DATE: 06/12/2017 This late entry, 06/12/2017, covers elements not covered in my initial note of 06/12/2017. Met with the patient evening of 06/12/2017. The patient has been more agitated on 06/12/2017, yelling with cares, screaming, threw water on the floor, aggressive, spit on the nursing staff, had to be moved to the [place] to remove her from the milieu. REVIEW OF SYSTEMS: Ambulation impaired, in wheelchair. No CV, , pulmonary, eye, ENT system symptoms on review. Reliability varies. MENTAL STATUS EXAM: Reasonably oriented. Speech coherent, had some latency, abstraction fair, computation impaired, language function intact. Mood and affect remains labile. Slept 8-1/2 hours previous evening. LABORATORY DATA: Reviewed. IMPRESSION: Unchanged from initial note. PLAN: Increase Risperdal from 1 mg a.m. and 1.5 at bedtime to 1.5 mg twice a day, taper and stop the Seroquel to avoid duplicating to atypical antipsychotics. Continue Depakote at current dosage, level is 102, slightly elevated, but clinically appropriate for now maintained. Rest unchanged. Reviewed drug interactions, risk/benefit ratio favors no further changes of now. CARLA HOWARD MD DR: MOISES/tamera JOB#: [id number] / [id number]
[2017-06-14] MEDS: ACETAMINOPHEN 325 MG TABLET PO PRN (04:13)
[2017-06-14] MEDS: LORazepam 0.5 MG TABLET PO PRN (04:13)
[2017-06-14] MEDS: LEVOTHYROXINE 25 MCG TABLET. PO SCH (06:06)
[2017-06-14 06:19] VITALS: BP 151/71
[2017-06-14] MEDS: POLYETHYLENE GLYCOL 3350 17 GM PACKET. PO SCH (09:04)
[2017-06-14] MEDS: risperiDONE 0.5 MG TABLET. PO SCH ×2 (09:04→19:33)
[2017-06-14] MEDS: SENNOSIDES 8.6 MG TABLET PO SCH ×2 (09:04→19:36)
[2017-06-14] MEDS: PRIMIDONE 50 MG TABLET PO SCH ×2 (09:04→19:33)
[2017-06-14] MEDS: ALLOPURINOL 100 MG TABLET. PO SCH (09:04)
[2017-06-14] MEDS: DIVALPROEX 125 MG CAP.SPRINK PO SCH ×2 (09:05→19:33)
[2017-06-14] MEDS: ASPIRIN 81 MG TAB.CHEW PO SCH (09:05)
[2017-06-14] MEDS: POLYVINYL ALCOHOL 1.4% OPHTH SOLUTION 15ML BOTTLE. OU SCH ×3 (09:06→19:34)
[2017-06-14] MEDS: MAGNESIUM HYDROXIDE 2,400 MG/30 ML ORAL.SUSP. PO PRN (09:36)
[2017-06-14 16:15] VITALS: BP 136/79
[2017-06-14] MEDS: ATORVASTATIN CALCIUM 20 MG TABLET PO SCH (19:33)
--- NOTE | 2017-06-14 20:44 | PDOC ---
Exam Darvin Demential Exam: Darvin Note: Please also refer to the separate dictated note~for this date of service dictated separately.~Patient seen individually. Discussed the patient with Nursing staff reviewed the chart.~Reviewed interim history and current functioning. Reviewed vital signs,~Labs/ Radiology~and current medications noted below. Continue current treatment with the changes noted in the dictated addendum note Assessment: Vital Signs: Vital Signs Date Time Temp Pulse Resp B/P (MAP) Pulse Ox O2 Delivery O2 Flow Rate FiO2 06/14/17 16:15 98.5 69 18 136/79 (98) 98 06/10/17 16:25 Room Air I&O Intake and Output 06/14/17 07:00 Intake Total 1440 ml Balance 1440 ml Intake Oral 1440 ml # Voids 1 # Bowel Movements 1 Current Medications: Meds: Current Medications Acetaminophen (Tylenol) 650 mg PRN Q8HRS PRN PO PAIN Last administered on 04:13; Start 05/29/17 at 14:15 Allopurinol (Zyloprim) 100 mg DAILY PO Last administered on 06/14/17 09:04; Start 05/30/17 at 09:00 Aspirin (Children'S Aspirin) 81 mg DAILY PO Last administered on 06/14/17 09: 05; Start 05/30/17 at 09:00 Levothyroxine Sodium (Synthroid) 25 mcg DAILY06 PO Last administered on 06:06; Start 05/30/17 at 06:00 Nystatin (Nystop) 1 naida PRN BID PRN TP REDNESS; Start 05/29/17 at 14:15 Polyethylene Glycol (miraLAX) 17 gm DAILY PO Last administered on 06/14/17 09: 04; Start 05/30/17 at 09:00 Primidone (Mysoline) 50 mg BID PO Last administered on 06/14/17 19:33; Start 05/29/17 at 21:00 Sennosides (Senna) 8.6 mg BID PO Last administered on 06/14/17 19:36; Start at 21:00 Artificial Tears (Artificial Tears) 1 drop TID OU Last administered on 19:34; Start 05/29/17 at 21:00 Diltiazem HCl (Cardizem) 60 mg BID PO Last administered on 06/06/17 08:35; Start 05/29/17 at 21:00; Stop 06/06/17 at 16:16; Status DC Al Hydroxide/Mg Hydroxide (Mylanta Plus Xs) 15 ml PRN AFTMEALHC PRN PO DYSPEPSIA; Start 05/29/17 at 16:00 Magnesium Hydroxide (Milk Of Magnesia) 2,400 mg PRN QHS PRN PO CONSTIPATION Last administered on 06/14/17 09:36; Start 05/29/17 at 16:00 Lorazepam (Ativan) 0.5 mg PRN Q4HRS PRN PO ANXIETY / AGITATION Last administered on 06/14/17 04:13; Start 05/29/17 at 16:45 Olanzapine (ZyPREXA ZYDIS) 5 mg PRN Q4HRS PRN PO PSYCHOSIS Last administered on 06/01/17 18:37; Start 05/29/17 at 16:45 Divalproex Sodium (Depakote Sprinkles) 500 mg DAILY PO Last administered on 08:58; Start 05/30/17 at 09:00; Stop 05/31/17 at 12:04; Status DC Divalproex Sodium (Depakote Sprinkles) 750 mg QHS PO Last administered on 19:57; Start 05/29/17 at 21:00; Stop 05/31/17 at 12:04; Status DC Quetiapine Fumarate (SEROquel) 150 mg 1700,2100 PO Last administered on 19:25; Start 05/29/17 at 17:00; Stop 06/09/17 at 22:05; Status DC Quetiapine Fumarate (SEROquel) 100 mg BIDWBKFT/ELINA PO ; Start 05/30/17 at 08:00; Stop 05/30/17 at 08:00; Status DC Pneumococcal Polyvalent Vaccine (Pneumovax 23) 0.5 ml ONCE ONCE VAX IM Last administered on 05/30/17 09:08; Start 05/30/17 at 09:00; Stop 05/30/17 at 09:01; Status DC Quetiapine Fumarate (SEROquel) 100 mg DAILY08 PO Last administered on 12:51; Start 05/30/17 at 08:00; Stop 06/01/17 at 18:41; Status DC Quetiapine Fumarate (SEROquel) 200 mg DAILYWLUN PO Last administered on 13:06; Start 05/30/17 at 12:00; Stop 06/03/17 at 19:21; Status DC Divalproex Sodium (Depakote Sprinkles) 1,000 mg QHS PO Last administered on 19:59; Start 05/31/17 at 21:00; Stop 06/03/17 at 09:51; Status DC Divalproex Sodium (Depakote Sprinkles) 750 mg DAILY PO Last administered on 07:58; Start 06/01/17 at 09:00; Stop 06/03/17 at 09:51; Status DC Atorvastatin Calcium (Lipitor) 20 mg QHS PO Last administered on 06/14/17 19: 33; Start 05/31/17 at 21:00 Cyanocobalamin (Vitamin B-12) 1,000 mcg [id number] IM ; Start 06/01/17 at 09:00 Vitamin D (Vitamin D3) 50,000 unit WEEKLY PO Last administered on 06/08/17 08: 40; Start 06/01/17 at 09:00 Quetiapine Fumarate (SEROquel) 50 mg DAILY08 PO Last administered on 06/02/17 08:19; Start 06/02/17 at 08:00; Stop 06/03/17 at 19:22; Status DC Risperidone (RisperDAL) 0.5 mg BID PO Last administered on 06/04/17 08:20; Start 06/01/17 at 21:00; Stop 06/04/17 at 17:55; Status DC Divalproex Sodium (Depakote Sprinkles) 500 mg 1X ONCE PO Last administered on 06/03/17 20:58; Start 06/03/17 at 21:00; Stop 06/03/17 at 21:01; Status DC Divalproex Sodium (Depakote Sprinkles) 500 mg DAILY PO Last administered on 09:05; Start 06/04/17 at 09:00 Divalproex Sodium (Depakote Sprinkles) 750 mg HS PO Last administered on 19:33; Start 06/04/17 at 21:00 Quetiapine Fumarate (SEROquel) 100 mg DAILYWLUN PO Last administered on 14:24; Start 06/04/17 at 12:00; Stop 06/05/17 at 12:01; Status DC Risperidone (RisperDAL) 0.5 mg DAILY PO Last administered on 06/06/17 08:35; Start 06/05/17 at 09:00; Stop 06/06/17 at 18:20; Status DC Risperidone (RisperDAL) 1 mg HS PO Last administered on 06/07/17 19:32; Start 06/04/17 at 21:00; Stop 06/08/17 at 18:30; Status DC Diltiazem HCl (Cardizem 24hr Cd) 120 mg 1X ONCE PO Last administered on 16:59; Start 06/06/17 at 16:30; Stop 06/06/17 at 16:31; Status DC Diltiazem HCl (Cardizem 24hr Cd) 120 mg DAILY PO Last administered on 09:05; Start 06/07/17 at 09:00 Risperidone (RisperDAL) 1 mg DAILY PO Last administered on 06/12/17 08:12; Start 06/07/17 at 09:00; Stop 06/12/17 at 18:37; Status DC Risperidone (RisperDAL) 1.5 mg HS PO Last administered on 06/11/17 19:25; Start 06/08/17 at 21:00; Stop 06/12/17 at 18:37; Status DC Quetiapine Fumarate (SEROquel) 100 mg QHS PO Last administered on 06/11/17 19: 28; Start 06/10/17 at 21:00; Stop 06/12/17 at 18:42; Status DC Quetiapine Fumarate (SEROquel) 150 mg QPM PO Last administered on 06/11/17 17: 33; Start 06/10/17 at 17:00; Stop 06/12/17 at 17:01; Status DC Quetiapine Fumarate (SEROquel) 100 mg BID@1700,2100 PO ; Start 06/13/17 at 17:00 ; Stop 06/13/17 at 17:00; Status DC Risperidone (RisperDAL) 1.5 mg BID PO Last administered on 06/14/17 19:33; Start 06/12/17 at 21:00 Quetiapine Fumarate (SEROquel) 50 mg QHS PO Last administered on 06/13/17 19: 24; Start 06/12/17 at 21:00; Stop 06/14/17 at 00:00; Status DC Bisacodyl (Dulcolax Supp) 10 mg PRN DAILY PRN [place] CONSTIPATION; Start 06/13/17 at 16:00 Active Scripts Active Reported Lorazepam 0.5 Mg Tablet 1 Tab PO PRN Q4HRS PRN Zyprexa Zydis (Olanzapine) 5 Mg Tab.rapdis 5 Mg PO Q4HRS PRN Olanzapine Inj (Olanzapine) 10 Mg Vial 10 Mg IM PRN Q4HRS PRN Seroquel (Quetiapine Fumarate) 50 Mg Tablet 3 Tab PO BID17, Seroquel (Quetiapine Fumarate) 100 Mg Tablet 1 Tab PO BIDWBKFT/ELINA Primidone 50 Mg Tablet 50 Mg PO BID Depakote Sprinkle (Divalproex Sodium) 125 Mg Cap.sprink 750 Mg PO QHS Depakote Sprinkle (Divalproex Sodium) 125 Mg Cap.sprink 500 Mg PO DAILY Nystatin 15 Gm Powder 1 Naida TP BID PRN Diltiazem Hcl Tablet (Diltiazem Hcl) 60 Mg Tablet 60 Mg PO BID Tylenol (Acetaminophen) 325 Mg Tablet 2 Tab PO PRN Q8HRS PRN Artificial Tears Eye Drops (Dextran 70/Hypromellose) 15 Ml Drops 1 Drop EACHEYE TID Zyloprim (Allopurinol) 100 Mg Tablet 100 Mg PO DAILY Synthroid (Levothyroxine Sodium) 25 Mcg Tablet 1 Tab PO DAILY06 Senokot (Sennosides) 8.6 Mg Tablet 1 Tab PO BID Miralax (Polyethylene Glycol 3350) 17 Gm Powd.pack 1 Packet PO DAILY Aspirin 81 Mg Tab.chew 81 Mg PO DAILY Diagnosis: Problems: (1) Dementia (2) Schizoaffective disorder (3) Anxiety disorder (4) Impulse control disorder CARLA HOWARD MD Jun 14, 2017 20:44
[2017-06-14] MEDS ORDERED: ATOR20TA58 PO (22:13)
[2017-06-14] MEDS ORDERED: BISA10SU2 RC (22:13)
[2017-06-14] MEDS ORDERED: MAGN400O7 PO (22:22)
[2017-06-14] MEDS ORDERED: MAG30ORA2 PO (22:22)
[2017-06-14] MEDS ORDERED: DILT120C80 PO (22:27)
[2017-06-14] MEDS ORDERED: RISP0.5T3 PO (22:29)
--- NOTE | 2017-06-15 01:04 | PN ---
DATE: 06/13/2017 This late entry for 06/13/2017 covers elements not covered in my initial note of 06/13/2017. SUBJECTIVE: I met with the patient in the evening of 06/13/2017. Per nursing report, the patient has been pleasant. She is not talking about dipping cyanide and motor oil in her psychotropics as she was initially. REVIEW OF SYSTEMS: Ambulation impaired, in wheelchair. No CV, , pulmonary, eye system symptoms on review. MENTAL STATUS EXAM: Oriented to herself and situation. Speech has some latency, often responses monosyllabic, coherent. Abstraction fair, computation impaired, language function intact. Mood and affect is improved, much less psychotic. No suicidal or homicidal ideation. IMPRESSION: Unchanged from initial note. PLAN: Continue current psychotropics mentioned in my initial note. Valproic acid level is slightly above therapeutic, but clinically unremarkable. Adjust further as clinically indicated. Reviewed drug interactions. Risk/benefit ratio favors no change. CARLA HOWARD MD DR: MOISES/tamera JOB#: [id number] / [id number]
[2017-06-15] MEDS: LEVOTHYROXINE 25 MCG TABLET. PO SCH (05:58)
[2017-06-15 06:05] VITALS: BP 159/79
[2017-06-15] MEDS: POLYETHYLENE GLYCOL 3350 17 GM PACKET. PO SCH (09:49)
[2017-06-15] MEDS: ASPIRIN 81 MG TAB.CHEW PO SCH (09:49)
[2017-06-15] MEDS: DIVALPROEX 125 MG CAP.SPRINK PO SCH ×2 (09:50→19:39)
[2017-06-15] MEDS: risperiDONE 0.5 MG TABLET. PO SCH ×2 (09:50→19:39)
[2017-06-15] MEDS: ALLOPURINOL 100 MG TABLET. PO SCH (09:50)
[2017-06-15] MEDS: PRIMIDONE 50 MG TABLET PO SCH ×2 (09:50→19:39)
[2017-06-15] MEDS: SENNOSIDES 8.6 MG TABLET PO SCH ×2 (09:50→19:39)
[2017-06-15] MEDS: CHOLECALCIFEROL (VITAMIN D3) 50,000 UNIT CAPSULE PO SCH (09:51)
[2017-06-15] MEDS: POLYVINYL ALCOHOL 1.4% OPHTH SOLUTION 15ML BOTTLE. OU SCH ×3 (09:51→19:40)
--- NOTE | 2017-06-15 10:17 | PDOC ---
Exam Darvin Demential Exam: Darvin Note: Please also refer to the separate dictated note~for this date of service dictated separately.~Patient seen individually. Discussed the patient with Nursing staff reviewed the chart.~Reviewed interim history and current functioning. Reviewed vital signs,~Labs/ Radiology~and current medications noted below. Continue current treatment with the changes noted in the dictated addendum note Assessment: Vital Signs: Vital Signs Date Time Temp Pulse Resp B/P (MAP) Pulse Ox O2 Delivery O2 Flow Rate FiO2 06/15/17 09:50 68 159/79 06/15/17 06:05 97.7 18 97 06/10/17 16:25 Room Air I&O Intake and Output 06/15/17 06:59 Intake Total 1080 ml Balance 1080 ml Intake Oral 1080 ml # Bowel Movements 1 Current Medications: Meds: Current Medications Acetaminophen (Tylenol) 650 mg PRN Q8HRS PRN PO PAIN Last administered on 04:13; Start 05/29/17 at 14:15 Allopurinol (Zyloprim) 100 mg DAILY PO Last administered on 06/15/17 09:50; Start 05/30/17 at 09:00 Aspirin (Children'S Aspirin) 81 mg DAILY PO Last administered on 06/15/17 09: 49; Start 05/30/17 at 09:00 Levothyroxine Sodium (Synthroid) 25 mcg DAILY06 PO Last administered on 05:58; Start 05/30/17 at 06:00 Nystatin (Nystop) 1 naida PRN BID PRN TP REDNESS; Start 05/29/17 at 14:15 Polyethylene Glycol (miraLAX) 17 gm DAILY PO Last administered on 06/15/17 09: 49; Start 05/30/17 at 09:00 Primidone (Mysoline) 50 mg BID PO Last administered on 06/15/17 09:50; Start 05/29/17 at 21:00 Sennosides (Senna) 8.6 mg BID PO Last administered on 06/15/17 09:50; Start at 21:00 Artificial Tears (Artificial Tears) 1 drop TID OU Last administered on 09:51; Start 05/29/17 at 21:00 Diltiazem HCl (Cardizem) 60 mg BID PO Last administered on 06/06/17 08:35; Start 05/29/17 at 21:00; Stop 06/06/17 at 16:16; Status DC Al Hydroxide/Mg Hydroxide (Mylanta Plus Xs) 15 ml PRN AFTMEALHC PRN PO DYSPEPSIA; Start 05/29/17 at 16:00 Magnesium Hydroxide (Milk Of Magnesia) 2,400 mg PRN QHS PRN PO CONSTIPATION Last administered on 06/14/17 09:36; Start 05/29/17 at 16:00 Lorazepam (Ativan) 0.5 mg PRN Q4HRS PRN PO ANXIETY / AGITATION Last administered on 06/14/17 04:13; Start 05/29/17 at 16:45 Olanzapine (ZyPREXA ZYDIS) 5 mg PRN Q4HRS PRN PO PSYCHOSIS Last administered on 06/01/17 18:37; Start 05/29/17 at 16:45 Divalproex Sodium (Depakote Sprinkles) 500 mg DAILY PO Last administered on 08:58; Start 05/30/17 at 09:00; Stop 05/31/17 at 12:04; Status DC Divalproex Sodium (Depakote Sprinkles) 750 mg QHS PO Last administered on 19:57; Start 05/29/17 at 21:00; Stop 05/31/17 at 12:04; Status DC Quetiapine Fumarate (SEROquel) 150 mg 1700,2100 PO Last administered on 19:25; Start 05/29/17 at 17:00; Stop 06/09/17 at 22:05; Status DC Quetiapine Fumarate (SEROquel) 100 mg BIDWBKFT/ELINA PO ; Start 05/30/17 at 08:00; Stop 05/30/17 at 08:00; Status DC Pneumococcal Polyvalent Vaccine (Pneumovax 23) 0.5 ml ONCE ONCE VAX IM Last administered on 05/30/17 09:08; Start 05/30/17 at 09:00; Stop 05/30/17 at 09:01; Status DC Quetiapine Fumarate (SEROquel) 100 mg DAILY08 PO Last administered on 12:51; Start 05/30/17 at 08:00; Stop 06/01/17 at 18:41; Status DC Quetiapine Fumarate (SEROquel) 200 mg DAILYWLUN PO Last administered on 13:06; Start 05/30/17 at 12:00; Stop 06/03/17 at 19:21; Status DC Divalproex Sodium (Depakote Sprinkles) 1,000 mg QHS PO Last administered on 19:59; Start 05/31/17 at 21:00; Stop 06/03/17 at 09:51; Status DC Divalproex Sodium (Depakote Sprinkles) 750 mg DAILY PO Last administered on 07:58; Start 06/01/17 at 09:00; Stop 06/03/17 at 09:51; Status DC Atorvastatin Calcium (Lipitor) 20 mg QHS PO Last administered on 06/14/17 19: 33; Start 05/31/17 at 21:00 Cyanocobalamin (Vitamin B-12) 1,000 mcg [id number] IM ; Start 06/01/17 at 09:00 Vitamin D (Vitamin D3) 50,000 unit WEEKLY PO Last administered on 06/15/17 09: 51; Start 06/01/17 at 09:00 Quetiapine Fumarate (SEROquel) 50 mg DAILY08 PO Last administered on 06/02/17 08:19; Start 06/02/17 at 08:00; Stop 06/03/17 at 19:22; Status DC Risperidone (RisperDAL) 0.5 mg BID PO Last administered on 06/04/17 08:20; Start 06/01/17 at 21:00; Stop 06/04/17 at 17:55; Status DC Divalproex Sodium (Depakote Sprinkles) 500 mg 1X ONCE PO Last administered on 06/03/17 20:58; Start 06/03/17 at 21:00; Stop 06/03/17 at 21:01; Status DC Divalproex Sodium (Depakote Sprinkles) 500 mg DAILY PO Last administered on 09:50; Start 06/04/17 at 09:00 Divalproex Sodium (Depakote Sprinkles) 750 mg HS PO Last administered on 19:33; Start 06/04/17 at 21:00 Quetiapine Fumarate (SEROquel) 100 mg DAILYWLUN PO Last administered on 14:24; Start 06/04/17 at 12:00; Stop 06/05/17 at 12:01; Status DC Risperidone (RisperDAL) 0.5 mg DAILY PO Last administered on 06/06/17 08:35; Start 06/05/17 at 09:00; Stop 06/06/17 at 18:20; Status DC Risperidone (RisperDAL) 1 mg HS PO Last administered on 06/07/17 19:32; Start 06/04/17 at 21:00; Stop 06/08/17 at 18:30; Status DC Diltiazem HCl (Cardizem 24hr Cd) 120 mg 1X ONCE PO Last administered on 16:59; Start 06/06/17 at 16:30; Stop 06/06/17 at 16:31; Status DC Diltiazem HCl (Cardizem 24hr Cd) 120 mg DAILY PO Last administered on 09:50; Start 06/07/17 at 09:00 Risperidone (RisperDAL) 1 mg DAILY PO Last administered on 06/12/17 08:12; Start 06/07/17 at 09:00; Stop 06/12/17 at 18:37; Status DC Risperidone (RisperDAL) 1.5 mg HS PO Last administered on 06/11/17 19:25; Start 06/08/17 at 21:00; Stop 06/12/17 at 18:37; Status DC Quetiapine Fumarate (SEROquel) 100 mg QHS PO Last administered on 06/11/17 19: 28; Start 06/10/17 at 21:00; Stop 06/12/17 at 18:42; Status DC Quetiapine Fumarate (SEROquel) 150 mg QPM PO Last administered on 06/11/17 17: 33; Start 06/10/17 at 17:00; Stop 06/12/17 at 17:01; Status DC Quetiapine Fumarate (SEROquel) 100 mg BID@1700,2100 PO ; Start 06/13/17 at 17:00 ; Stop 06/13/17 at 17:00; Status DC Risperidone (RisperDAL) 1.5 mg BID PO Last administered on 06/15/17 09:50; Start 06/12/17 at 21:00 Quetiapine Fumarate (SEROquel) 50 mg QHS PO Last administered on 06/13/17 19: 24; Start 06/12/17 at 21:00; Stop 06/14/17 at 00:00; Status DC Bisacodyl (Dulcolax Supp) 10 mg PRN DAILY PRN [place] CONSTIPATION; Start 06/13/17 at 16:00 Active Scripts Active Reported Risperidone 0.5 Mg Tablet 1.5 Mg PO BID Diltiazem 24HR Cd (Diltiazem Hcl) 120 Mg Cap.er.24h 120 Mg PO DAILY Milk Of Magnesia (Magnesium Hydroxide) 400 Mg/5 Ml Oral.susp 2,400 Mg PO PRN QHS PRN Mag-Al Plus Xs Suspension (Mag Hydrox/Al Hydrox/Simeth) 30 Ml Oral.susp 15 Ml PO PRN AFTMEALHC PRN Cyanocobalamin Injection (Cyanocobalamin (Vitamin B-12)) 1,000 Mcg/1 Ml Vial 1, 000 Mcg IM [id number] Vitamin D3 (Cholecalciferol (Vitamin D3)) 50,000 Unit Capsule 50,000 Unit PO WEEKLY Bisacodyl 10 Mg Supp.rect 10 Mg RC PRN DAILY PRN Atorvastatin Calcium 20 Mg Tablet 20 Mg PO QHS Lorazepam 0.5 Mg Tablet 1 Tab PO PRN Q4HRS PRN Zyprexa Zydis (Olanzapine) 5 Mg Tab.rapdis 5 Mg PO Q4HRS PRN Olanzapine Inj (Olanzapine) 10 Mg Vial 10 Mg IM PRN Q4HRS PRN Seroquel (Quetiapine Fumarate) 50 Mg Tablet 3 Tab PO BID17,21 Seroquel (Quetiapine Fumarate) 100 Mg Tablet 1 Tab PO BIDWBKFT/ELINA Primidone 50 Mg Tablet 50 Mg PO BID Depakote Sprinkle (Divalproex Sodium) 125 Mg Cap.sprink 750 Mg PO QHS Depakote Sprinkle (Divalproex Sodium) 125 Mg Cap.sprink 500 Mg PO DAILY Nystatin 15 Gm Powder 1 Naida TP BID PRN Diltiazem Hcl Tablet (Diltiazem Hcl) 60 Mg Tablet 60 Mg PO BID Tylenol (Acetaminophen) 325 Mg Tablet 2 Tab PO PRN Q8HRS PRN Artificial Tears Eye Drops (Dextran 70/Hypromellose) 15 Ml Drops 1 Drop EACHEYE TID Zyloprim (Allopurinol) 100 Mg Tablet 100 Mg PO DAILY Synthroid (Levothyroxine Sodium) 25 Mcg Tablet 1 Tab PO DAILY06 Senokot (Sennosides) 8.6 Mg Tablet 1 Tab PO BID Miralax (Polyethylene Glycol 3350) 17 Gm Powd.pack 1 Packet PO DAILY Aspirin 81 Mg Tab.chew 81 Mg PO DAILY Diagnosis: Problems: (1) Mild cognitive disorder (2) Impulse control disorder (3) Anxiety disorder (4) Schizoaffective disorder CARLA HOWARD MD Jun 15, 2017 10:17
[2017-06-15 15:56] VITALS: BP 163/75
[2017-06-15] MEDS: ATORVASTATIN CALCIUM 20 MG TABLET PO SCH (19:39)
--- NOTE | 2017-06-15 19:56 | PDOC ---
Exam Darvin Demential Exam: Darvin Note: Please also refer to the separate dictated note~for this date of service dictated separately.~Patient seen individually. Discussed the patient with Nursing staff reviewed the chart.~Reviewed interim history and current functioning. Reviewed vital signs,~Labs/ Radiology~and current medications noted below. Continue current treatment with the changes noted in the dictated addendum note Assessment: Vital Signs: Vital Signs Date Time Temp Pulse Resp B/P (MAP) Pulse Ox O2 Delivery O2 Flow Rate FiO2 06/15/17 15:56 98.5 66 20 163/75 (104) 99 06/10/17 16:25 Room Air I&O Intake and Output 06/15/17 06:59 Intake Total 1080 ml Balance 1080 ml Intake Oral 1080 ml # Bowel Movements 1 Current Medications: Meds: Current Medications Acetaminophen (Tylenol) 650 mg PRN Q8HRS PRN PO PAIN Last administered on 04:13; Start 05/29/17 at 14:15 Allopurinol (Zyloprim) 100 mg DAILY PO Last administered on 06/15/17 09:50; Start 05/30/17 at 09:00 Aspirin (Children'S Aspirin) 81 mg DAILY PO Last administered on 06/15/17 09: 49; Start 05/30/17 at 09:00 Levothyroxine Sodium (Synthroid) 25 mcg DAILY06 PO Last administered on 05:58; Start 05/30/17 at 06:00 Nystatin (Nystop) 1 naida PRN BID PRN TP REDNESS; Start 05/29/17 at 14:15 Polyethylene Glycol (miraLAX) 17 gm DAILY PO Last administered on 06/15/17 09: 49; Start 05/30/17 at 09:00 Primidone (Mysoline) 50 mg BID PO Last administered on 06/15/17 19:39; Start 05/29/17 at 21:00 Sennosides (Senna) 8.6 mg BID PO Last administered on 06/15/17 19:39; Start at 21:00 Artificial Tears (Artificial Tears) 1 drop TID OU Last administered on 19:40; Start 05/29/17 at 21:00 Diltiazem HCl (Cardizem) 60 mg BID PO Last administered on 06/06/17 08:35; Start 05/29/17 at 21:00; Stop 06/06/17 at 16:16; Status DC Al Hydroxide/Mg Hydroxide (Mylanta Plus Xs) 15 ml PRN AFTMEALHC PRN PO DYSPEPSIA; Start 05/29/17 at 16:00 Magnesium Hydroxide (Milk Of Magnesia) 2,400 mg PRN QHS PRN PO CONSTIPATION Last administered on 06/14/17 09:36; Start 05/29/17 at 16:00 Lorazepam (Ativan) 0.5 mg PRN Q4HRS PRN PO ANXIETY / AGITATION Last administered on 06/14/17 04:13; Start 05/29/17 at 16:45 Olanzapine (ZyPREXA ZYDIS) 5 mg PRN Q4HRS PRN PO PSYCHOSIS Last administered on 06/01/17 18:37; Start 05/29/17 at 16:45 Divalproex Sodium (Depakote Sprinkles) 500 mg DAILY PO Last administered on 08:58; Start 05/30/17 at 09:00; Stop 05/31/17 at 12:04; Status DC Divalproex Sodium (Depakote Sprinkles) 750 mg QHS PO Last administered on 19:57; Start 05/29/17 at 21:00; Stop 05/31/17 at 12:04; Status DC Quetiapine Fumarate (SEROquel) 150 mg 1700,2100 PO Last administered on 19:25; Start 05/29/17 at 17:00; Stop 06/09/17 at 22:05; Status DC Quetiapine Fumarate (SEROquel) 100 mg BIDWBKFT/ELINA PO ; Start 05/30/17 at 08:00; Stop 05/30/17 at 08:00; Status DC Pneumococcal Polyvalent Vaccine (Pneumovax 23) 0.5 ml ONCE ONCE VAX IM Last administered on 05/30/17 09:08; Start 05/30/17 at 09:00; Stop 05/30/17 at 09:01; Status DC Quetiapine Fumarate (SEROquel) 100 mg DAILY08 PO Last administered on 12:51; Start 05/30/17 at 08:00; Stop 06/01/17 at 18:41; Status DC Quetiapine Fumarate (SEROquel) 200 mg DAILYWLUN PO Last administered on 13:06; Start 05/30/17 at 12:00; Stop 06/03/17 at 19:21; Status DC Divalproex Sodium (Depakote Sprinkles) 1,000 mg QHS PO Last administered on 19:59; Start 05/31/17 at 21:00; Stop 06/03/17 at 09:51; Status DC Divalproex Sodium (Depakote Sprinkles) 750 mg DAILY PO Last administered on 07:58; Start 06/01/17 at 09:00; Stop 06/03/17 at 09:51; Status DC Atorvastatin Calcium (Lipitor) 20 mg QHS PO Last administered on 06/15/17 19: 39; Start 05/31/17 at 21:00 Cyanocobalamin (Vitamin B-12) 1,000 mcg [id number] IM ; Start 06/01/17 at 09:00 Vitamin D (Vitamin D3) 50,000 unit WEEKLY PO Last administered on 06/15/17 09: 51; Start 06/01/17 at 09:00 Quetiapine Fumarate (SEROquel) 50 mg DAILY08 PO Last administered on 06/02/17 08:19; Start 06/02/17 at 08:00; Stop 06/03/17 at 19:22; Status DC Risperidone (RisperDAL) 0.5 mg BID PO Last administered on 06/04/17 08:20; Start 06/01/17 at 21:00; Stop 06/04/17 at 17:55; Status DC Divalproex Sodium (Depakote Sprinkles) 500 mg 1X ONCE PO Last administered on 06/03/17 20:58; Start 06/03/17 at 21:00; Stop 06/03/17 at 21:01; Status DC Divalproex Sodium (Depakote Sprinkles) 500 mg DAILY PO Last administered on 09:50; Start 06/04/17 at 09:00 Divalproex Sodium (Depakote Sprinkles) 750 mg HS PO Last administered on 19:39; Start 06/04/17 at 21:00 Quetiapine Fumarate (SEROquel) 100 mg DAILYWLUN PO Last administered on 14:24; Start 06/04/17 at 12:00; Stop 06/05/17 at 12:01; Status DC Risperidone (RisperDAL) 0.5 mg DAILY PO Last administered on 06/06/17 08:35; Start 06/05/17 at 09:00; Stop 06/06/17 at 18:20; Status DC Risperidone (RisperDAL) 1 mg HS PO Last administered on 06/07/17 19:32; Start 06/04/17 at 21:00; Stop 06/08/17 at 18:30; Status DC Diltiazem HCl (Cardizem 24hr Cd) 120 mg 1X ONCE PO Last administered on 16:59; Start 06/06/17 at 16:30; Stop 06/06/17 at 16:31; Status DC Diltiazem HCl (Cardizem 24hr Cd) 120 mg DAILY PO Last administered on 09:50; Start 06/07/17 at 09:00 Risperidone (RisperDAL) 1 mg DAILY PO Last administered on 06/12/17 08:12; Start 06/07/17 at 09:00; Stop 06/12/17 at 18:37; Status DC Risperidone (RisperDAL) 1.5 mg HS PO Last administered on 06/11/17 19:25; Start 06/08/17 at 21:00; Stop 06/12/17 at 18:37; Status DC Quetiapine Fumarate (SEROquel) 100 mg QHS PO Last administered on 06/11/17 19: 28; Start 06/10/17 at 21:00; Stop 06/12/17 at 18:42; Status DC Quetiapine Fumarate (SEROquel) 150 mg QPM PO Last administered on 06/11/17 17: 33; Start 06/10/17 at 17:00; Stop 06/12/17 at 17:01; Status DC Quetiapine Fumarate (SEROquel) 100 mg BID@1700,2100 PO ; Start 06/13/17 at 17:00 ; Stop 06/13/17 at 17:00; Status DC Risperidone (RisperDAL) 1.5 mg BID PO Last administered on 06/15/17 19:39; Start 06/12/17 at 21:00 Quetiapine Fumarate (SEROquel) 50 mg QHS PO Last administered on 06/13/17 19: 24; Start 06/12/17 at 21:00; Stop 06/14/17 at 00:00; Status DC Bisacodyl (Dulcolax Supp) 10 mg PRN DAILY PRN [place] CONSTIPATION; Start 06/13/17 at 16:00 Active Scripts Active Reported Risperidone 0.5 Mg Tablet 1.5 Mg PO BID Diltiazem 24HR Cd (Diltiazem Hcl) 120 Mg Cap.er.24h 120 Mg PO DAILY Milk Of Magnesia (Magnesium Hydroxide) 400 Mg/5 Ml Oral.susp 2,400 Mg PO PRN QHS PRN Mag-Al Plus Xs Suspension (Mag Hydrox/Al Hydrox/Simeth) 30 Ml Oral.susp 15 Ml PO PRN AFTMEALHC PRN Cyanocobalamin Injection (Cyanocobalamin (Vitamin B-12)) 1,000 Mcg/1 Ml Vial 1, 000 Mcg IM [id number] Vitamin D3 (Cholecalciferol (Vitamin D3)) 50,000 Unit Capsule 50,000 Unit PO WEEKLY Bisacodyl 10 Mg Supp.rect 10 Mg RC PRN DAILY PRN Atorvastatin Calcium 20 Mg Tablet 20 Mg PO QHS Lorazepam 0.5 Mg Tablet 1 Tab PO PRN Q4HRS PRN Zyprexa Zydis (Olanzapine) 5 Mg Tab.rapdis 5 Mg PO Q4HRS PRN Olanzapine Inj (Olanzapine) 10 Mg Vial 10 Mg IM PRN Q4HRS PRN Seroquel (Quetiapine Fumarate) 50 Mg Tablet 3 Tab PO BID17,21 Seroquel (Quetiapine Fumarate) 100 Mg Tablet 1 Tab PO BIDWBKFT/ELINA Primidone 50 Mg Tablet 50 Mg PO BID Depakote Sprinkle (Divalproex Sodium) 125 Mg Cap.sprink 750 Mg PO QHS Depakote Sprinkle (Divalproex Sodium) 125 Mg Cap.sprink 500 Mg PO DAILY Nystatin 15 Gm Powder 1 Naida TP BID PRN Diltiazem Hcl Tablet (Diltiazem Hcl) 60 Mg Tablet 60 Mg PO BID Tylenol (Acetaminophen) 325 Mg Tablet 2 Tab PO PRN Q8HRS PRN Artificial Tears Eye Drops (Dextran 70/Hypromellose) 15 Ml Drops 1 Drop EACHEYE TID Zyloprim (Allopurinol) 100 Mg Tablet 100 Mg PO DAILY Synthroid (Levothyroxine Sodium) 25 Mcg Tablet 1 Tab PO DAILY06 Senokot (Sennosides) 8.6 Mg Tablet 1 Tab PO BID Miralax (Polyethylene Glycol 3350) 17 Gm Powd.pack 1 Packet PO DAILY Aspirin 81 Mg Tab.chew 81 Mg PO DAILY Diagnosis: Problems: (1) Dementia (2) Schizoaffective disorder (3) Anxiety disorder (4) Impulse control disorder CARLA HOWARD MD Jun 15, 2017 19:56
--- NOTE | 2017-06-15 22:46 | PN ---
DATE: 06/15/2017 This is a late entry for 06/14/2017 and covers elements not covered in my initial note of 06/14/2017. The patient staffed at a treatment team meeting with the entire team morning 06/14/2017. Reviewed the patient's history, diagnosis, current psychotropics, lab values, discharge aftercare plans at length. The patient was also seen individually evening of 06/14/2017. Sunday morning, she spit out her medications, gets a little irritable, labile at times, but generally doing gradually better, less psychotic, less verbally aggressive. REVIEW OF SYSTEMS: Ambulation impaired, in a wheelchair. No CV, , pulmonary, eye, ENT system symptoms on review. I met with her over supper and she was trying to eat her neighbors' leftovers. Nursing staff intervened and got her some extra snacks with which she was satisfied. No CV, , eye, ENT or pulmonary system symptoms on review. MENTAL STATUS EXAM: Oriented to herself and situation. Speech has moderate latency, often responses monosyllabic. Abstraction fair, computation impaired, language function intact, attention span short. Mood and affect less labile. LABORATORY DATA: Reviewed. IMPRESSION: Unchanged from initial note. PLAN: Continue current psychotropics. Reviewed drug interactions, risk/benefit ratio favors no further change as of now. Adjust further as clinically indicated. MAN Kranthi HOWARD MD DR: MOISES/tamera JOB#: [id number] / [id number]
--- NOTE | 2017-06-16 04:13 | PN ---
DATE: 06/15/2017 This note covers elements not covered in my initial note of 06/15/2017. I met with the patient individually morning of 06/15/2017. She is being pleasant, cooperative, slept 7 hours. REVIEW OF SYSTEMS: Ambulation impaired, in a wheelchair. No CV, , pulmonary, eye, ENT system symptoms on review. MENTAL STATUS EXAM: The patient is oriented to herself and situation. Speech has some latency, often responses monosyllabic. Abstraction fair, computation impaired, language function intact, attention span short. Mood and affect, much less labile, less psychotic, more redirectable. LABORATORY DATA: Reviewed. IMPRESSION: Unchanged from initial note. PLAN: Continue current psychotropics, reviewed drug contractions, risk/benefit ratio favors no further change as of now. MAN Kranthi HOWARD MD DR: MOISES/tamera JOB#: [id number] / [id number]
[2017-06-16] MEDS: LEVOTHYROXINE 25 MCG TABLET. PO SCH (05:59)
[2017-06-16 06:07] VITALS: BP 128/72
[2017-06-16 08:06] LABS: BASO % 0 % (0-3); EOS # 0.3 x10^3/uL (0.0-0.7); EOS % 3 % (0-3); HEMATOCRIT 36.8 % (36.0-47.0); HEMOGLOBIN 11.9 g/dL (12.0-15.5); LYMPH # 2.6 x10^3/uL (1.0-4.8); LYMPH % 29 % (24-48); MEAN CORPUSCULAR HEMOGLOBIN 31 pg (25-35); MEAN CORPUSCULAR HGB CONC 32 g/dL (31-37); MEAN CORPUSCULAR VOLUME 95 fL (79-100); MONO % 12 % (0-9); NEUT # 4.9 x10^3uL (1.8-7.7); NEUT % 56 % (31-73); PLATELET COUNT 140 x10^3/uL (140-400); RED BLOOD COUNT 3.88 x10^6/uL (3.50-5.40); RED CELL DISTRIBUTION WIDTH 15.5 % (11.5-14.5); WHITE BLOOD COUNT 8.8 x10^3/uL (4.0-11.0)
[2017-06-16 08:14] LABS: ALBUMIN 2.9 g/dL (3.4-5.0); ALBUMIN/GLOBULIN RATIO 0.8 (1.0-1.7); ALK PHOS 100 U/L (46-116); ANION GAP 6 (6-14); AST (SGOT) 7 U/L (15-37); BLOOD UREA NITROGEN 33 mg/dL (7-20); BUN/CREATININE RATIO 25 (6-20); CALCIUM 9.2 mg/dL (8.5-10.1); CARBON DIOXIDE 29 mmol/L (21-32); CHLORIDE 106 mmol/L (98-107); CREATININE 1.3 mg/dL (0.6-1.0); GFR 40.9; GLUCOSE 79 mg/dL (70-99); POTASSIUM 4.4 mmol/L (3.5-5.1); SODIUM 141 mmol/L (136-145); TOTAL BILIRUBIN 0.3 mg/dL (0.2-1.0); TOTAL PROTEIN 6.4 g/dL (6.4-8.2)
[2017-06-16 08:19] LABS: ALT (SGPT) < 6 U/L (14-59)
[2017-06-16] MEDS: ASPIRIN 81 MG TAB.CHEW PO SCH (08:27)
[2017-06-16] MEDS: DIVALPROEX 125 MG CAP.SPRINK PO SCH ×2 (08:27→20:09)
[2017-06-16] MEDS: ALLOPURINOL 100 MG TABLET. PO SCH (08:28)
[2017-06-16] MEDS: SENNOSIDES 8.6 MG TABLET PO SCH ×2 (08:28→20:09)
[2017-06-16] MEDS: risperiDONE 0.5 MG TABLET. PO SCH ×2 (08:28→20:09)
[2017-06-16] MEDS: PRIMIDONE 50 MG TABLET PO SCH ×2 (08:28→20:09)
[2017-06-16] MEDS: POLYETHYLENE GLYCOL 3350 17 GM PACKET. PO SCH (09:41)
[2017-06-16] MEDS: POLYVINYL ALCOHOL 1.4% OPHTH SOLUTION 15ML BOTTLE. OU SCH ×3 (09:41→20:10)
[2017-06-16 15:42] VITALS: BP 151/85
[2017-06-16] MEDS: ATORVASTATIN CALCIUM 20 MG TABLET PO SCH (20:09)
[2017-06-16] MEDS: LORazepam 0.5 MG TABLET PO PRN (21:32)
[2017-06-17] MEDS: LEVOTHYROXINE 25 MCG TABLET. PO SCH (05:08)
[2017-06-17 06:41] VITALS: BP 145/85
[2017-06-17] MEDS: ASPIRIN 81 MG TAB.CHEW PO SCH (08:20)
[2017-06-17] MEDS: DIVALPROEX 125 MG CAP.SPRINK PO SCH ×2 (08:20→19:53)
[2017-06-17] MEDS: POLYETHYLENE GLYCOL 3350 17 GM PACKET. PO SCH (08:21)
[2017-06-17] MEDS: PRIMIDONE 50 MG TABLET PO SCH ×2 (08:21→19:53)
[2017-06-17] MEDS: risperiDONE 0.5 MG TABLET. PO SCH ×2 (08:21→19:53)
[2017-06-17] MEDS: SENNOSIDES 8.6 MG TABLET PO SCH ×2 (08:21→19:53)
[2017-06-17] MEDS: ALLOPURINOL 100 MG TABLET. PO SCH (08:21)
[2017-06-17] MEDS: POLYVINYL ALCOHOL 1.4% OPHTH SOLUTION 15ML BOTTLE. OU SCH ×3 (09:00→19:54)
[2017-06-17 16:45] VITALS: BP 167/75
--- NOTE | 2017-06-17 19:48 | PDOC ---
Exam Darvin Demential Exam: Darvin Note: Please also refer to the separate dictated note~for this date of service dictated separately.~Patient seen individually. Discussed the patient with Nursing staff reviewed the chart.~Reviewed interim history and current functioning. Reviewed vital signs,~Labs/ Radiology~and current medications noted below. Continue current treatment with the changes noted in the dictated addendum note Assessment: Vital Signs: Vital Signs Date Time Temp Pulse Resp B/P (MAP) Pulse Ox O2 Delivery O2 Flow Rate FiO2 06/17/17 16:45 98.2 78 18 167/75 (105) 95 06/16/17 15:42 Room Air I&O Intake and Output 06/17/17 06:59 Intake Total 1320 ml Balance 1320 ml Intake Oral 1320 ml # Bowel Movements 2 Current Medications: Meds: Current Medications Acetaminophen (Tylenol) 650 mg PRN Q8HRS PRN PO PAIN Last administered on 04:13; Start 05/29/17 at 14:15 Allopurinol (Zyloprim) 100 mg DAILY PO Last administered on 06/17/17 08:21; Start 05/30/17 at 09:00 Aspirin (Children'S Aspirin) 81 mg DAILY PO Last administered on 06/17/17 08: 20; Start 05/30/17 at 09:00 Levothyroxine Sodium (Synthroid) 25 mcg DAILY06 PO Last administered on 05:08; Start 05/30/17 at 06:00 Nystatin (Nystop) 1 naida PRN BID PRN TP REDNESS; Start 05/29/17 at 14:15 Polyethylene Glycol (miraLAX) 17 gm DAILY PO Last administered on 06/17/17 08: 21; Start 05/30/17 at 09:00 Primidone (Mysoline) 50 mg BID PO Last administered on 06/17/17 08:21; Start 05/29/17 at 21:00 Sennosides (Senna) 8.6 mg BID PO Last administered on 06/17/17 08:21; Start at 21:00 Artificial Tears (Artificial Tears) 1 drop TID OU Last administered on 20:10; Start 05/29/17 at 21:00 Diltiazem HCl (Cardizem) 60 mg BID PO Last administered on 06/06/17 08:35; Start 05/29/17 at 21:00; Stop 06/06/17 at 16:16; Status DC Al Hydroxide/Mg Hydroxide (Mylanta Plus Xs) 15 ml PRN AFTMEALHC PRN PO DYSPEPSIA; Start 05/29/17 at 16:00 Magnesium Hydroxide (Milk Of Magnesia) 2,400 mg PRN QHS PRN PO CONSTIPATION Last administered on 06/14/17 09:36; Start 05/29/17 at 16:00 Lorazepam (Ativan) 0.5 mg PRN Q4HRS PRN PO ANXIETY / AGITATION Last administered on 06/16/17 21:32; Start 05/29/17 at 16:45 Olanzapine (ZyPREXA ZYDIS) 5 mg PRN Q4HRS PRN PO PSYCHOSIS Last administered on 06/01/17 18:37; Start 05/29/17 at 16:45 Divalproex Sodium (Depakote Sprinkles) 500 mg DAILY PO Last administered on 08:58; Start 05/30/17 at 09:00; Stop 05/31/17 at 12:04; Status DC Divalproex Sodium (Depakote Sprinkles) 750 mg QHS PO Last administered on 19:57; Start 05/29/17 at 21:00; Stop 05/31/17 at 12:04; Status DC Quetiapine Fumarate (SEROquel) 150 mg 1700,2100 PO Last administered on 19:25; Start 05/29/17 at 17:00; Stop 06/09/17 at 22:05; Status DC Quetiapine Fumarate (SEROquel) 100 mg BIDWBKFT/ELINA PO ; Start 05/30/17 at 08:00; Stop 05/30/17 at 08:00; Status DC Pneumococcal Polyvalent Vaccine (Pneumovax 23) 0.5 ml ONCE ONCE VAX IM Last administered on 05/30/17 09:08; Start 05/30/17 at 09:00; Stop 05/30/17 at 09:01; Status DC Quetiapine Fumarate (SEROquel) 100 mg DAILY08 PO Last administered on 12:51; Start 05/30/17 at 08:00; Stop 06/01/17 at 18:41; Status DC Quetiapine Fumarate (SEROquel) 200 mg DAILYWLUN PO Last administered on 13:06; Start 05/30/17 at 12:00; Stop 06/03/17 at 19:21; Status DC Divalproex Sodium (Depakote Sprinkles) 1,000 mg QHS PO Last administered on 19:59; Start 05/31/17 at 21:00; Stop 06/03/17 at 09:51; Status DC Divalproex Sodium (Depakote Sprinkles) 750 mg DAILY PO Last administered on 07:58; Start 06/01/17 at 09:00; Stop 06/03/17 at 09:51; Status DC Atorvastatin Calcium (Lipitor) 20 mg QHS PO Last administered on 06/16/17 20: 09; Start 05/31/17 at 21:00 Cyanocobalamin (Vitamin B-12) 1,000 mcg [id number] IM ; Start 06/01/17 at 09:00 Vitamin D (Vitamin D3) 50,000 unit WEEKLY PO Last administered on 06/15/17 09: 51; Start 06/01/17 at 09:00 Quetiapine Fumarate (SEROquel) 50 mg DAILY08 PO Last administered on 06/02/17 08:19; Start 06/02/17 at 08:00; Stop 06/03/17 at 19:22; Status DC Risperidone (RisperDAL) 0.5 mg BID PO Last administered on 06/04/17 08:20; Start 06/01/17 at 21:00; Stop 06/04/17 at 17:55; Status DC Divalproex Sodium (Depakote Sprinkles) 500 mg 1X ONCE PO Last administered on 06/03/17 20:58; Start 06/03/17 at 21:00; Stop 06/03/17 at 21:01; Status DC Divalproex Sodium (Depakote Sprinkles) 500 mg DAILY PO Last administered on 08:20; Start 06/04/17 at 09:00 Divalproex Sodium (Depakote Sprinkles) 750 mg HS PO Last administered on 20:09; Start 06/04/17 at 21:00 Quetiapine Fumarate (SEROquel) 100 mg DAILYWLUN PO Last administered on 14:24; Start 06/04/17 at 12:00; Stop 06/05/17 at 12:01; Status DC Risperidone (RisperDAL) 0.5 mg DAILY PO Last administered on 06/06/17 08:35; Start 06/05/17 at 09:00; Stop 06/06/17 at 18:20; Status DC Risperidone (RisperDAL) 1 mg HS PO Last administered on 06/07/17 19:32; Start 06/04/17 at 21:00; Stop 06/08/17 at 18:30; Status DC Diltiazem HCl (Cardizem 24hr Cd) 120 mg 1X ONCE PO Last administered on 16:59; Start 06/06/17 at 16:30; Stop 06/06/17 at 16:31; Status DC Diltiazem HCl (Cardizem 24hr Cd) 120 mg DAILY PO Last administered on 08:20; Start 06/07/17 at 09:00 Risperidone (RisperDAL) 1 mg DAILY PO Last administered on 06/12/17 08:12; Start 06/07/17 at 09:00; Stop 06/12/17 at 18:37; Status DC Risperidone (RisperDAL) 1.5 mg HS PO Last administered on 06/11/17 19:25; Start 06/08/17 at 21:00; Stop 06/12/17 at 18:37; Status DC Quetiapine Fumarate (SEROquel) 100 mg QHS PO Last administered on 06/11/17 19: 28; Start 06/10/17 at 21:00; Stop 06/12/17 at 18:42; Status DC Quetiapine Fumarate (SEROquel) 150 mg QPM PO Last administered on 06/11/17 17: 33; Start 06/10/17 at 17:00; Stop 06/12/17 at 17:01; Status DC Quetiapine Fumarate (SEROquel) 100 mg BID@1700,2100 PO ; Start 8/23/17 at 17:00 ; Stop 06/13/17 at 17:00; Status DC Risperidone (RisperDAL) 1.5 mg BID PO Last administered on 06/17/17 08:21; Start 06/12/17 at 21:00 Quetiapine Fumarate (SEROquel) 50 mg QHS PO Last administered on 06/13/17 19: 24; Start 06/12/17 at 21:00; Stop 06/14/17 at 00:00; Status DC Bisacodyl (Dulcolax Supp) 10 mg PRN DAILY PRN [place] CONSTIPATION; Start 06/13/17 at 16:00 Active Scripts Active Reported Risperidone 0.5 Mg Tablet 1.5 Mg PO BID Diltiazem 24HR Cd (Diltiazem Hcl) 120 Mg Cap.er.24h 120 Mg PO DAILY Milk Of Magnesia (Magnesium Hydroxide) 400 Mg/5 Ml Oral.susp 2,400 Mg PO PRN QHS PRN Mag-Al Plus Xs Suspension (Mag Hydrox/Al Hydrox/Simeth) 30 Ml Oral.susp 15 Ml PO PRN AFTMEALHC PRN Cyanocobalamin Injection (Cyanocobalamin (Vitamin B-12)) 1,000 Mcg/1 Ml Vial 1, 000 Mcg IM [id number] Vitamin D3 (Cholecalciferol (Vitamin D3)) 50,000 Unit Capsule 50,000 Unit PO WEEKLY Bisacodyl 10 Mg Supp.rect 10 Mg RC PRN DAILY PRN Atorvastatin Calcium 20 Mg Tablet 20 Mg PO QHS Lorazepam 0.5 Mg Tablet 1 Tab PO PRN Q4HRS PRN Zyprexa Zydis (Olanzapine) 5 Mg Tab.rapdis 5 Mg PO Q4HRS PRN Olanzapine Inj (Olanzapine) 10 Mg Vial 10 Mg IM PRN Q4HRS PRN Seroquel (Quetiapine Fumarate) 50 Mg Tablet 3 Tab PO BID17,21 Seroquel (Quetiapine Fumarate) 100 Mg Tablet 1 Tab PO BIDWBKFT/ELINA Primidone 50 Mg Tablet 50 Mg PO BID Depakote Sprinkle (Divalproex Sodium) 125 Mg Cap.sprink 750 Mg PO QHS Depakote Sprinkle (Divalproex Sodium) 125 Mg Cap.sprink 500 Mg PO DAILY Nystatin 15 Gm Powder 1 Naida TP BID PRN Diltiazem Hcl Tablet (Diltiazem Hcl) 60 Mg Tablet 60 Mg PO BID Tylenol (Acetaminophen) 325 Mg Tablet 2 Tab PO PRN Q8HRS PRN Artificial Tears Eye Drops (Dextran 70/Hypromellose) 15 Ml Drops 1 Drop EACHEYE TID Zyloprim (Allopurinol) 100 Mg Tablet 100 Mg PO DAILY Synthroid (Levothyroxine Sodium) 25 Mcg Tablet 1 Tab PO DAILY06 Senokot (Sennosides) 8.6 Mg Tablet 1 Tab PO BID Miralax (Polyethylene Glycol 3350) 17 Gm Powd.pack 1 Packet PO DAILY Aspirin 81 Mg Tab.chew 81 Mg PO DAILY Diagnosis: Problems: (1) Dementia (2) Schizoaffective disorder (3) Anxiety disorder (4) Impulse control disorder CARLA HOWARD MD Jun 17, 2017 19:48
[2017-06-17] MEDS: ATORVASTATIN CALCIUM 20 MG TABLET PO SCH (19:53)
[2017-06-18] MEDS: LEVOTHYROXINE 25 MCG TABLET. PO SCH (05:20)
[2017-06-18 06:05] VITALS: BP 147/63
[2017-06-18 07:57] LABS: VAL ACID 91 mcg/mL (50-100)
[2017-06-18] MEDS: ASPIRIN 81 MG TAB.CHEW PO SCH (08:54)
[2017-06-18] MEDS: SENNOSIDES 8.6 MG TABLET PO SCH ×2 (08:55→19:37)
[2017-06-18] MEDS: PRIMIDONE 50 MG TABLET PO SCH ×2 (08:55→19:37)
[2017-06-18] MEDS: POLYETHYLENE GLYCOL 3350 17 GM PACKET. PO SCH (08:55)
[2017-06-18] MEDS: risperiDONE 0.5 MG TABLET. PO SCH ×2 (08:55→19:37)
[2017-06-18] MEDS: DIVALPROEX 125 MG CAP.SPRINK PO SCH ×2 (08:55→19:37)
[2017-06-18] MEDS: ALLOPURINOL 100 MG TABLET. PO SCH (08:55)
[2017-06-18] MEDS: POLYVINYL ALCOHOL 1.4% OPHTH SOLUTION 15ML BOTTLE. OU SCH ×3 (09:00→19:38)
--- NOTE | 2017-06-18 13:42 | EKG ---
[address] [address] Test Date: 2017-06-18 Test Time: 12:43:33 Pat Name: ADAIR PRECIADO Department: Room: [address] [place] [address] Gender: F [employer] Operator: ZION : 1950 Requested By: SAMEERA HEATON Order Number: [id number] Reading MD: Steven Fox Measurements Intervals Fowler Rate: 80 P: 63 IN: 146 QRS: 51 QRSD: 68 T: 46 QT: 388 QTc: 451 Interpretive Statements SINUS RHYTHM RBBB Electronically Signed On 06-19-2017 9:44:21 CDT by Steven Fox
[2017-06-18 15:50] VITALS: BP 146/68
[2017-06-18] MEDS: ATORVASTATIN CALCIUM 20 MG TABLET PO SCH (19:37)
--- NOTE | 2017-06-18 19:55 | PDOC ---
Exam Darvin Demential Exam: Darvin Note: Please also refer to the separate dictated note~for this date of service dictated separately.~Patient seen individually. Discussed the patient with Nursing staff reviewed the chart.~Reviewed interim history and current functioning. Reviewed vital signs,~Labs/ Radiology~and current medications noted below. Continue current treatment with the changes noted in the dictated addendum note Assessment: Vital Signs: Vital Signs Date Time Temp Pulse Resp B/P (MAP) Pulse Ox O2 Delivery O2 Flow Rate FiO2 06/18/17 15:50 98.4 72 18 146/68 (94) 96 06/16/17 15:42 Room Air I&O Intake and Output 06/18/17 07:00 Intake Total 1940 ml Balance 1940 ml Intake Oral 1940 ml # Voids 1 Labs: Laboratory Tests Test 06/18/17 07:18 Valproic Acid Level 91 mcg/mL (50-100) Valproic Acid Last Dose Date 06/16/17 Valproic Acid Last Dose Time 2100 Current Medications: Meds: Current Medications Acetaminophen (Tylenol) 650 mg PRN Q8HRS PRN PO PAIN Last administered on 04:13; Start 05/29/17 at 14:15 Allopurinol (Zyloprim) 100 mg DAILY PO Last administered on 06/18/17 08:55; Start 05/30/17 at 09:00 Aspirin (Children'S Aspirin) 81 mg DAILY PO Last administered on 06/18/17 08: 54; Start 05/30/17 at 09:00 Levothyroxine Sodium (Synthroid) 25 mcg DAILY06 PO Last administered on 05:20; Start 05/30/17 at 06:00 Nystatin (Nystop) 1 naida PRN BID PRN TP REDNESS; Start 05/29/17 at 14:15 Polyethylene Glycol (miraLAX) 17 gm DAILY PO Last administered on 06/17/17 08: 21; Start 05/30/17 at 09:00 Primidone (Mysoline) 50 mg BID PO Last administered on 06/18/17 19:37; Start 05/29/17 at 21:00 Sennosides (Senna) 8.6 mg BID PO Last administered on 06/18/17 19:37; Start at 21:00 Artificial Tears (Artificial Tears) 1 drop TID OU Last administered on 19:38; Start 05/29/17 at 21:00 Diltiazem HCl (Cardizem) 60 mg BID PO Last administered on 06/06/17 08:35; Start 05/29/17 at 21:00; Stop 06/06/17 at 16:16; Status DC Al Hydroxide/Mg Hydroxide (Mylanta Plus Xs) 15 ml PRN AFTMEALHC PRN PO DYSPEPSIA; Start 05/29/17 at 16:00 Magnesium Hydroxide (Milk Of Magnesia) 2,400 mg PRN QHS PRN PO CONSTIPATION Last administered on 06/14/17 09:36; Start 05/29/17 at 16:00 Lorazepam (Ativan) 0.5 mg PRN Q4HRS PRN PO ANXIETY / AGITATION Last administered on 06/16/17 21:32; Start 05/29/17 at 16:45 Olanzapine (ZyPREXA ZYDIS) 5 mg PRN Q4HRS PRN PO PSYCHOSIS Last administered on 06/18/17 19:42; Start 05/29/17 at 16:45 Divalproex Sodium (Depakote Sprinkles) 500 mg DAILY PO Last administered on 08:58; Start 05/30/17 at 09:00; Stop 05/31/17 at 12:04; Status DC Divalproex Sodium (Depakote Sprinkles) 750 mg QHS PO Last administered on 19:57; Start 05/29/17 at 21:00; Stop 05/31/17 at 12:04; Status DC Quetiapine Fumarate (SEROquel) 150 mg 1700,2100 PO Last administered on 19:25; Start 05/29/17 at 17:00; Stop 06/09/17 at 22:05; Status DC Quetiapine Fumarate (SEROquel) 100 mg BIDWBKFT/ELINA PO ; Start 05/30/17 at 08:00; Stop 05/30/17 at 08:00; Status DC Pneumococcal Polyvalent Vaccine (Pneumovax 23) 0.5 ml ONCE ONCE VAX IM Last administered on 05/30/17 09:08; Start 05/30/17 at 09:00; Stop 05/30/17 at 09:01; Status DC Quetiapine Fumarate (SEROquel) 100 mg DAILY08 PO Last administered on 12:51; Start 05/30/17 at 08:00; Stop 06/01/17 at 18:41; Status DC Quetiapine Fumarate (SEROquel) 200 mg DAILYWLUN PO Last administered on 13:06; Start 05/30/17 at 12:00; Stop 06/03/17 at 19:21; Status DC Divalproex Sodium (Depakote Sprinkles) 1,000 mg QHS PO Last administered on 19:59; Start 05/31/17 at 21:00; Stop 06/03/17 at 09:51; Status DC Divalproex Sodium (Depakote Sprinkles) 750 mg DAILY PO Last administered on 07:58; Start 06/01/17 at 09:00; Stop 06/03/17 at 09:51; Status DC Atorvastatin Calcium (Lipitor) 20 mg QHS PO Last administered on 06/18/17 19: 37; Start 05/31/17 at 21:00 Cyanocobalamin (Vitamin B-12) 1,000 mcg [id number] IM ; Start 06/01/17 at 09:00 Vitamin D (Vitamin D3) 50,000 unit WEEKLY PO Last administered on 06/15/17 09: 51; Start 06/01/17 at 09:00 Quetiapine Fumarate (SEROquel) 50 mg DAILY08 PO Last administered on 06/02/17 08:19; Start 06/02/17 at 08:00; Stop 06/03/17 at 19:22; Status DC Risperidone (RisperDAL) 0.5 mg BID PO Last administered on 06/04/17 08:20; Start 06/01/17 at 21:00; Stop 06/04/17 at 17:55; Status DC Divalproex Sodium (Depakote Sprinkles) 500 mg 1X ONCE PO Last administered on 06/03/17 20:58; Start 06/03/17 at 21:00; Stop 06/03/17 at 21:01; Status DC Divalproex Sodium (Depakote Sprinkles) 500 mg DAILY PO Last administered on 08:55; Start 06/04/17 at 09:00 Divalproex Sodium (Depakote Sprinkles) 750 mg HS PO Last administered on 19:37; Start 06/04/17 at 21:00 Quetiapine Fumarate (SEROquel) 100 mg DAILYWLUN PO Last administered on 14:24; Start 06/04/17 at 12:00; Stop 06/05/17 at 12:01; Status DC Risperidone (RisperDAL) 0.5 mg DAILY PO Last administered on 06/06/17 08:35; Start 06/05/17 at 09:00; Stop 06/06/17 at 18:20; Status DC Risperidone (RisperDAL) 1 mg HS PO Last administered on 06/07/17 19:32; Start 06/04/17 at 21:00; Stop 06/08/17 at 18:30; Status DC Diltiazem HCl (Cardizem 24hr Cd) 120 mg 1X ONCE PO Last administered on 16:59; Start 06/06/17 at 16:30; Stop 06/06/17 at 16:31; Status DC Diltiazem HCl (Cardizem 24hr Cd) 120 mg DAILY PO Last administered on 08:54; Start 06/07/17 at 09:00 Risperidone (RisperDAL) 1 mg DAILY PO Last administered on 06/12/17 08:12; Start 06/07/17 at 09:00; Stop 06/12/17 at 18:37; Status DC Risperidone (RisperDAL) 1.5 mg HS PO Last administered on 06/11/17 19:25; Start 06/08/17 at 21:00; Stop 06/12/17 at 18:37; Status DC Quetiapine Fumarate (SEROquel) 100 mg QHS PO Last administered on 06/11/17 19: 28; Start 06/10/17 at 21:00; Stop 06/12/17 at 18:42; Status DC Quetiapine Fumarate (SEROquel) 150 mg QPM PO Last administered on 06/11/17 17: 33; Start 8/20/17 at 17:00; Stop 06/12/17 at 17:01; Status DC Quetiapine Fumarate (SEROquel) 100 mg BID@1700,2100 PO ; Start 06/13/17 at 17:00 ; Stop 06/13/17 at 17:00; Status DC Risperidone (RisperDAL) 1.5 mg BID PO Last administered on 06/18/17 19:37; Start 06/12/17 at 21:00 Quetiapine Fumarate (SEROquel) 50 mg QHS PO Last administered on 06/13/17 19: 24; Start 06/12/17 at 21:00; Stop 06/14/17 at 00:00; Status DC Bisacodyl (Dulcolax Supp) 10 mg PRN DAILY PRN [place] CONSTIPATION; Start 06/13/17 at 16:00 Active Scripts Active Reported Risperidone 0.5 Mg Tablet 1.5 Mg PO BID Diltiazem 24HR Cd (Diltiazem Hcl) 120 Mg Cap.er.24h 120 Mg PO DAILY Milk Of Magnesia (Magnesium Hydroxide) 400 Mg/5 Ml Oral.susp 2,400 Mg PO PRN QHS PRN Mag-Al Plus Xs Suspension (Mag Hydrox/Al Hydrox/Simeth) 30 Ml Oral.susp 15 Ml PO PRN AFTMEALHC PRN Cyanocobalamin Injection (Cyanocobalamin (Vitamin B-12)) 1,000 Mcg/1 Ml Vial 1, 000 Mcg IM [id number] Vitamin D3 (Cholecalciferol (Vitamin D3)) 50,000 Unit Capsule 50,000 Unit PO WEEKLY Bisacodyl 10 Mg Supp.rect 10 Mg RC PRN DAILY PRN Atorvastatin Calcium 20 Mg Tablet 20 Mg PO QHS Lorazepam 0.5 Mg Tablet 1 Tab PO PRN Q4HRS PRN Zyprexa Zydis (Olanzapine) 5 Mg Tab.rapdis 5 Mg PO Q4HRS PRN Olanzapine Inj (Olanzapine) 10 Mg Vial 10 Mg IM PRN Q4HRS PRN Seroquel (Quetiapine Fumarate) 50 Mg Tablet 3 Tab PO BID17,21 Seroquel (Quetiapine Fumarate) 100 Mg Tablet 1 Tab PO BIDWBKFT/ELINA Primidone 50 Mg Tablet 50 Mg PO BID Depakote Sprinkle (Divalproex Sodium) 125 Mg Cap.sprink 750 Mg PO QHS Depakote Sprinkle (Divalproex Sodium) 125 Mg Cap.sprink 500 Mg PO DAILY Nystatin 15 Gm Powder 1 Naida TP BID PRN Diltiazem Hcl Tablet (Diltiazem Hcl) 60 Mg Tablet 60 Mg PO BID Tylenol (Acetaminophen) 325 Mg Tablet 2 Tab PO PRN Q8HRS PRN Artificial Tears Eye Drops (Dextran 70/Hypromellose) 15 Ml Drops 1 Drop EACHEYE TID Zyloprim (Allopurinol) 100 Mg Tablet 100 Mg PO DAILY Synthroid (Levothyroxine Sodium) 25 Mcg Tablet 1 Tab PO DAILY06 Senokot (Sennosides) 8.6 Mg Tablet 1 Tab PO BID Miralax (Polyethylene Glycol 3350) 17 Gm Powd.pack 1 Packet PO DAILY Aspirin 81 Mg Tab.chew 81 Mg PO DAILY Diagnosis: Problems: (1) Dementia (2) Schizoaffective disorder (3) Anxiety disorder (4) Impulse control disorder CARLA HOWARD MD Jun 18, 2017 19:55
[2017-06-19] MEDS: LEVOTHYROXINE 25 MCG TABLET. PO SCH (04:25)
[2017-06-19 09:00] VITALS: BP 137/87
[2017-06-19] MEDS: POLYVINYL ALCOHOL 1.4% OPHTH SOLUTION 15ML BOTTLE. OU SCH ×3 (09:00→20:36)
[2017-06-19] MEDS: POLYETHYLENE GLYCOL 3350 17 GM PACKET. PO SCH (09:31)
[2017-06-19] MEDS: risperiDONE 0.5 MG TABLET. PO SCH (09:32)
[2017-06-19] MEDS: SENNOSIDES 8.6 MG TABLET PO SCH ×2 (09:32→20:34)
[2017-06-19] MEDS: PRIMIDONE 50 MG TABLET PO SCH ×2 (09:32→20:34)
[2017-06-19] MEDS: ALLOPURINOL 100 MG TABLET. PO SCH (09:32)
[2017-06-19] MEDS: ASPIRIN 81 MG TAB.CHEW PO SCH (09:32)
[2017-06-19] MEDS: DIVALPROEX 125 MG CAP.SPRINK PO SCH ×2 (09:33→20:33)
--- NOTE | 2017-06-19 11:08 | PN ---
DATE: 06/17/2017 This late entry 06/17/2017 covers elements not covered in my initial note. I met with the patient evening of 06/17/2017. SUBJECTIVE: Per nursing report, the patient remains a little labile at times, but generally better, less paranoid, delusional before bread time. REVIEW OF SYSTEMS: Ambulation impaired, in a wheelchair. No CV, , pulmonary, eye, ENT system symptoms on review. MENTAL STATUS EXAM: Oriented to herself and situation. Speech is coherent, less pressured. Abstraction fair, computation impaired, language function intact, attention span short. Mood and affect, overall ability is improved, less psychotic. LABORATORY DATA: Reviewed. IMPRESSION: Unchanged from initial note. PLAN: Continue current psychotropics. Review drug interactions. Risk/benefit ratio favors no further change. Transition to jail 06/18/2017. MAN Kranthi HOWARD MD DR: MOISES/tamera JOB#: [id number] / [id number]
--- NOTE | 2017-06-19 15:15 | PDOC2 ---
CONSULT Date of Admission DATE: 06/19/17 TIME: 15:00 Reason for Consult: tachycardia/Hx svt Problem List Problems Medical Problems: (1) Dementia Status: Acute (2) Schizoaffective disorder Status: Acute History of Present Illness Ms Winters is a 66-year-old female who was admitted on 05/29/2017 from [facility] in [place], [place] for psychiatric care. Yesterday she was apparently being readied for discharge and began feeling anxious. she reports her heart was racing for about 20 minutes. She was noted to be tachycardic and nursing reports a rate of 180-200 bpm. They were not however able to get an EKG or telemetry reading of her rhythm. The patient reports her heart racing but denies any dyspnea, lightheadedness or other associated symptoms. He psychiatric discharge has since been cancelled due to behaviors. She denies any further symptoms or palpitations. There are no documented episodes of tachycardia in the chart. She reports she is unable to walk due to a fall though it is unclear if she is unable or unwilling. Past Medical History Schizoaffective disorder, supraventricular tachycardia, hypothyroidism, Parkinson disease, hypokalemia, hypertension, COPD, type 2 diabetes, B 12 deficiency, hyperlipidemia, vitamin d deficiency Past Surgical History unknown Family History non contributory Social History wheel chair bound and required total assist, non smoker, no significant ETOH, no illicit drugs Current Medications Current Medications Acetaminophen (Tylenol) 650 mg PRN Q8HRS PRN PO PAIN Last administered on 04:13; Start 05/29/17 at 14:15 Allopurinol (Zyloprim) 100 mg DAILY PO Last administered on 06/19/17 09:32; Start 05/30/17 at 09:00 Aspirin (Children'S Aspirin) 81 mg DAILY PO Last administered on 06/19/17 09: 32; Start 05/30/17 at 09:00 Levothyroxine Sodium (Synthroid) 25 mcg DAILY06 PO Last administered on 04:25; Start 05/30/17 at 06:00 Nystatin (Nystop) 1 naida PRN BID PRN TP REDNESS; Start 05/29/17 at 14:15 Polyethylene Glycol (miraLAX) 17 gm DAILY PO Last administered on 06/19/17 09: 31; Start 05/30/17 at 09:00 Primidone (Mysoline) 50 mg BID PO Last administered on 06/19/17 09:32; Start 05/29/17 at 21:00 Sennosides (Senna) 8.6 mg BID PO Last administered on 06/19/17 09:32; Start at 21:00 Artificial Tears (Artificial Tears) 1 drop TID OU Last administered on 09:00; Start 05/29/17 at 21:00 Diltiazem HCl (Cardizem) 60 mg BID PO Last administered on 06/06/17 08:35; Start 05/29/17 at 21:00; Stop 06/06/17 at 16:16; Status DC Al Hydroxide/Mg Hydroxide (Mylanta Plus Xs) 15 ml PRN AFTMEALHC PRN PO DYSPEPSIA; Start 05/29/17 at 16:00 Magnesium Hydroxide (Milk Of Magnesia) 2,400 mg PRN QHS PRN PO CONSTIPATION Last administered on 06/14/17 09:36; Start 05/29/17 at 16:00 Lorazepam (Ativan) 0.5 mg PRN Q4HRS PRN PO ANXIETY / AGITATION Last administered on 06/16/17 21:32; Start 05/29/17 at 16:45 Olanzapine (ZyPREXA ZYDIS) 5 mg PRN Q4HRS PRN PO PSYCHOSIS Last administered on 06/18/17 19:42; Start 05/29/17 at 16:45 Divalproex Sodium (Depakote Sprinkles) 500 mg DAILY PO Last administered on 08:58; Start 05/30/17 at 09:00; Stop 05/31/17 at 12:04; Status DC Divalproex Sodium (Depakote Sprinkles) 750 mg QHS PO Last administered on 19:57; Start 05/29/17 at 21:00; Stop 05/31/17 at 12:04; Status DC Quetiapine Fumarate (SEROquel) 150 mg 1700,2100 PO Last administered on 19:25; Start 05/29/17 at 17:00; Stop 06/09/17 at 22:05; Status DC Quetiapine Fumarate (SEROquel) 100 mg BIDWBKFT/ELINA PO ; Start 05/30/17 at 08:00; Stop 05/30/17 at 08:00; Status DC Pneumococcal Polyvalent Vaccine (Pneumovax 23) 0.5 ml ONCE ONCE VAX IM Last administered on 05/30/17 09:08; Start 05/30/17 at 09:00; Stop 05/30/17 at 09:01; Status DC Quetiapine Fumarate (SEROquel) 100 mg DAILY08 PO Last administered on 12:51; Start 05/30/17 at 08:00; Stop 06/01/17 at 18:41; Status DC Quetiapine Fumarate (SEROquel) 200 mg DAILYWLUN PO Last administered on 13:06; Start 05/30/17 at 12:00; Stop 06/03/17 at 19:21; Status DC Divalproex Sodium (Depakote Sprinkles) 1,000 mg QHS PO Last administered on 19:59; Start 05/31/17 at 21:00; Stop 06/03/17 at 09:51; Status DC Divalproex Sodium (Depakote Sprinkles) 750 mg DAILY PO Last administered on 07:58; Start 06/01/17 at 09:00; Stop 06/03/17 at 09:51; Status DC Atorvastatin Calcium (Lipitor) 20 mg QHS PO Last administered on 06/18/17 19: 37; Start 05/31/17 at 21:00 Cyanocobalamin (Vitamin B-12) 1,000 mcg [id number] IM ; Start 06/01/17 at 09:00 Vitamin D (Vitamin D3) 50,000 unit WEEKLY PO Last administered on 06/15/17 09: 51; Start 06/01/17 at 09:00 Quetiapine Fumarate (SEROquel) 50 mg DAILY08 PO Last administered on 06/02/17 08:19; Start 06/02/17 at 08:00; Stop 06/03/17 at 19:22; Status DC Risperidone (RisperDAL) 0.5 mg BID PO Last administered on 06/04/17 08:20; Start 06/01/17 at 21:00; Stop 06/04/17 at 17:55; Status DC Divalproex Sodium (Depakote Sprinkles) 500 mg 1X ONCE PO Last administered on 06/03/17 20:58; Start 06/03/17 at 21:00; Stop 06/03/17 at 21:01; Status DC Divalproex Sodium (Depakote Sprinkles) 500 mg DAILY PO Last administered on 09:33; Start 06/04/17 at 09:00 Divalproex Sodium (Depakote Sprinkles) 750 mg HS PO Last administered on 19:37; Start 06/04/17 at 21:00 Quetiapine Fumarate (SEROquel) 100 mg DAILYWLUN PO Last administered on 14:24; Start 06/04/17 at 12:00; Stop 06/05/17 at 12:01; Status DC Risperidone (RisperDAL) 0.5 mg DAILY PO Last administered on 06/06/17 08:35; Start 06/05/17 at 09:00; Stop 06/06/17 at 18:20; Status DC Risperidone (RisperDAL) 1 mg HS PO Last administered on 06/07/17 19:32; Start 06/04/17 at 21:00; Stop 06/08/17 at 18:30; Status DC Diltiazem HCl (Cardizem 24hr Cd) 120 mg 1X ONCE PO Last administered on 16:59; Start 06/06/17 at 16:30; Stop 06/06/17 at 16:31; Status DC Diltiazem HCl (Cardizem 24hr Cd) 120 mg DAILY PO Last administered on 09:32; Start 06/07/17 at 09:00; Stop 06/19/17 at 11:38; Status DC Risperidone (RisperDAL) 1 mg DAILY PO Last administered on 06/12/17 08:12; Start 06/07/17 at 09:00; Stop 06/12/17 at 18:37; Status DC Risperidone (RisperDAL) 1.5 mg HS PO Last administered on 06/11/17 19:25; Start 06/08/17 at 21:00; Stop 06/12/17 at 18:37; Status DC Quetiapine Fumarate (SEROquel) 100 mg QHS PO Last administered on 06/11/17 19: 28; Start 06/10/17 at 21:00; Stop 06/12/17 at 18:42; Status DC Quetiapine Fumarate (SEROquel) 150 mg QPM PO Last administered on 06/11/17 17: 33; Start 06/10/17 at 17:00; Stop 06/12/17 at 17:01; Status DC Quetiapine Fumarate (SEROquel) 100 mg BID@1700,2100 PO ; Start 06/13/17 at 17:00 ; Stop 06/13/17 at 17:00; Status DC Risperidone (RisperDAL) 1.5 mg BID PO Last administered on 06/19/17 09:32; Start 06/12/17 at 21:00 Quetiapine Fumarate (SEROquel) 50 mg QHS PO Last administered on 06/13/17 19: 24; Start 06/12/17 at 21:00; Stop 06/14/17 at 00:00; Status DC Bisacodyl (Dulcolax Supp) 10 mg PRN DAILY PRN [place] CONSTIPATION; Start 06/13/17 at 16:00 Diltiazem HCl (Cardizem 24hr Cd) 180 mg DAILY PO ; Start 06/20/17 at 09:00 Active Scripts Active Reported Risperidone 0.5 Mg Tablet 1.5 Mg PO BID Diltiazem 24HR Cd (Diltiazem Hcl) 120 Mg Cap.er.24h 120 Mg PO DAILY Milk Of Magnesia (Magnesium Hydroxide) 400 Mg/5 Ml Oral.susp 2,400 Mg PO PRN QHS PRN Mag-Al Plus Xs Suspension (Mag Hydrox/Al Hydrox/Simeth) 30 Ml Oral.susp 15 Ml PO PRN AFTMEALHC PRN Cyanocobalamin Injection (Cyanocobalamin (Vitamin B-12)) 1,000 Mcg/1 Ml Vial 1, 000 Mcg IM [id number] Vitamin D3 (Cholecalciferol (Vitamin D3)) 50,000 Unit Capsule 50,000 Unit PO WEEKLY Bisacodyl 10 Mg Supp.rect 10 Mg RC PRN DAILY PRN Atorvastatin Calcium 20 Mg Tablet 20 Mg PO QHS Lorazepam 0.5 Mg Tablet 1 Tab PO PRN Q4HRS PRN Zyprexa Zydis (Olanzapine) 5 Mg Tab.rapdis 5 Mg PO Q4HRS PRN Olanzapine Inj (Olanzapine) 10 Mg Vial 10 Mg IM PRN Q4HRS PRN Seroquel (Quetiapine Fumarate) 50 Mg Tablet 3 Tab PO BID17,21 Seroquel (Quetiapine Fumarate) 100 Mg Tablet 1 Tab PO BIDWBKFT/ELINA Primidone 50 Mg Tablet 50 Mg PO BID Depakote Sprinkle (Divalproex Sodium) 125 Mg Cap.sprink 750 Mg PO QHS Depakote Sprinkle (Divalproex Sodium) 125 Mg Cap.sprink 500 Mg PO DAILY Nystatin 15 Gm Powder 1 Naida TP BID PRN Diltiazem Hcl Tablet (Diltiazem Hcl) 60 Mg Tablet 60 Mg PO BID Tylenol (Acetaminophen) 325 Mg Tablet 2 Tab PO PRN Q8HRS PRN Artificial Tears Eye Drops (Dextran 70/Hypromellose) 15 Ml Drops 1 Drop EACHEYE TID Zyloprim (Allopurinol) 100 Mg Tablet 100 Mg PO DAILY Synthroid (Levothyroxine Sodium) 25 Mcg Tablet 1 Tab PO DAILY06 Senokot (Sennosides) 8.6 Mg Tablet 1 Tab PO BID Miralax (Polyethylene Glycol 3350) 17 Gm Powd.pack 1 Packet PO DAILY Aspirin 81 Mg Tab.chew 81 Mg PO DAILY Allergies: Coded Allergies: codeine (Verified Allergy, Intermediate, 05/31/17) orphenadrine (Verified Allergy, Intermediate, 05/31/17) piroxicam (Verified Allergy, Intermediate, 05/31/17) promethazine (Verified Allergy, Intermediate, 05/31/17) Review of System as per HPI General: Alert, Cooperative, No acute distress HEENT: Atraumatic, EOMI Lungs: Clear to auscultation, Normal air movement Heart: Regular rate, Normal S1, Normal S2, Other (no gallops, clicks or rubs) Abdomen: Normal bowel sounds, Soft Extremities: No cyanosis, Normal pulses Neuro: Normal speech Psych/Mental Status: Other (mood anxious) VITALS Vital Signs Date Time Temp Pulse Resp B/P (MAP) Pulse Ox O2 Delivery O2 Flow Rate FiO2 06/19/17 09:32 72 146/68 06/19/17 09:00 97.7 18 99 06/16/17 15:42 Room Air Labs Laboratory Tests Test 06/18/17 07:18 Valproic Acid (Depakene) Level 91 mcg/mL (50-100) Valproic Acid Last Dose Date 06/16/17 Valproic Acid Last Dose Time 2100 Assessment/Plan 1. reported tachycardia with history of SVT - currently in regular rhythm with rate in the low 70s. Suggest increase Cardizem to 180 as her blood pressure will allow and check echo to rule out structural disease. Consider outpatient event monitoring for a month to eval for atrial burden. 2. hypertension - blood pressure controlled 3. HLD - check lipids if not done Problems: BELKIS PENNY APRN Jun 19, 2017 15:15
[2017-06-19 15:56] VITALS: BP 120/64
--- NOTE | 2017-06-19 16:34 | CARD ---
APPROVED REPORT EXAM: Two-dimensional and M-mode echocardiogram with Doppler and color Doppler. Other Information Quality : Average Rhythm : NSR INDICATION Tachycardia 2D DIMENSIONS Left Atrium(2D)2.2 (1.6-4.0cm)IVSd0.9 (0.7-1.1cm) Aortic Root(2D)2.6 (2.0-3.7cm)LVDd4.6 (3.9-5.9cm) LVOT Diameter2.0 (1.8-2.4cm)PWd1.0 (0.7-1.1cm) LVDs3.4 (2.5-4.0cm)FS (%) 25.4 % SV48.8 mlLVEF(%)50.1 (>50%) Aortic Valve AoV Peak Jacoby.106.0cm/sAoV VTI22.0cm AO Peak GR.4.5mmHgLVOT Peak Jacoby.90.3cm/s LVOT VTI 19.07cmAO Mean GR.3mmHg SHLOMO (VMAX)2.72ur3TXM (VTI)2.59cm2 Mitral Valve MV E Gwvaocty81.9cm/sMV DECEL [id number] MV A Kthrxtgq98.0cm/sMV XQV36go E/A Ratio0.8MV A Tavoxzeb882tq MVA (PHT)3.75cm2 Tricuspid Valve TR P. Afuaukyr703sy/sRAP [id number] TR Peak Gr.73mmXbNVCS44niJh Pulmonary Vein S1 Ksvjktfw88.5cm/sD2 Plburuho07.8cm/s LEFT VENTRICLE The left ventricle is normal size. There is normal left ventricular wall thickness. Left ventricle sy stolic function is normal. The Ejection Fraction is 50-55%. There is normal LV segmental wall motion. The left ventricular diastolic function and filling is normal for age. RIGHT VENTRICLE The right ventricle is normal size. The right ventricular systolic function is normal. ATRIA The left atrium size is normal. The right atrium size is normal. The interatrial septum is intact wit h no evidence for an atrial septal defect or patent foramen ovale as noted on 2-D or Doppler imaging. AORTIC VALVE The aortic valve is normal in structure and function. The aortic valve is trileaflet. Doppler and Col or Flow revealed no significant aortic regurgitation. There is no significant aortic valvular stenosi s. MITRAL VALVE The mitral valve is normal in structure and function. There is no mitral valve stenosis. Doppler and Color Flow revealed no mitral valve regurgitation noted. TRICUSPID VALVE The tricuspid valve is not well visualized. Doppler and Color Flow revealed mild tricuspid regurgitat ion. The PA pressure was estimated at 31 mmHg. There is no tricuspid valve stenosis. PULMONIC VALVE The pulmonic valve is not well visualized. Doppler and Color Flow revealed no pulmonic valvular regur gitation. There is no pulmonic valvular stenosis. GREAT VESSELS The aortic root is normal in size. The ascending aorta is normal in size. The IVC is dilated in size and collapses >50% with inspiration. PERICARDIAL EFFUSION There is no evidence of significant pericardial effusion. Critical Notification Critical Value: No <Conclusion> Left ventricle systolic function is normal. The Ejection Fraction is 50-55%. There is normal LV segmental wall motion.
--- NOTE | 2017-06-19 19:54 | PDOC ---
Exam Darvin Demential Exam: Darvin Note: Please also refer to the separate dictated note~for this date of service dictated separately.~Patient seen individually. Discussed the patient with Nursing staff reviewed the chart.~Reviewed interim history and current functioning. Reviewed vital signs,~Labs/ Radiology~and current medications noted below. Continue current treatment with the changes noted in the dictated addendum note Assessment: Vital Signs: Vital Signs Date Time Temp Pulse Resp B/P (MAP) Pulse Ox O2 Delivery O2 Flow Rate FiO2 06/19/17 15:56 97.2 70 18 120/64 (82) 96 06/16/17 15:42 Room Air I&O Intake and Output 06/20/17 07:00 Intake Total 960 ml Balance 960 ml Intake Oral 960 ml # Bowel Movements 1 Current Medications: Meds: Current Medications Acetaminophen (Tylenol) 650 mg PRN Q8HRS PRN PO PAIN Last administered on 04:13; Start 05/29/17 at 14:15 Allopurinol (Zyloprim) 100 mg DAILY PO Last administered on 06/19/17 09:32; Start 05/30/17 at 09:00 Aspirin (Children'S Aspirin) 81 mg DAILY PO Last administered on 06/19/17 09: 32; Start 05/30/17 at 09:00 Levothyroxine Sodium (Synthroid) 25 mcg DAILY06 PO Last administered on 04:25; Start 05/30/17 at 06:00 Nystatin (Nystop) 1 naida PRN BID PRN TP REDNESS; Start 05/29/17 at 14:15 Polyethylene Glycol (miraLAX) 17 gm DAILY PO Last administered on 06/19/17 09: 31; Start 05/30/17 at 09:00 Primidone (Mysoline) 50 mg BID PO Last administered on 06/19/17 09:32; Start 05/29/17 at 21:00 Sennosides (Senna) 8.6 mg BID PO Last administered on 06/19/17 09:32; Start at 21:00 Artificial Tears (Artificial Tears) 1 drop TID OU Last administered on 09:00; Start 05/29/17 at 21:00 Diltiazem HCl (Cardizem) 60 mg BID PO Last administered on 06/06/17 08:35; Start 05/29/17 at 21:00; Stop 06/06/17 at 16:16; Status DC Al Hydroxide/Mg Hydroxide (Mylanta Plus Xs) 15 ml PRN AFTMEALHC PRN PO DYSPEPSIA; Start 05/29/17 at 16:00 Magnesium Hydroxide (Milk Of Magnesia) 2,400 mg PRN QHS PRN PO CONSTIPATION Last administered on 06/14/17 09:36; Start 05/29/17 at 16:00 Lorazepam (Ativan) 0.5 mg PRN Q4HRS PRN PO ANXIETY / AGITATION Last administered on 06/16/17 21:32; Start 05/29/17 at 16:45 Olanzapine (ZyPREXA ZYDIS) 5 mg PRN Q4HRS PRN PO PSYCHOSIS Last administered on 06/18/17 19:42; Start 05/29/17 at 16:45 Divalproex Sodium (Depakote Sprinkles) 500 mg DAILY PO Last administered on 08:58; Start 05/30/17 at 09:00; Stop 05/31/17 at 12:04; Status DC Divalproex Sodium (Depakote Sprinkles) 750 mg QHS PO Last administered on 19:57; Start 05/29/17 at 21:00; Stop 05/31/17 at 12:04; Status DC Quetiapine Fumarate (SEROquel) 150 mg 1700,2100 PO Last administered on 19:25; Start 05/29/17 at 17:00; Stop 06/09/17 at 22:05; Status DC Quetiapine Fumarate (SEROquel) 100 mg BIDWBKFT/ELINA PO ; Start 05/30/17 at 08:00; Stop 05/30/17 at 08:00; Status DC Pneumococcal Polyvalent Vaccine (Pneumovax 23) 0.5 ml ONCE ONCE VAX IM Last administered on 05/30/17 09:08; Start 05/30/17 at 09:00; Stop 05/30/17 at 09:01; Status DC Quetiapine Fumarate (SEROquel) 100 mg DAILY08 PO Last administered on 12:51; Start 05/30/17 at 08:00; Stop 06/01/17 at 18:41; Status DC Quetiapine Fumarate (SEROquel) 200 mg DAILYWLUN PO Last administered on 13:06; Start 05/30/17 at 12:00; Stop 06/03/17 at 19:21; Status DC Divalproex Sodium (Depakote Sprinkles) 1,000 mg QHS PO Last administered on 19:59; Start 05/31/17 at 21:00; Stop 06/03/17 at 09:51; Status DC Divalproex Sodium (Depakote Sprinkles) 750 mg DAILY PO Last administered on 07:58; Start 06/01/17 at 09:00; Stop 06/03/17 at 09:51; Status DC Atorvastatin Calcium (Lipitor) 20 mg QHS PO Last administered on 06/18/17 19: 37; Start 05/31/17 at 21:00 Cyanocobalamin (Vitamin B-12) 1,000 mcg [id number] IM ; Start 06/01/17 at 09:00 Vitamin D (Vitamin D3) 50,000 unit WEEKLY PO Last administered on 06/15/17 09: 51; Start 06/01/17 at 09:00 Quetiapine Fumarate (SEROquel) 50 mg DAILY08 PO Last administered on 06/02/17 08:19; Start 06/02/17 at 08:00; Stop 06/03/17 at 19:22; Status DC Risperidone (RisperDAL) 0.5 mg BID PO Last administered on 06/04/17 08:20; Start 06/01/17 at 21:00; Stop 06/04/17 at 17:55; Status DC Divalproex Sodium (Depakote Sprinkles) 500 mg 1X ONCE PO Last administered on 06/03/17 20:58; Start 06/03/17 at 21:00; Stop 06/03/17 at 21:01; Status DC Divalproex Sodium (Depakote Sprinkles) 500 mg DAILY PO Last administered on 09:33; Start 06/04/17 at 09:00 Divalproex Sodium (Depakote Sprinkles) 750 mg HS PO Last administered on 19:37; Start 06/04/17 at 21:00 Quetiapine Fumarate (SEROquel) 100 mg DAILYWLUN PO Last administered on 14:24; Start 06/04/17 at 12:00; Stop 06/05/17 at 12:01; Status DC Risperidone (RisperDAL) 0.5 mg DAILY PO Last administered on 06/06/17 08:35; Start 06/05/17 at 09:00; Stop 06/06/17 at 18:20; Status DC Risperidone (RisperDAL) 1 mg HS PO Last administered on 06/07/17 19:32; Start 06/04/17 at 21:00; Stop 06/08/17 at 18:30; Status DC Diltiazem HCl (Cardizem 24hr Cd) 120 mg 1X ONCE PO Last administered on 16:59; Start 06/06/17 at 16:30; Stop 06/06/17 at 16:31; Status DC Diltiazem HCl (Cardizem 24hr Cd) 120 mg DAILY PO Last administered on 09:32; Start 06/07/17 at 09:00; Stop 06/19/17 at 11:38; Status DC Risperidone (RisperDAL) 1 mg DAILY PO Last administered on 06/12/17 08:12; Start 06/07/17 at 09:00; Stop 06/12/17 at 18:37; Status DC Risperidone (RisperDAL) 1.5 mg HS PO Last administered on 06/11/17 19:25; Start 06/08/17 at 21:00; Stop 06/12/17 at 18:37; Status DC Quetiapine Fumarate (SEROquel) 100 mg QHS PO Last administered on 06/11/17 19: 28; Start 06/10/17 at 21:00; Stop 06/12/17 at 18:42; Status DC Quetiapine Fumarate (SEROquel) 150 mg QPM PO Last administered on 06/11/17 17: 33; Start 06/10/17 at 17:00; Stop 06/12/17 at 17:01; Status DC Quetiapine Fumarate (SEROquel) 100 mg BID@1700,2100 PO ; Start 06/13/17 at 17:00 ; Stop 06/13/17 at 17:00; Status DC Risperidone (RisperDAL) 1.5 mg BID PO Last administered on 06/19/17 09:32; Start 06/12/17 at 21:00; Stop 06/19/17 at 15:34; Status DC Quetiapine Fumarate (SEROquel) 50 mg QHS PO Last administered on 06/13/17 19: 24; Start 06/12/17 at 21:00; Stop 06/14/17 at 00:00; Status DC Bisacodyl (Dulcolax Supp) 10 mg PRN DAILY PRN [place] CONSTIPATION; Start 06/13/17 at 16:00 Diltiazem HCl (Cardizem 24hr Cd) 180 mg DAILY PO ; Start 06/20/17 at 09:00 Risperidone (RisperDAL) 1.5 mg DAILY PO ; Start 06/20/17 at 09:00 Risperidone (RisperDAL) 2 mg HS PO ; Start 06/19/17 at 21:00 Active Scripts Active Reported Risperidone 0.5 Mg Tablet 1.5 Mg PO BID Diltiazem 24HR Cd (Diltiazem Hcl) 120 Mg Cap.er.24h 120 Mg PO DAILY Milk Of Magnesia (Magnesium Hydroxide) 400 Mg/5 Ml Oral.susp 2,400 Mg PO PRN QHS PRN Mag-Al Plus Xs Suspension (Mag Hydrox/Al Hydrox/Simeth) 30 Ml Oral.susp 15 Ml PO PRN AFTMEALHC PRN Cyanocobalamin Injection (Cyanocobalamin (Vitamin B-12)) 1,000 Mcg/1 Ml Vial 1, 000 Mcg IM [id number] Vitamin D3 (Cholecalciferol (Vitamin D3)) 50,000 Unit Capsule 50,000 Unit PO WEEKLY Bisacodyl 10 Mg Supp.rect 10 Mg RC PRN DAILY PRN Atorvastatin Calcium 20 Mg Tablet 20 Mg PO QHS Lorazepam 0.5 Mg Tablet 1 Tab PO PRN Q4HRS PRN Zyprexa Zydis (Olanzapine) 5 Mg Tab.rapdis 5 Mg PO Q4HRS PRN Olanzapine Inj (Olanzapine) 10 Mg Vial 10 Mg IM PRN Q4HRS PRN Seroquel (Quetiapine Fumarate) 50 Mg Tablet 3 Tab PO BID17,21 Seroquel (Quetiapine Fumarate) 100 Mg Tablet 1 Tab PO BIDWBKFT/ELINA Primidone 50 Mg Tablet 50 Mg PO BID Depakote Sprinkle (Divalproex Sodium) 125 Mg Cap.sprink 750 Mg PO QHS Depakote Sprinkle (Divalproex Sodium) 125 Mg Cap.sprink 500 Mg PO DAILY Nystatin 15 Gm Powder 1 Naida TP BID PRN Diltiazem Hcl Tablet (Diltiazem Hcl) 60 Mg Tablet 60 Mg PO BID Tylenol (Acetaminophen) 325 Mg Tablet 2 Tab PO PRN Q8HRS PRN Artificial Tears Eye Drops (Dextran 70/Hypromellose) 15 Ml Drops 1 Drop EACHEYE TID Zyloprim (Allopurinol) 100 Mg Tablet 100 Mg PO DAILY Synthroid (Levothyroxine Sodium) 25 Mcg Tablet 1 Tab PO DAILY06 Senokot (Sennosides) 8.6 Mg Tablet 1 Tab PO BID Miralax (Polyethylene Glycol 3350) 17 Gm Powd.pack 1 Packet PO DAILY Aspirin 81 Mg Tab.chew 81 Mg PO DAILY Diagnosis: Problems: (1) Dementia (2) Schizoaffective disorder (3) Anxiety disorder (4) Impulse control disorder CARLA HOWARD MD Jun 19, 2017 19:54
[2017-06-19] MEDS: ATORVASTATIN CALCIUM 20 MG TABLET PO SCH (20:34)
[2017-06-19] MEDS: risperiDONE 2 MG TABLET. PO SCH (20:35)
--- NOTE | 2017-06-20 01:54 | PN ---
DATE: 06/18/2017 PSYCHIATRIC PROGRESS NOTE This is a late entry for 06/18/2017, covers elements not covered in my initial note of 06/18/2017. SUBJECTIVE: I met with the patient the evening of 06/18/2017. Nursing staff had called me earlier, heart rate was increased to 172. She has a history of SVT, started on Cardizem, discharge postponed to Sunday. Cardiology consult has been requested. She remains intermittently psychotic, labile in her mood. REVIEW OF SYSTEMS: Ambulation impaired. No CV, , pulmonary, eye, ENT system symptoms on review. Reliability varies. MENTAL STATUS EXAM: Oriented to herself and situation. Speech coherent, abstraction fair, computation impaired, language function intact, attention span short. Mood and affect remain somewhat labile. LABORATORY DATA: Reviewed. IMPRESSION: Unchanged from initial note. PLAN: Risperdal is currently 1.5 mg b.i.d. We will increase to 1.5 mg in the morning, 2 mg in the evening. Rest of psychotropics will remain unchanged. Adjust further as clinically indicated. Reviewed drug interactions. Risk/benefit ratio favors no further change. CARLA HOWARD MD DR: MOISES/tamera JOB#: [id number] / [id number]
[2017-06-20] MEDS: LEVOTHYROXINE 25 MCG TABLET. PO SCH (05:40)
[2017-06-20 06:06] VITALS: BP 137/83
[2017-06-20] MEDS: SENNOSIDES 8.6 MG TABLET PO SCH ×2 (09:37→20:03)
[2017-06-20] MEDS: DIVALPROEX 125 MG CAP.SPRINK PO SCH ×2 (09:37→20:03)
[2017-06-20] MEDS: ASPIRIN 81 MG TAB.CHEW PO SCH (09:37)
[2017-06-20] MEDS: ALLOPURINOL 100 MG TABLET. PO SCH (09:37)
[2017-06-20] MEDS: POLYETHYLENE GLYCOL 3350 17 GM PACKET. PO SCH (09:37)
[2017-06-20] MEDS: PRIMIDONE 50 MG TABLET PO SCH ×2 (09:38→20:03)
[2017-06-20] MEDS: risperiDONE 0.5 MG TABLET. PO SCH (09:39)
[2017-06-20] MEDS: POLYVINYL ALCOHOL 1.4% OPHTH SOLUTION 15ML BOTTLE. OU SCH ×3 (09:39→20:04)
[2017-06-20 16:17] VITALS: BP 153/72
--- NOTE | 2017-06-20 20:02 | PDOC ---
Exam Darvin Demential Exam: Darvin Note: Please also refer to the separate dictated note~for this date of service dictated separately.~Patient seen individually. Discussed the patient with Nursing staff reviewed the chart.~Reviewed interim history and current functioning. Reviewed vital signs,~Labs/ Radiology~and current medications noted below. Continue current treatment with the changes noted in the dictated addendum note Assessment: Vital Signs: Vital Signs Date Time Temp Pulse Resp B/P (MAP) Pulse Ox O2 Delivery O2 Flow Rate FiO2 06/20/17 16:17 97.5 69 16 153/72 (99) 98 06/16/17 15:42 Room Air I&O Intake and Output 06/21/17 07:00 Intake Total 1320 ml Balance 1320 ml Intake Oral 1320 ml Current Medications: Meds: Current Medications Acetaminophen (Tylenol) 650 mg PRN Q8HRS PRN PO PAIN Last administered on 04:13; Start 05/29/17 at 14:15 Allopurinol (Zyloprim) 100 mg DAILY PO Last administered on 06/20/17 09:37; Start 05/30/17 at 09:00 Aspirin (Children'S Aspirin) 81 mg DAILY PO Last administered on 06/20/17 09: 37; Start 05/30/17 at 09:00 Levothyroxine Sodium (Synthroid) 25 mcg DAILY06 PO Last administered on 05:40; Start 05/30/17 at 06:00 Nystatin (Nystop) 1 naida PRN BID PRN TP REDNESS; Start 05/29/17 at 14:15 Polyethylene Glycol (miraLAX) 17 gm DAILY PO Last administered on 06/20/17 09: 37; Start 05/30/17 at 09:00 Primidone (Mysoline) 50 mg BID PO Last administered on 06/20/17 09:38; Start 05/29/17 at 21:00 Sennosides (Senna) 8.6 mg BID PO Last administered on 06/20/17 09:37; Start at 21:00 Artificial Tears (Artificial Tears) 1 drop TID OU Last administered on 09:39; Start 05/29/17 at 21:00 Diltiazem HCl (Cardizem) 60 mg BID PO Last administered on 06/06/17 08:35; Start 05/29/17 at 21:00; Stop 06/06/17 at 16:16; Status DC Al Hydroxide/Mg Hydroxide (Mylanta Plus Xs) 15 ml PRN AFTMEALHC PRN PO DYSPEPSIA; Start 05/29/17 at 16:00 Magnesium Hydroxide (Milk Of Magnesia) 2,400 mg PRN QHS PRN PO CONSTIPATION Last administered on 06/14/17 09:36; Start 05/29/17 at 16:00 Lorazepam (Ativan) 0.5 mg PRN Q4HRS PRN PO ANXIETY / AGITATION Last administered on 06/16/17 21:32; Start 05/29/17 at 16:45 Olanzapine (ZyPREXA ZYDIS) 5 mg PRN Q4HRS PRN PO PSYCHOSIS Last administered on 06/18/17 19:42; Start 05/29/17 at 16:45 Divalproex Sodium (Depakote Sprinkles) 500 mg DAILY PO Last administered on 08:58; Start 05/30/17 at 09:00; Stop 05/31/17 at 12:04; Status DC Divalproex Sodium (Depakote Sprinkles) 750 mg QHS PO Last administered on 19:57; Start 05/29/17 at 21:00; Stop 05/31/17 at 12:04; Status DC Quetiapine Fumarate (SEROquel) 150 mg 1700,2100 PO Last administered on 19:25; Start 05/29/17 at 17:00; Stop 06/09/17 at 22:05; Status DC Quetiapine Fumarate (SEROquel) 100 mg BIDWBKFT/ELINA PO ; Start 05/30/17 at 08:00; Stop 05/30/17 at 08:00; Status DC Pneumococcal Polyvalent Vaccine (Pneumovax 23) 0.5 ml ONCE ONCE VAX IM Last administered on 05/30/17 09:08; Start 05/30/17 at 09:00; Stop 05/30/17 at 09:01; Status DC Quetiapine Fumarate (SEROquel) 100 mg DAILY08 PO Last administered on 12:51; Start 05/30/17 at 08:00; Stop 06/01/17 at 18:41; Status DC Quetiapine Fumarate (SEROquel) 200 mg DAILYWLUN PO Last administered on 13:06; Start 05/30/17 at 12:00; Stop 06/03/17 at 19:21; Status DC Divalproex Sodium (Depakote Sprinkles) 1,000 mg QHS PO Last administered on 19:59; Start 05/31/17 at 21:00; Stop 06/03/17 at 09:51; Status DC Divalproex Sodium (Depakote Sprinkles) 750 mg DAILY PO Last administered on 07:58; Start 06/01/17 at 09:00; Stop 06/03/17 at 09:51; Status DC Atorvastatin Calcium (Lipitor) 20 mg QHS PO Last administered on 06/19/17 20: 34; Start 05/31/17 at 21:00 Cyanocobalamin (Vitamin B-12) 1,000 mcg [id number] IM ; Start 06/01/17 at 09:00 Vitamin D (Vitamin D3) 50,000 unit WEEKLY PO Last administered on 06/15/17 09: 51; Start 06/01/17 at 09:00 Quetiapine Fumarate (SEROquel) 50 mg DAILY08 PO Last administered on 06/02/17 08:19; Start 06/02/17 at 08:00; Stop 06/03/17 at 19:22; Status DC Risperidone (RisperDAL) 0.5 mg BID PO Last administered on 06/04/17 08:20; Start 06/01/17 at 21:00; Stop 06/04/17 at 17:55; Status DC Divalproex Sodium (Depakote Sprinkles) 500 mg 1X ONCE PO Last administered on 06/03/17 20:58; Start 06/03/17 at 21:00; Stop 06/03/17 at 21:01; Status DC Divalproex Sodium (Depakote Sprinkles) 500 mg DAILY PO Last administered on 09:37; Start 06/04/17 at 09:00 Divalproex Sodium (Depakote Sprinkles) 750 mg HS PO Last administered on 20:33; Start 06/04/17 at 21:00 Quetiapine Fumarate (SEROquel) 100 mg DAILYWLUN PO Last administered on 14:24; Start 06/04/17 at 12:00; Stop 06/05/17 at 12:01; Status DC Risperidone (RisperDAL) 0.5 mg DAILY PO Last administered on 06/06/17 08:35; Start 06/05/17 at 09:00; Stop 06/06/17 at 18:20; Status DC Risperidone (RisperDAL) 1 mg HS PO Last administered on 06/07/17 19:32; Start 06/04/17 at 21:00; Stop 06/08/17 at 18:30; Status DC Diltiazem HCl (Cardizem 24hr Cd) 120 mg 1X ONCE PO Last administered on 16:59; Start 06/06/17 at 16:30; Stop 06/06/17 at 16:31; Status DC Diltiazem HCl (Cardizem 24hr Cd) 120 mg DAILY PO Last administered on 09:32; Start 06/07/17 at 09:00; Stop 06/19/17 at 11:38; Status DC Risperidone (RisperDAL) 1 mg DAILY PO Last administered on 06/12/17 08:12; Start 06/07/17 at 09:00; Stop 06/12/17 at 18:37; Status DC Risperidone (RisperDAL) 1.5 mg HS PO Last administered on 06/11/17 19:25; Start 06/08/17 at 21:00; Stop 06/12/17 at 18:37; Status DC Quetiapine Fumarate (SEROquel) 100 mg QHS PO Last administered on 06/11/17 19: 28; Start 06/10/17 at 21:00; Stop 06/12/17 at 18:42; Status DC Quetiapine Fumarate (SEROquel) 150 mg QPM PO Last administered on 06/11/17 17: 33; Start 06/10/17 at 17:00; Stop 06/12/17 at 17:01; Status DC Quetiapine Fumarate (SEROquel) 100 mg BID@1700,2100 PO ; Start 06/13/17 at 17:00 ; Stop 06/13/17 at 17:00; Status DC Risperidone (RisperDAL) 1.5 mg BID PO Last administered on 06/19/17 09:32; Start 06/12/17 at 21:00; Stop 06/19/17 at 15:34; Status DC Quetiapine Fumarate (SEROquel) 50 mg QHS PO Last administered on 06/13/17 19: 24; Start 06/12/17 at 21:00; Stop 06/14/17 at 00:00; Status DC Bisacodyl (Dulcolax Supp) 10 mg PRN DAILY PRN [place] CONSTIPATION; Start 06/13/17 at 16:00 Diltiazem HCl (Cardizem 24hr Cd) 180 mg DAILY PO Last administered on 09:39; Start 06/20/17 at 09:00 Risperidone (RisperDAL) 1.5 mg DAILY PO Last administered on 06/20/17 09:39; Start 06/20/17 at 09:00 Risperidone (RisperDAL) 2 mg HS PO Last administered on 06/19/17 20:35; Start 06/19/17 at 21:00 Active Scripts Active Reported Risperidone 0.5 Mg Tablet 1.5 Mg PO BID Diltiazem 24HR Cd (Diltiazem Hcl) 120 Mg Cap.er.24h 120 Mg PO DAILY Milk Of Magnesia (Magnesium Hydroxide) 400 Mg/5 Ml Oral.susp 2,400 Mg PO PRN QHS PRN Mag-Al Plus Xs Suspension (Mag Hydrox/Al Hydrox/Simeth) 30 Ml Oral.susp 15 Ml PO PRN AFTMEALHC PRN Cyanocobalamin Injection (Cyanocobalamin (Vitamin B-12)) 1,000 Mcg/1 Ml Vial 1, 000 Mcg IM [id number] Vitamin D3 (Cholecalciferol (Vitamin D3)) 50,000 Unit Capsule 50,000 Unit PO WEEKLY Bisacodyl 10 Mg Supp.rect 10 Mg RC PRN DAILY PRN Atorvastatin Calcium 20 Mg Tablet 20 Mg PO QHS Lorazepam 0.5 Mg Tablet 1 Tab PO PRN Q4HRS PRN Zyprexa Zydis (Olanzapine) 5 Mg Tab.rapdis 5 Mg PO Q4HRS PRN Olanzapine Inj (Olanzapine) 10 Mg Vial 10 Mg IM PRN Q4HRS PRN Seroquel (Quetiapine Fumarate) 50 Mg Tablet 3 Tab PO BID17,21 Seroquel (Quetiapine Fumarate) 100 Mg Tablet 1 Tab PO BIDWBKFT/ELINA Primidone 50 Mg Tablet 50 Mg PO BID Depakote Sprinkle (Divalproex Sodium) 125 Mg Cap.sprink 750 Mg PO QHS Depakote Sprinkle (Divalproex Sodium) 125 Mg Cap.sprink 500 Mg PO DAILY Nystatin 15 Gm Powder 1 Naida TP BID PRN Diltiazem Hcl Tablet (Diltiazem Hcl) 60 Mg Tablet 60 Mg PO BID Tylenol (Acetaminophen) 325 Mg Tablet 2 Tab PO PRN Q8HRS PRN Artificial Tears Eye Drops (Dextran 70/Hypromellose) 15 Ml Drops 1 Drop EACHEYE TID Zyloprim (Allopurinol) 100 Mg Tablet 100 Mg PO DAILY Synthroid (Levothyroxine Sodium) 25 Mcg Tablet 1 Tab PO DAILY06 Senokot (Sennosides) 8.6 Mg Tablet 1 Tab PO BID Miralax (Polyethylene Glycol 3350) 17 Gm Powd.pack 1 Packet PO DAILY Aspirin 81 Mg Tab.chew 81 Mg PO DAILY Diagnosis: Problems: (1) Dementia (2) Schizoaffective disorder (3) Anxiety disorder (4) Impulse control disorder CARLA HOWARD MD Jun 20, 2017 20:02
[2017-06-20] MEDS: risperiDONE 2 MG TABLET. PO SCH (20:03)
[2017-06-20] MEDS: ATORVASTATIN CALCIUM 20 MG TABLET PO SCH (20:03)
--- NOTE | 2017-06-21 00:56 | PN ---
DATE: 06/19/2017 This late entry 06/19/2017 covers elements not covered in my initial note of 06/19/2017. I met with the patient in the evening of 06/19/2017. Morning of 06/19/2017 per nursing report, she was quite agitated, cursing, screaming in the morning, "my f--- food is too hard." Nursing staff addressed this and she was much calmer after this. REVIEW OF SYSTEMS: Ambulation impaired, in wheelchair. No CV, , pulmonary, eye system symptoms on review. MENTAL STATUS EXAM: Reasonably oriented. Speech is coherent as I met with her, not pressured. Abstraction fair, computation impaired, language function intact, attention span short, mood and affect, lability overall improved. Other than that, single episode earlier on 06/19/2017 noted above. LABORATORY DATA: Reviewed. IMPRESSION: Unchanged from initial note. PLAN: Repeat valproic acid level is 91 therapeutic. Continue current psychotropics mentioned in my initial note. Increase Risperdal from 1.5 mg b.i.d. to 1.5 mg in the morning, 2 mg at night. Review drug interactions, risk/benefit ratio favors no further change as of now. CARLA HOWARD MD DR: MOISES/tamera JOB#: [id number] / [id number]
[2017-06-21 06:14] VITALS: BP 122/75
[2017-06-21] MEDS: LEVOTHYROXINE 25 MCG TABLET. PO SCH (06:20)
[2017-06-21] MEDS: DIVALPROEX 125 MG CAP.SPRINK PO SCH ×2 (08:45→20:16)
[2017-06-21] MEDS: ALLOPURINOL 100 MG TABLET. PO SCH (08:45)
[2017-06-21] MEDS: ASPIRIN 81 MG TAB.CHEW PO SCH (08:45)
[2017-06-21] MEDS: POLYETHYLENE GLYCOL 3350 17 GM PACKET. PO SCH (08:46)
[2017-06-21] MEDS: PRIMIDONE 50 MG TABLET PO SCH ×2 (08:46→20:15)
[2017-06-21] MEDS: SENNOSIDES 8.6 MG TABLET PO SCH ×2 (08:46→20:15)
[2017-06-21] MEDS: risperiDONE 0.5 MG TABLET. PO SCH (08:46)
[2017-06-21] MEDS: POLYVINYL ALCOHOL 1.4% OPHTH SOLUTION 15ML BOTTLE. OU SCH ×3 (08:47→21:44)
[2017-06-21 16:20] VITALS: BP 162/84
[2017-06-21] MEDS: ACETAMINOPHEN 325 MG TABLET PO PRN (18:22)
--- NOTE | 2017-06-21 20:01 | PDOC ---
Exam Darvin Demential Exam: Darvin Note: Please also refer to the separate dictated note~for this date of service dictated separately.~Patient seen individually. Discussed the patient with Nursing staff reviewed the chart.~Reviewed interim history and current functioning. Reviewed vital signs,~Labs/ Radiology~and current medications noted below. Continue current treatment with the changes noted in the dictated addendum note Assessment: Vital Signs: Vital Signs Date Time Temp Pulse Resp B/P (MAP) Pulse Ox O2 Delivery O2 Flow Rate FiO2 06/21/17 16:20 98.7 68 20 162/84 (110) 96 06/16/17 15:42 Room Air I&O Intake and Output 06/22/17 06:59 Intake Total 600 ml Balance 600 ml Intake Oral 600 ml Current Medications: Meds: Current Medications Acetaminophen (Tylenol) 650 mg PRN Q8HRS PRN PO PAIN Last administered on 18:22; Start 05/29/17 at 14:15 Allopurinol (Zyloprim) 100 mg DAILY PO Last administered on 06/21/17 08:45; Start 05/30/17 at 09:00 Aspirin (Children'S Aspirin) 81 mg DAILY PO Last administered on 06/21/17 08: 45; Start 05/30/17 at 09:00 Levothyroxine Sodium (Synthroid) 25 mcg DAILY06 PO Last administered on 06:20; Start 05/30/17 at 06:00 Nystatin (Nystop) 1 naida PRN BID PRN TP REDNESS; Start 05/29/17 at 14:15 Polyethylene Glycol (miraLAX) 17 gm DAILY PO Last administered on 06/21/17 08: 46; Start 05/30/17 at 09:00 Primidone (Mysoline) 50 mg BID PO Last administered on 06/21/17 08:46; Start 05/29/17 at 21:00 Sennosides (Senna) 8.6 mg BID PO Last administered on 06/21/17 08:46; Start at 21:00 Artificial Tears (Artificial Tears) 1 drop TID OU Last administered on 14:04; Start 05/29/17 at 21:00 Diltiazem HCl (Cardizem) 60 mg BID PO Last administered on 06/06/17 08:35; Start 05/29/17 at 21:00; Stop 06/06/17 at 16:16; Status DC Al Hydroxide/Mg Hydroxide (Mylanta Plus Xs) 15 ml PRN AFTMEALHC PRN PO DYSPEPSIA; Start 05/29/17 at 16:00 Magnesium Hydroxide (Milk Of Magnesia) 2,400 mg PRN QHS PRN PO CONSTIPATION Last administered on 06/14/17 09:36; Start 05/29/17 at 16:00 Lorazepam (Ativan) 0.5 mg PRN Q4HRS PRN PO ANXIETY / AGITATION Last administered on 06/16/17 21:32; Start 05/29/17 at 16:45 Olanzapine (ZyPREXA ZYDIS) 5 mg PRN Q4HRS PRN PO PSYCHOSIS Last administered on 06/18/17 19:42; Start 05/29/17 at 16:45 Divalproex Sodium (Depakote Sprinkles) 500 mg DAILY PO Last administered on 08:58; Start 05/30/17 at 09:00; Stop 05/31/17 at 12:04; Status DC Divalproex Sodium (Depakote Sprinkles) 750 mg QHS PO Last administered on 19:57; Start 05/29/17 at 21:00; Stop 05/31/17 at 12:04; Status DC Quetiapine Fumarate (SEROquel) 150 mg 1700,2100 PO Last administered on 19:25; Start 05/29/17 at 17:00; Stop 06/09/17 at 22:05; Status DC Quetiapine Fumarate (SEROquel) 100 mg BIDWBKFT/ELINA PO ; Start 05/30/17 at 08:00; Stop 05/30/17 at 08:00; Status DC Pneumococcal Polyvalent Vaccine (Pneumovax 23) 0.5 ml ONCE ONCE VAX IM Last administered on 05/30/17 09:08; Start 05/30/17 at 09:00; Stop 05/30/17 at 09:01; Status DC Quetiapine Fumarate (SEROquel) 100 mg DAILY08 PO Last administered on 12:51; Start 05/30/17 at 08:00; Stop 06/01/17 at 18:41; Status DC Quetiapine Fumarate (SEROquel) 200 mg DAILYWLUN PO Last administered on 13:06; Start 05/30/17 at 12:00; Stop 06/03/17 at 19:21; Status DC Divalproex Sodium (Depakote Sprinkles) 1,000 mg QHS PO Last administered on 19:59; Start 05/31/17 at 21:00; Stop 06/03/17 at 09:51; Status DC Divalproex Sodium (Depakote Sprinkles) 750 mg DAILY PO Last administered on 07:58; Start 06/01/17 at 09:00; Stop 06/03/17 at 09:51; Status DC Atorvastatin Calcium (Lipitor) 20 mg QHS PO Last administered on 06/20/17 20: 03; Start 05/31/17 at 21:00 Cyanocobalamin (Vitamin B-12) 1,000 mcg [id number] IM ; Start 06/01/17 at 09:00 Vitamin D (Vitamin D3) 50,000 unit WEEKLY PO Last administered on 06/15/17 09: 51; Start 06/01/17 at 09:00 Quetiapine Fumarate (SEROquel) 50 mg DAILY08 PO Last administered on 06/02/17 08:19; Start 06/02/17 at 08:00; Stop 06/03/17 at 19:22; Status DC Risperidone (RisperDAL) 0.5 mg BID PO Last administered on 06/04/17 08:20; Start 06/01/17 at 21:00; Stop 06/04/17 at 17:55; Status DC Divalproex Sodium (Depakote Sprinkles) 500 mg 1X ONCE PO Last administered on 06/03/17 20:58; Start 06/03/17 at 21:00; Stop 06/03/17 at 21:01; Status DC Divalproex Sodium (Depakote Sprinkles) 500 mg DAILY PO Last administered on 08:45; Start 06/04/17 at 09:00 Divalproex Sodium (Depakote Sprinkles) 750 mg HS PO Last administered on 20:03; Start 06/04/17 at 21:00 Quetiapine Fumarate (SEROquel) 100 mg DAILYWLUN PO Last administered on 14:24; Start 06/04/17 at 12:00; Stop 06/05/17 at 12:01; Status DC Risperidone (RisperDAL) 0.5 mg DAILY PO Last administered on 06/06/17 08:35; Start 06/05/17 at 09:00; Stop 06/06/17 at 18:20; Status DC Risperidone (RisperDAL) 1 mg HS PO Last administered on 06/07/17 19:32; Start 06/04/17 at 21:00; Stop 06/08/17 at 18:30; Status DC Diltiazem HCl (Cardizem 24hr Cd) 120 mg 1X ONCE PO Last administered on 16:59; Start 06/06/17 at 16:30; Stop 06/06/17 at 16:31; Status DC Diltiazem HCl (Cardizem 24hr Cd) 120 mg DAILY PO Last administered on 09:32; Start 06/07/17 at 09:00; Stop 06/19/17 at 11:38; Status DC Risperidone (RisperDAL) 1 mg DAILY PO Last administered on 06/12/17 08:12; Start 06/07/17 at 09:00; Stop 06/12/17 at 18:37; Status DC Risperidone (RisperDAL) 1.5 mg HS PO Last administered on 06/11/17 19:25; Start 06/08/17 at 21:00; Stop 06/12/17 at 18:37; Status DC Quetiapine Fumarate (SEROquel) 100 mg QHS PO Last administered on 06/11/17 19: 28; Start 06/10/17 at 21:00; Stop 06/12/17 at 18:42; Status DC Quetiapine Fumarate (SEROquel) 150 mg QPM PO Last administered on 06/11/17 17: 33; Start 06/10/17 at 17:00; Stop 06/12/17 at 17:01; Status DC Quetiapine Fumarate (SEROquel) 100 mg BID@1700,2100 PO ; Start 06/13/17 at 17:00 ; Stop 06/13/17 at 17:00; Status DC Risperidone (RisperDAL) 1.5 mg BID PO Last administered on 06/19/17 09:32; Start 06/12/17 at 21:00; Stop 06/19/17 at 15:34; Status DC Quetiapine Fumarate (SEROquel) 50 mg QHS PO Last administered on 06/13/17 19: 24; Start 06/12/17 at 21:00; Stop 06/14/17 at 00:00; Status DC Bisacodyl (Dulcolax Supp) 10 mg PRN DAILY PRN [place] CONSTIPATION; Start 06/13/17 at 16:00 Diltiazem HCl (Cardizem 24hr Cd) 180 mg DAILY PO Last administered on 08:45; Start 06/20/17 at 09:00 Risperidone (RisperDAL) 1.5 mg DAILY PO Last administered on 06/21/17 08:46; Start 06/20/17 at 09:00 Risperidone (RisperDAL) 2 mg HS PO Last administered on 06/20/17 20:03; Start 06/19/17 at 21:00 Active Scripts Active Reported Risperidone 0.5 Mg Tablet 1.5 Mg PO BID Diltiazem 24HR Cd (Diltiazem Hcl) 120 Mg Cap.er.24h 120 Mg PO DAILY Milk Of Magnesia (Magnesium Hydroxide) 400 Mg/5 Ml Oral.susp 2,400 Mg PO PRN QHS PRN Mag-Al Plus Xs Suspension (Mag Hydrox/Al Hydrox/Simeth) 30 Ml Oral.susp 15 Ml PO PRN AFTMEALHC PRN Cyanocobalamin Injection (Cyanocobalamin (Vitamin B-12)) 1,000 Mcg/1 Ml Vial 1, 000 Mcg IM [id number] Vitamin D3 (Cholecalciferol (Vitamin D3)) 50,000 Unit Capsule 50,000 Unit PO WEEKLY Bisacodyl 10 Mg Supp.rect 10 Mg RC PRN DAILY PRN Atorvastatin Calcium 20 Mg Tablet 20 Mg PO QHS Lorazepam 0.5 Mg Tablet 1 Tab PO PRN Q4HRS PRN Zyprexa Zydis (Olanzapine) 5 Mg Tab.rapdis 5 Mg PO Q4HRS PRN Olanzapine Inj (Olanzapine) 10 Mg Vial 10 Mg IM PRN Q4HRS PRN Seroquel (Quetiapine Fumarate) 50 Mg Tablet 3 Tab PO BID17,21 Seroquel (Quetiapine Fumarate) 100 Mg Tablet 1 Tab PO BIDWBKFT/ELINA Primidone 50 Mg Tablet 50 Mg PO BID Depakote Sprinkle (Divalproex Sodium) 125 Mg Cap.sprink 750 Mg PO QHS Depakote Sprinkle (Divalproex Sodium) 125 Mg Cap.sprink 500 Mg PO DAILY Nystatin 15 Gm Powder 1 Naida TP BID PRN Diltiazem Hcl Tablet (Diltiazem Hcl) 60 Mg Tablet 60 Mg PO BID Tylenol (Acetaminophen) 325 Mg Tablet 2 Tab PO PRN Q8HRS PRN Artificial Tears Eye Drops (Dextran 70/Hypromellose) 15 Ml Drops 1 Drop EACHEYE TID Zyloprim (Allopurinol) 100 Mg Tablet 100 Mg PO DAILY Synthroid (Levothyroxine Sodium) 25 Mcg Tablet 1 Tab PO DAILY06 Senokot (Sennosides) 8.6 Mg Tablet 1 Tab PO BID Miralax (Polyethylene Glycol 3350) 17 Gm Powd.pack 1 Packet PO DAILY Aspirin 81 Mg Tab.chew 81 Mg PO DAILY Diagnosis: Problems: (1) Dementia (2) Schizoaffective disorder (3) Anxiety disorder (4) Impulse control disorder (5) Mild cognitive disorder CARLA HOWARD MD Jun 21, 2017 20:01
[2017-06-21] MEDS: risperiDONE 2 MG TABLET. PO SCH (20:15)
[2017-06-21] MEDS: ATORVASTATIN CALCIUM 20 MG TABLET PO SCH (20:16)
[2017-06-21] MEDS ORDERED: RISP2TAB33 PO (23:08)
--- NOTE | 2017-06-22 01:48 | PN ---
DATE: 06/20/2017 PSYCHIATRIC PROGRESS NOTE This is a late entry of 06/20/2017 covers elements not covered in my initial note of 06/20/2017. I met with the patient on the evening of 06/20/2017. The patient slept 7-3/4 hours previous evening, calm, compliant, screams at times when she is trying to attract attention, when she wants something and she was screaming, wanting roast beef sandwich, repeating what she heard from others. REVIEW OF SYSTEMS: Ambulation impaired, in a wheelchair. No CV, , pulmonary, eye system symptoms on review. Reliability is poor. MENTAL STATUS EXAM: Oriented to herself and situation. Speech is coherent, abstraction fair, computation impaired, attention span short, language function intact. paranoid. No active suicidal or homicidal ideation. IMPRESSION: Unchanged from initial note. Valproic acid level therapeutic at 91. PLAN: Continue current psychotropics. Reviewed drug interactions. Risk/benefit ratio favors no further change. CARLA HOWARD MD DR: MOISES/tamera JOB#: [id number] / [id number]
[2017-06-22 05:33] VITALS: BP 115/89
[2017-06-22] MEDS: LEVOTHYROXINE 25 MCG TABLET. PO SCH (05:33)
[2017-06-22] MEDS: POLYETHYLENE GLYCOL 3350 17 GM PACKET. PO SCH (08:54)
[2017-06-22] MEDS: PRIMIDONE 50 MG TABLET PO SCH (08:55)
[2017-06-22] MEDS: ASPIRIN 81 MG TAB.CHEW PO SCH (08:55)
[2017-06-22] MEDS: risperiDONE 0.5 MG TABLET. PO SCH (08:55)
[2017-06-22] MEDS: DIVALPROEX 125 MG CAP.SPRINK PO SCH (08:55)
[2017-06-22] MEDS: ALLOPURINOL 100 MG TABLET. PO SCH (08:55)
[2017-06-22] MEDS: SENNOSIDES 8.6 MG TABLET PO SCH (08:55)
[2017-06-22 09:06] VITALS: BP 138/65
[2017-06-22] MEDS: CHOLECALCIFEROL (VITAMIN D3) 50,000 UNIT CAPSULE PO SCH (09:07)
[2017-06-22] MEDS: POLYVINYL ALCOHOL 1.4% OPHTH SOLUTION 15ML BOTTLE. OU SCH (09:07)
--- NOTE | 2017-06-22 18:48 | PDOC ---
Exam Darvin Demential Exam: Darvin Note: Please also refer to the separate dictated note~for this date of service dictated separately.~Patient seen individually. Discussed the patient with Nursing staff reviewed the chart.~Reviewed interim history and current functioning. Reviewed vital signs,~Labs/ Radiology~and current medications noted below. Continue current treatment with the changes noted in the dictated addendum note Assessment: Vital Signs: Vital Signs Date Time Temp Pulse Resp B/P (MAP) Pulse Ox O2 Delivery O2 Flow Rate FiO2 06/22/17 09:06 90 138/65 06/22/17 05:33 97.8 16 97 06/16/17 15:42 Room Air I&O Intake and Output 06/23/17 07:00 Intake Total 240 ml Balance 240 ml Intake Oral 240 ml Current Medications: Meds: Current Medications Acetaminophen (Tylenol) 650 mg PRN Q8HRS PRN PO PAIN Last administered on 18:22; Start 05/29/17 at 14:15; Stop 06/22/17 at 11:58; Status DC Allopurinol (Zyloprim) 100 mg DAILY PO Last administered on 06/22/17 08:55; Start 05/30/17 at 09:00; Stop 06/22/17 at 11:58; Status DC Aspirin (Children'S Aspirin) 81 mg DAILY PO Last administered on 06/22/17 08:55 ; Start 05/30/17 at 09:00; Stop 06/22/17 at 11:58; Status DC Levothyroxine Sodium (Synthroid) 25 mcg DAILY06 PO Last administered on 05:33; Start 05/30/17 at 06:00; Stop 06/22/17 at 11:58; Status DC Nystatin (Nystop) 1 naida PRN BID PRN TP REDNESS; Start 05/29/17 at 14:15; Stop at 11:58; Status DC Polyethylene Glycol (miraLAX) 17 gm DAILY PO Last administered on 06/22/17 08: 54; Start 05/30/17 at 09:00; Stop 06/22/17 at 11:58; Status DC Primidone (Mysoline) 50 mg BID PO Last administered on 06/22/17 08:55; Start at 21:00; Stop 06/22/17 at 11:58; Status DC Sennosides (Senna) 8.6 mg BID PO Last administered on 06/22/17 08:55; Start 05/29/17 at 21:00; Stop 06/22/17 at 11:58; Status DC Artificial Tears (Artificial Tears) 1 drop TID OU Last administered on 09:07; Start 05/29/17 at 21:00; Stop 06/22/17 at 11:58; Status DC Diltiazem HCl (Cardizem) 60 mg BID PO Last administered on 06/06/17 08:35; Start 05/29/17 at 21:00; Stop 06/06/17 at 16:16; Status DC Al Hydroxide/Mg Hydroxide (Mylanta Plus Xs) 15 ml PRN AFTMEALHC PRN PO DYSPEPSIA; Start 05/29/17 at 16:00; Stop 06/22/17 at 11:58; Status DC Magnesium Hydroxide (Milk Of Magnesia) 2,400 mg PRN QHS PRN PO CONSTIPATION Last administered on 06/14/17 09:36; Start 05/29/17 at 16:00; Stop 06/22/17 at 11 :58; Status DC Lorazepam (Ativan) 0.5 mg PRN Q4HRS PRN PO ANXIETY / AGITATION Last administered on 06/16/17 21:32; Start 05/29/17 at 16:45; Stop 06/22/17 at 11:58; Status DC Olanzapine (ZyPREXA ZYDIS) 5 mg PRN Q4HRS PRN PO PSYCHOSIS Last administered on 06/18/17 19:42; Start 05/29/17 at 16:45; Stop 06/22/17 at 11:58; Status DC Divalproex Sodium (Depakote Sprinkles) 500 mg DAILY PO Last administered on 08:58; Start 05/30/17 at 09:00; Stop 05/31/17 at 12:04; Status DC Divalproex Sodium (Depakote Sprinkles) 750 mg QHS PO Last administered on 19:57; Start 05/29/17 at 21:00; Stop 05/31/17 at 12:04; Status DC Quetiapine Fumarate (SEROquel) 150 mg 1700,2100 PO Last administered on 19:25; Start 05/29/17 at 17:00; Stop 06/09/17 at 22:05; Status DC Quetiapine Fumarate (SEROquel) 100 mg BIDWBKFT/ELINA PO ; Start 05/30/17 at 08:00; Stop 05/30/17 at 08:00; Status DC Pneumococcal Polyvalent Vaccine (Pneumovax 23) 0.5 ml ONCE ONCE VAX IM Last administered on 05/30/17 09:08; Start 05/30/17 at 09:00; Stop 05/30/17 at 09:01; Status DC Quetiapine Fumarate (SEROquel) 100 mg DAILY08 PO Last administered on 12:51; Start 05/30/17 at 08:00; Stop 06/01/17 at 18:41; Status DC Quetiapine Fumarate (SEROquel) 200 mg DAILYWLUN PO Last administered on 13:06; Start 05/30/17 at 12:00; Stop 06/03/17 at 19:21; Status DC Divalproex Sodium (Depakote Sprinkles) 1,000 mg QHS PO Last administered on 19:59; Start 05/31/17 at 21:00; Stop 06/03/17 at 09:51; Status DC Divalproex Sodium (Depakote Sprinkles) 750 mg DAILY PO Last administered on 07:58; Start 06/01/17 at 09:00; Stop 06/03/17 at 09:51; Status DC Atorvastatin Calcium (Lipitor) 20 mg QHS PO Last administered on 06/21/17 20: 16; Start 05/31/17 at 21:00; Stop 06/22/17 at 11:58; Status DC Cyanocobalamin (Vitamin B-12) 1,000 mcg [id number] IM ; Start 06/01/17 at 09:00; Stop 06/22/17 at 11:58; Status DC Vitamin D (Vitamin D3) 50,000 unit WEEKLY PO Last administered on 06/22/17 09: 07; Start 06/01/17 at 09:00; Stop 06/22/17 at 11:58; Status DC Quetiapine Fumarate (SEROquel) 50 mg DAILY08 PO Last administered on 06/02/17 08:19; Start 06/02/17 at 08:00; Stop 06/03/17 at 19:22; Status DC Risperidone (RisperDAL) 0.5 mg BID PO Last administered on 06/04/17 08:20; Start 06/01/17 at 21:00; Stop 06/04/17 at 17:55; Status DC Divalproex Sodium (Depakote Sprinkles) 500 mg 1X ONCE PO Last administered on 06/03/17 20:58; Start 06/03/17 at 21:00; Stop 06/03/17 at 21:01; Status DC Divalproex Sodium (Depakote Sprinkles) 500 mg DAILY PO Last administered on 06/22 08:55; Start 06/04/17 at 09:00; Stop 06/22/17 at 11:58; Status DC Divalproex Sodium (Depakote Sprinkles) 750 mg HS PO Last administered on 20:16; Start 06/04/17 at 21:00; Stop 06/22/17 at 11:58; Status DC Quetiapine Fumarate (SEROquel) 100 mg DAILYWLUN PO Last administered on 14:24; Start 06/04/17 at 12:00; Stop 06/05/17 at 12:01; Status DC Risperidone (RisperDAL) 0.5 mg DAILY PO Last administered on 06/06/17 08:35; Start 06/05/17 at 09:00; Stop 06/06/17 at 18:20; Status DC Risperidone (RisperDAL) 1 mg HS PO Last administered on 06/07/17 19:32; Start 06/04/17 at 21:00; Stop 06/08/17 at 18:30; Status DC Diltiazem HCl (Cardizem 24hr Cd) 120 mg 1X ONCE PO Last administered on 16:59; Start 06/06/17 at 16:30; Stop 06/06/17 at 16:31; Status DC Diltiazem HCl (Cardizem 24hr Cd) 120 mg DAILY PO Last administered on 09:32; Start 06/07/17 at 09:00; Stop 06/19/17 at 11:38; Status DC Risperidone (RisperDAL) 1 mg DAILY PO Last administered on 06/12/17 08:12; Start 06/07/17 at 09:00; Stop 06/12/17 at 18:37; Status DC Risperidone (RisperDAL) 1.5 mg HS PO Last administered on 06/11/17 19:25; Start 06/08/17 at 21:00; Stop 06/12/17 at 18:37; Status DC Quetiapine Fumarate (SEROquel) 100 mg QHS PO Last administered on 06/11/17 19: 28; Start 06/10/17 at 21:00; Stop 06/12/17 at 18:42; Status DC Quetiapine Fumarate (SEROquel) 150 mg QPM PO Last administered on 06/11/17 17: 33; Start 06/10/17 at 17:00; Stop 06/12/17 at 17:01; Status DC Quetiapine Fumarate (SEROquel) 100 mg BID@1700,2100 PO ; Start 06/13/17 at 17:00 ; Stop 06/13/17 at 17:00; Status DC Risperidone (RisperDAL) 1.5 mg BID PO Last administered on 06/19/17 09:32; Start 06/12/17 at 21:00; Stop 06/19/17 at 15:34; Status DC Quetiapine Fumarate (SEROquel) 50 mg QHS PO Last administered on 06/13/17 19: 24; Start 06/12/17 at 21:00; Stop 06/14/17 at 00:00; Status DC Bisacodyl (Dulcolax Supp) 10 mg PRN DAILY PRN [place] CONSTIPATION; Start 06/13/17 at 16:00; Stop 06/22/17 at 11:58; Status DC Diltiazem HCl (Cardizem 24hr Cd) 180 mg DAILY PO Last administered on 06/22/17 09:06; Start 06/20/17 at 09:00; Stop 06/22/17 at 11:58; Status DC Risperidone (RisperDAL) 1.5 mg DAILY PO Last administered on 06/22/17 08:55; Start 06/20/17 at 09:00; Stop 06/22/17 at 11:58; Status DC Risperidone (RisperDAL) 2 mg HS PO Last administered on 06/21/17 20:15; Start 06/19/17 at 21:00; Stop 06/22/17 at 11:58; Status DC Active Scripts Active Reported Risperdal (Risperidone) 2 Mg Tablet 2 Mg PO HS Risperidone 0.5 Mg Tablet 1.5 Mg PO DAILY Diltiazem 24HR Cd (Diltiazem Hcl) 120 Mg Cap.er.24h 180 Mg PO DAILY Milk Of Magnesia (Magnesium Hydroxide) 400 Mg/5 Ml Oral.susp 2,400 Mg PO PRN QHS PRN Mag-Al Plus Xs Suspension (Mag Hydrox/Al Hydrox/Simeth) 30 Ml Oral.susp 15 Ml PO PRN AFTMEALHC PRN Cyanocobalamin Injection (Cyanocobalamin (Vitamin B-12)) 1,000 Mcg/1 Ml Vial 1, 000 Mcg IM [id number] start date: 06/01/17 Vitamin D3 (Cholecalciferol (Vitamin D3)) 50,000 Unit Capsule 50,000 Unit PO WEEKLY start date: 06/01/17 Bisacodyl 10 Mg Supp.rect 10 Mg RC PRN DAILY PRN Atorvastatin Calcium 20 Mg Tablet 20 Mg PO QHS Lorazepam 0.5 Mg Tablet 0.5 Mg PO PRN Q4HRS PRN Zyprexa Zydis (Olanzapine) 5 Mg Tab.rapdis 5 Mg PO Q4HRS PRN MDD 10mg Primidone 50 Mg Tablet 50 Mg PO BID Depakote Sprinkle (Divalproex Sodium) 125 Mg Cap.sprink 750 Mg PO QHS Depakote Sprinkle (Divalproex Sodium) 125 Mg Cap.sprink 500 Mg PO DAILY Nystatin 15 Gm Powder 1 Naida TP BID PRN Tylenol (Acetaminophen) 325 Mg Tablet 650 Mg PO PRN Q8HRS PRN Artificial Tears Eye Drops (Dextran 70/Hypromellose) 15 Ml Drops 1 Drop OU TID Zyloprim (Allopurinol) 100 Mg Tablet 100 Mg PO DAILY Synthroid (Levothyroxine Sodium) 25 Mcg Tablet 25 Mcg PO DAILY06 Senokot (Sennosides) 8.6 Mg Tablet 8.6 Mg PO BID Miralax (Polyethylene Glycol 3350) 17 Gm Powd.pack 17 Gm PO DAILY Aspirin 81 Mg Tab.chew 81 Mg PO DAILY Diagnosis: Problems: (1) Bipolar affective disorder, mixed (2) Schizoaffective disorder, chronic condition with acute exacerbation (3) Mild cognitive disorder (4) Impulse control disorder (5) Anxiety disorder CARLA HOWARD MD Jun 22, 2017 18:47
--- NOTE | 2017-06-23 08:14 | PN ---
DATE: 06/21/2017 PSYCHIATRIC PROGRESS NOTE This is a late entry for 06/21/2017, covers elements not covered in my initial note. Met with the patient evening of 06/21/2017, staffed at a treatment team meeting morning of 06/21/2017. Previous evening, the patient was screaming around midnight for water. She is trying to get the attention of staff member, did redirect, able to sit down for bingo. REVIEW OF SYSTEMS: Ambulation impaired, in wheelchair. No CV, , pulmonary, eye system symptoms on review. MENTAL STATUS EXAM: Oriented to herself and situation. Speech coherent, less pressured. Abstraction fair, computation impaired, language function intact, attention span short, mood and affect, lability is improved. LABORATORY DATA: Reviewed. IMPRESSION: Unchanged from initial note. PLAN: Continue current psychotropics, reviewed drug interactions, risk/benefit ratio favors no further change at this time. CARLA HOWARD MD DR: MOISES/tamera JOB#: [id number] / [id number]
--- NOTE | 2017-06-23 20:34 | DS ---
DATE OF DISCHARGE: 06/22/2017 DISCHARGE SUMMARY/PSYCHIATRIC PROGRESS NOTE This is a late entry for 06/22/2017, covers elements not covered in my initial note. REASON FOR ADMISSION: Please refer to the admission history for details. Briefly, the patient is a 66-year-old female admitted from [facility] by her primary care physician on account of worsening for her schizoaffective disorder, bipolar type. The patient was throwing objects at staff, refusing medications, yelling, disruptive in her behavior, and hallucinating. She had failed outpatient psychiatric interventions resulting in this referral. SIGNIFICANT FINDINGS AND CLINICAL COURSE: Following admission, the patient was seen daily individually by myself, followed medically per Dr. Booth/Dr. Almeida. She is extremely labile in her mood, psychotic, abrasive, aggressive, yelling, disruptive, hallucinating like she was prior to admission. Adjustments were made in her psychotropics and she seemed to respond to a combination of Depakote 500 mg a.m. and 750 mg at bedtime with a level of 91, therapeutic. She is also on primidone 50 mg b.i.d., Risperdal 1.5 mg in the morning and 2 mg at night, Seroquel had been tapered and discontinued, Zyprexa p.r.n. REVIEW OF SYSTEMS: Prior to discharge on 06/22/2017, ambulation impaired, in a wheelchair. No CV, , pulmonary, eye, ENT system symptoms on review. Reliability varies. MENTAL STATUS EXAM: Oriented to herself. Insight, judgment, recent memory is impaired. Speech, low in volume, coherent. Abstraction fair, computation impaired, attention span short, language function intact. Mood and affect improved. No clear suicidal or homicidal ideation at discharge. CONDITION AT DISCHARGE: Improved. FINAL DIAGNOSES: Schizoaffective disorder, bipolar type, mixed with psychotic features, in partial remission; anxiety disorder, unspecified; impulse control disorder, unspecified; mild cognitive impairment. Rest diagnoses unchanged from admission. DISCHARGE MEDICATIONS: Please refer to the MRAD. DISCHARGE INSTRUCTIONS: Outpatient psychiatric and medical followup at the assisted. Time for discharge day management greater than 30 minutes. CARLA HOWARD MD DR: MOISES/tamera JOB#: [id number] / [id number]
== END 2017-06-22 11:58 | disposition home or self-care (01) | DRG 885 ==
LOC: ER 08:55 → GEROPSY 12:00
PROVIDERS: ADMIT Psychiatry & Neurology Psychiatry; ATTEND Psychiatry & Neurology Psychiatry
DX: F25.0 Schizoaffective disorder, bipolar type (principal); G20 Parkinson's disease; R53.2 Functional quadriplegia; F02.80 Dementia in other diseases classified elsewhere, unspecified severity, without behavioral disturbance, psychotic disturbance, mood disturbance, and anxiety; J44.9 Chronic obstructive pulmonary disease, unspecified; E11.9 Type 2 diabetes mellitus without complications; E55.9 Vitamin D deficiency, unspecified; E03.9 Hypothyroidism, unspecified; E87.6 Hypokalemia; E78.5 Hyperlipidemia, unspecified; F41.9 Anxiety disorder, unspecified; R00.0 Tachycardia, unspecified; K59.00 Constipation, unspecified; F63.9 Impulse disorder, unspecified; F09 Unspecified mental disorder due to known physiological condition; I10 Essential (primary) hypertension; Z66 Do not resuscitate; Z79.899 Other long term (current) drug therapy; Z91.81 History of falling; Z99.3 Dependence on wheelchair; Z88.6 Allergy status to analgesic agent; Z88.5 Allergy status to narcotic agent; Z88.8 Allergy status to other drugs, medicaments and biological substances; Z23 Encounter for immunization
CPT/HCPCS: 36415; 80053; 80061; 80164; 80307; 81001; 82140; 82248; 82306; 82607; 83036; 83540; 83550; 83735; 84436; 84443; 84480; 84484; 85025; 85027; 86592; 86593; 90732; 93005; 93306; G0480; 99285-25; G0479